=== PATIENT | male | born 1970 | race Caucasian/White ===

== ENCOUNTER 2019-05-07 12:46 | Inpatient (IN) | payer OTHER ==
[~2019-05-07] VITALS: Ht 167.6 cm; Wt 63.6 kg
[~2019-05-07 12:46] MED LIST: ETOMIDATE 20 MG INJ ONE; SUCCINYLCHOLINE CHLORIDE 100 MG/5 ML SYG IV ONE
[2019-05-07 12:57] VITALS: Ht 167.6 cm; Wt 63.6 kg
[2019-05-07] MEDS ORDERED: SOD CHLORIDE 0.9% 2,000 ML IV STA (12:57)
[2019-05-07] MEDS ORDERED: LIDOCAINE 1% (MPF) 5 ML VIAL SC ONE (13:00)
--- NOTE | 2019-05-07 13:41 | ERD ---
ER Documentation Chief Complaint Chief Complaint ABD PAIN. HYPOTENSION. ALTERED. IV DRUG USER HPI This is a 49-year-old male who is diabetic, left forearm amputation, IV drug user, he was brought in from home because he was altered. He has not been taking his insulin apparently and he is trying to go through detox off heroin using methadone. He has been eating at home for the past couple days. There is very limited history and the patient does not give a good history whatsoever due to his mental status ROS All systems reviewed and are negative except as per history of present illness. Medications Home Meds Unable to Obtain Active Prescriptions or Reported Meds Allergies Allergies: Coded Allergies: No Known Allergy (Unverified , 05/07/19) FmHx Unable to obtain due to mental status Physical Exam Vitals Vital Signs Date Temp Pulse Resp B/P (MAP) Pulse Ox O2 O2 Flow FiO2 Time Delivery Rate 05/07/19 99.2 130 32 120/71 99 Nasal 3.0 17:56 (87) Cannula 05/07/19 99.2 132 34 108/67 99 Nasal 3.0 17:23 (81) Cannula 05/07/19 99.2 132 35 110/61 100 Nasal 3.0 16:32 (77) Cannula 05/07/19 99.2 133 26 127/56 96 Nasal 3.0 16:23 (79) Cannula 05/07/19 99.2 130 28 83/62 (69) 100 Nasal 3.0 15:30 Cannula 05/07/19 2.0 13:47 05/07/19 99.2 120 28 91/61 (71) 100 Nasal 2.0 13:30 Cannula 05/07/19 Nasal 3 13:17 Cannula 05/07/19 99.2 121 30 83/83 (83) 63 12:57 Physical Exam Const: Well-developed, well-nourished Head: Atraumatic, normocephalic Eyes: Normal Conjunctiva, PERRLA, EOMI, normal sclera, no nystagmus ENT: Normal External Ears, Nose and Mouth, dry mucus membranes. Neck: Full range of motion. No meningismus, no lymphadenopathy. Resp: Clear to auscultation bilaterally, no wheezing, rhonchi, rales Cardio: Tachycardia, no murmurs, S1 S2 present] Abd: Soft, non tender x 4, non distended. Normal bowel sounds, no guarding or rebound, no pulsitile abdominal masses or bruits Skin: No petechiae or rashes, no ecchymosis , no maculopapular rash Back: No midline or flank tenderness Ext: No cyanosis, or edema, FROM x 4, normal inspection, neurovascular ly intact x 4 Neur: [Difficult to assess. Patient is awake answers limited questions, gross range of motion x4 Psych: Cannot assess Result Diagram: 05/07/19 1341 05/07/19 1341 Results 24 hrs Laboratory Tests Test 05/07/19 12:57 05/07/19 13:22 05/07/19 13:41 05/07/19 13:42 Blood Gas Blood arterial Specimen Source Arterial Blood 05/07/2019 1:38: Date Drawn 15 PM Arterial Blood 7.195 pH (Temp corrected ) Arterial Blood 17.7 mmhg pCO2 (Temp correct) Arterial Blood 120.5 mmHG pO2 (Temp corrected ) Arterial Blood 6.7 mmol/L HCO3 Arterial Blood -19.1 mmol/L Base Excess Arterial Blood 98.2 mmHG Oxygen Saturati on Benedict Test N/A Arterial Blood Right Brachial Gas Puncture Site Arterial 0.4 % Blood Carboxyhe moglobin Arterial Blood 0.3 % Methemoglobin Blood Gas A-a 51.1 mmHg O2 Differential Oxyhemoglobin 97.5 % Percent Blood Gas 37.0 C Temperature Blood Gas NASAL CANNULA Modality FiO2 27.0 % Blood Gas TEE [place] Critical Value Read Back Blood Gas [facility] Notified Whom Blood Gas 05/07/2019 1:41: Notified Time 46 PM Bedside Glucose 493 mg/dL White Blood 28.0 10^3/ul Count Red Blood Count 5.28 10^6/ul Hemoglobin 13.1 g/dl Hematocrit 38.0 % Mean 72.0 fl Corpuscular Volume Mean 24.8 pg Corpuscular Hemoglobin Mean 34.5 g/dl Corpuscular Hemoglobin Conc ent Red Cell 13.3 % Distribution Width Platelet Count 289 10^3/UL Mean Platelet 10.0 fl Volume Immature 12.700 % Granulocytes % Neutrophils % % Segmented 37 % Neutrophils % (Manual) Band 49 % Neutrophils % (Manual) Lymphocytes % % Reactive 1 % Lymphocytes % (Manual) Monocytes % % Monocytes % 6 % (Manual) Eosinophils % % Basophils % % Metamyelocytes 1 % % (manual) Myelocytes % 3 % (Manual) Promyelocytes % 3 % (Manual) Nucleated Red 0.0 /100WBC Blood Cells % Immature 3.550 10^3/ul Granulocytes # Neutrophils # 10^3/ul Neutrophils # 14.2 10^3/ul (Manual) Band 13.7 10^3/ul Neutrophils # Lymphocytes # 10^3/ul Reactive 0.2 10^3/ul Lymphocytes # Monocytes # 10^3/ul Monocytes # 1.6 10^3/ul (Manual) Eosinophils # 10^3/ul Basophils # 10^3/ul Metamyelocytes 0.2 10^3/ul # Myelocytes # 0.8 10^3/ul Promyelocytes # 0.8 10^3/ul Nucleated Red 10^3/ul Blood Cells # Pathologist YES Review (Hematol ogy) Platelet NORMAL Estimate Poikilocytosis 2+ Sodium Level 121 mmol/L Potassium Level 3.9 mmol/L Chloride Level 89 mmol/L Carbon Dioxide 8 mmol/L Level Anion Gap 24 Blood Urea 34 mg/dl Nitrogen Creatinine 1.48 mg/dl Est Glomerular 50 mL/min Filtrat Rate mL/min Glucose Level 514 mg/dl Calcium Level 10.3 mg/dl Phosphorus 2.7 mg/dl Level Magnesium Level 2.0 mg/dl Total Bilirubin 0.3 mg/dl Direct 0.00 mg/dl Bilirubin Indirect 0.3 mg/dl Bilirubin Aspartate Amino 43 IU/L Transf (AST/SGO T) Alanine 34 IU/L Aminotransferas e (ALT/SGPT) Alkaline 190 IU/L Phosphatase Total Protein 7.6 g/dl Albumin 3.5 g/dl Globulin 4.10 g/dl Albumin/Globuli 0.85 n Ratio POC Venous 3.2 mmol/L Lactate Test 05/07/19 16:01 05/07/19 16:09 Bedside Glucose 419 mg/dL Urine Color YELLOW Urine Clarity SLIGHTLY CLOUDY Urine pH 6.0 Urine Specific 1.011 [place] Urine Ketones 1+ mg/dL Urine Nitrite NEGATIVE mg/dL Urine Bilirubin NEGATIVE mg/dL Urine NEGATIVE mg/dL Urobilinogen Urine Leukocyte NEGATIVE Cynthia/ul Esterase Urine 0 /HPF Microscopic RBC Urine 7 /HPF Microscopic WBC Urine 3+ mg/dL Hemoglobin Urine Glucose 3+ mg/dL Urine Total 1+ mg/dl Protein Current Medications Medications Dose Sig/Emiliano Start Time Status Last (Trade) Ordered Route PRN Stop Time Admin Dose Reason Admin Sodium 2,000 ml @ Q1H STAT 05/07/19 DC 05/07/19 Chloride 2,000 mls/hr IV 12:57 13:29 05/07/19 13:56 Lidocaine 5 ml ONCE ONCE 05/07/19 DC (Xylocaine SC 13:00 1% (Mpf)) 05/07/19 13:48 Sodium 1,910 ml BOLUS OVER 2 05/07/19 DC Chloride HOURS STAT 14:57 (NS) IV* 05/07/19 15:01 Cefepime HCl 50 ml @ ONCE STAT 05/07/19 DC 05/07/19 100 mls/hr IVPB 14:57 15:12 05/07/19 15:26 Vancomycin 250 ml @ ONCE ONCE 05/07/19 DC 05/07/19 HCl 125 mls/hr IVPB 15:00 16:03 05/07/19 16:59 Potassium 1,000 ml @ Q0M IV 05/07/19 Chloride/Sodi 0 mls/hr 14:59 um Chloride Potassium 1,000 ml @ Q0M IV 05/07/19 05/07/19 Chloride/Dext 0 mls/hr 14:59 17:10 joann/ Sod Cl Potassium 1,000 ml @ Q0M IV 05/07/19 05/07/19 Chloride/Sodi 0 mls/hr 14:59 16:10 um Chloride Potassium 1,000 ml @ Q0M IV 05/07/19 Chloride/Dext 0 mls/hr 14:59 joann/ Sod Cl Sodium 1,000 ml @ Q0M IV 05/07/19 Chloride 0 mls/hr 14:59 1,000 ml @ Q0M IV 05/07/19 Dextrose/Sodi 0 mls/hr 14:59 um Chloride Insulin 101 ml @ ER DKA 05/07/19 05/07/19 Human 6.43 mls/hr PROTOCOL IV 15:00 16:08 Regular 100 unit/ Sodium Chloride Lactated 640 ml @ ONCE ONCE 05/07/19 DC 05/07/19 Ringer's 640 mls/hr IV 15:00 15:12 05/07/19 15:59 HYPOGLYCEM 05/07/19 Miscellaneous HYPOGLYCEMIA PROTOCOL PRN 15:00 TREATMENT XX Information .HYPOGLYCEMIA (* PROTOCOL Miscellaneous Pharmacy Order) Dextrose 50 ml Q15M PRN 05/07/19 (D50w IV 15:00 Syringe) .DECREASED GLUCOSE Dextrose 25 ml Q15M PRN 05/07/19 (D50w IV 15:00 Syringe) .DECREASED GLUCOSE Morphine 4 mg ONCE STAT 05/07/19 DC 05/07/19 Sulfate IV 15:04 15:14 (morphine) 05/07/19 15:12 Morphine 4 mg STK-MED 05/07/19 DC Sulfate ONCE .ROUTE 15:10 (morphine) 05/07/19 15:11 IV Flush 10 ml PRN PRN 05/07/19 (NS 10 ml) IV IV 17:30 PROTOCOL Procedures/MDM Patient has low blood pressure and is a very difficult stick. He is in need of any emergent PICC line. One was ordered. [place] [id number] Radiology Main Line: [phone] DIAGNOSTIC IMAGING REPORT Patient: ELÍAS SOLIS : 1970 Age: 49 Sex: M MR #: [id number] DOS: 05/07/19 1525 Ordering MD: ADRIANA OLIVEIRA DO Location: E/R Room/Bed: PROCEDURE: CT Abdomen and Pelvis Without Intravenous Contrast CLINICAL INDICATION: TECHNIQUE: Axial computed tomography images of the abdomen and pelvis without intravenous contrast. Sagittal and coronal reformatted images were created and reviewed. CTDIvol (mGy) = 12.40; total DLP (mGy-cm) = 786.69. This CT exam was performed using one or more of the following dose reduction techniques: automated exposure control, adjustment of the mA and/or kV according to patient size, and/or use of iterative reconstruction technique. DICOM images are available. COMPARISON: None FINDINGS: LUNG BASES: Multiple noncalcified nodules at the lung bases, measuring up to 15 mm in diameter. 1 lesion, seen in the anterior aspect of the right lung base, demonstrate central cavitation. PLEURAL SPACE: Small right pleural effusion. ABDOMEN: LIVER: Unremarkable. GALLBLADDER AND BILE DUCTS: Unremarkable. No calcified stones. No ductal dilation. PANCREAS: Unremarkable. No ductal dilation. SPLEEN: Unremarkable. No splenomegaly. ADRENALS: Unremarkable. No mass. KIDNEYS AND URETERS: Nonobstructing 4 mm calculus mid left kidney. No hydronephrosis. The right kidney is unremarkable in appearance. STOMACH AND BOWEL: Retained stool in the ascending colon. No inflammatory changes of the bowel. No obstruction. No mucosal thickening. PELVIS: APPENDIX: No findings to suggest acute appendicitis. BLADDER: Unremarkable. No stones. REPRODUCTIVE: Unremarkable as visualized. ABDOMEN and PELVIS: INTRAPERITONEAL SPACE: Unremarkable. No free air. No significant fluid collection. BONES/JOINTS: Scoliosis and degeneration of the lumbar spine. No osteolytic bone lesions are noted. No acute fracture. No dislocation. SOFT TISSUES: Mild gynecomastia bilaterally. VASCULATURE: Unremarkable. LYMPH NODES: Unremarkable. No enlarged lymph nodes. IMPRESSION: 1. Multiple noncalcified nodules at the lung bases, measuring up to 15 mm in diameter. 1 lesion, seen in the anterior aspect of the right lung base, demonstrate central cavitation. The nodules are suspicious for metastatic disease. Other entities such as infection / septic emboli or autoimmune disease could have a similar appearance. Consider CT chest for further evaluation. 2. Nonobstructing 4 mm calculus mid left kidney. No hydronephrosis. 3. Retained stool in the ascending colon. No inflammatory changes of the bowel. 4. No abnormal mass, adenopathy, or ascites in the abdomen and pelvis. RPTAT: [facility] Aneesh Sibley Physician Lodging Manager Date Time Electronically viewed and signed by Aneesh Sibley Physician Lodging Manager on 05/07/2019 16:15 C/ CC: ADRIANA OLIVEIRA DO [id number] [place] [address] Radiology Main Line: [phone] DIAGNOSTIC IMAGING REPORT Patient: ELÍAS SOLIS : 1970 Age: 49 Sex: M MR #: [id number] DOS: 05/07/19 1257 Ordering MD: ADRIANA OLIVEIRA DO Location: E/R Room/Bed: PROCEDURE: CT Brain without contrast. CLINICAL INDICATION: Hyperglycemia TECHNIQUE: A CT of the brain was performed on a GE LightSpeed 64-slice CT scanner utilizing axial imaging from the skull base through the vertex without IV contrast. Multiplanar reformatted images were made. Images were reviewed on a PACS workstation. The CTDIvol is 36.21 mGy and the DLP is 634.23 mGycm. DICOM images are available. One or more of the following dose reduction techniques were utilized: 1.) Automated exposure control 2.) Adjustment of the mA +/- kV according to patient's size 3.) Use of iterative reconstruction technique. COMPARISON: None FINDINGS: There is no intracranial hemorrhage, mass effect, or midline shift. No extra- axial fluid collection is seen. The ventricles and sulci are normal in size and configuration. The density of the brain is normal, and the mcdonald white matter differentiation appears well-preserved. The visualized paranasal sinuses and osseous structures are grossly unremarkable. IMPRESSION: 1. No evidence of acute intracranial pathology. Diomedes Russo Physician Date Time Electronically viewed and signed by Diomedes Russo Physician on 05/07/2019 16:03 ML/ CC: ADRIANA OLIVEIRA DO [id number] [place] [address] Radiology Main Line: [phone] DIAGNOSTIC IMAGING REPORT Patient: ELÍAS SOLIS : 1970 Age: 49 Sex: M MR #: [id number] DOS: 05/07/19 1257 Ordering MD: ADRIANA OLIVEIRA DO Location: E/R Room/Bed: PROCEDURE: XR Chest, 1 View CLINICAL INDICATION: Hyperglycemia TECHNIQUE: Frontal view of the chest. COMPARISON: None FINDINGS: LUNGS: 1.5 cm nonspecific nodule in the lateral aspect of the right upper lobe, overlying the right fifth posterior rib. Mild atelectasis at the lung bases. No consolidative pulmonary infiltrates noted. PLEURAL SPACE: Unremarkable. No pneumothorax. HEART: Mild cardiomegaly. MEDIASTINUM: Unremarkable. BONES/JOINTS: Old healed left rib fracture. Mild degenerative spine changes. TUBES, LINES AND DEVICES: There is a right-sided PICC line present, with distal tip overlying the right atrium. IMPRESSION: 1. There is a right-sided PICC line present, with distal tip overlying the right atrium. 2. 1.5 cm nonspecific nodule in the lateral aspect of the right upper lobe. Consider CT of the chest for further assessment. 3. Mild atelectasis at the lung bases. No consolidative pulmonary infiltrates noted. RPTAT: [facility] Aneesh Sibley, Physician Lodging Manager Date Time Electronically viewed and signed by Aneesh Sibley Physician Lodging Manager on 05/07/2019 16:07 RmC/ CC: ADRIANA OLIVEIRA DO [id number] Patient is in DKA we started DKA protocol. Admit to ICU to Dr. Froilan Johnson. Critical Care Time: 45 minutes Treatments/Evaluations: Close monitoring and treatment of unstable vital signs, cardiorespiratory, and neurologic status, while maintaining tight balance of fluid, respiratory, and cardiac interventions. This time includes discussing the case with the patient and the patient's family. This time does not include all procedures stated elsewhere in this record. This time also includes reviewing old records, labs and radiological studies. This time includes examining and re- examining the patient. Additionally, this time also includes arranging care with admitting and consulting physicians. Departure Diagnosis: Primary Impression: DKA (diabetic ketoacidoses) Diabetes mellitus type: type 1 Diabetes mellitus complication detail: without coma Qualified Codes: E10.10 - Type 1 diabetes mellitus with ketoacidosis without coma Condition: ADRIANA Baird DO May 07, 2019 13:41
[2019-05-07] MEDS ORDERED: CEFEPIME 2GM/50 ML (PMX) 50 ML IVPB STA (14:57)
[2019-05-07] MEDS ORDERED: SODIUM CHLORIDE 0.9% 1L BAG IV* STA (14:57)
[2019-05-07] MEDS ORDERED: D10/0.45% NACL + KCL 30 MEQ 1,000 ML IV SCH ×2 (14:59→19:27)
[2019-05-07] MEDS ORDERED: NS + KCL 40 MEQ 1,000 ML IV SCH ×2 (14:59→19:27)
[2019-05-07] MEDS ORDERED: DEXTROSE 10%/0.45% NACL 1,000 ML IV SCH ×2 (14:59→19:27)
[2019-05-07] MEDS ORDERED: D10/0.45% NACL + KCL 40 MEQ 1,000 ML IV SCH ×2 (14:59→19:27)
[2019-05-07] MEDS ORDERED: SOD CHLORIDE 0.9% 1,000 ML IV SCH ×4 (14:59→19:30)
[2019-05-07] MEDS ORDERED: INSULIN REGULAR, HUMAN 100 UNIT in SOD CHLORIDE 0.9% 100 ML IV SCH ×4 (15:00→19:30)
[2019-05-07] MEDS ORDERED: VANCOMYCIN 1 GM (PMX) 250 ML IVPB ONE (15:00)
[2019-05-07] MEDS ORDERED: DEXTROSE 50% 50 ML SYRINGE IV PRN ×4 (15:00→19:30)
[2019-05-07] MEDS ORDERED: LACTATED RINGER'S 640 ML IV ONE (15:00)
[2019-05-07] MEDS ORDERED: morphine 4 MG/ML VIAL IV STA (15:04)
[2019-05-07] MEDS ORDERED: morphine 4 MG/ML VIAL ONE (15:10)
[2019-05-07] MEDS: NS + KCL 30 MEQ 1,000 ML IV SCH ×2 (16:10→23:30)
[2019-05-07] MEDS ORDERED: ACETAMINOPHEN 325 MG TAB PO PRN ×2 (18:30→20:00)
[2019-05-07] MEDS ORDERED: ONDANSETRON 4 MG INJ IV PRN ×2 (18:30→20:00)
[2019-05-07] MEDS ORDERED: NS + KCL 30 MEQ 1,000 ML IV SCH (19:27)
[2019-05-07] MEDS ORDERED: MAGNESIUM SULFATE 2 GM/50 ML 50 ML IVPB ONE (19:30)
[2019-05-07] MEDS ORDERED: ACCU-CHEK XX SCH (19:30)
[2019-05-07] MEDS ORDERED: VANCOMYCIN IV PER PHARMACY XX SCH (19:30)
[2019-05-07] MEDS ORDERED: MAGNESIUM SULFATE 1 GM/D5W 100 ML IVPB ONE (19:30)
[2019-05-07] MEDS ORDERED: NPH, HUMAN INSULIN ISOPHANE 3ML VIAL SC SCH (19:30)
[2019-05-07] MEDS ORDERED: morphine 4 MG/ML VIAL IV PRN (20:00)
[2019-05-07] MEDS: SOD CHLORIDE 0.9% 1,000 ML IV SCH ×2 (20:45→23:30)
[2019-05-07] MEDS: INSULIN ASPART [NOVOLOG] 3 ML PEN SC SCH ×2 (20:45→23:30)
[2019-05-07 20:46] VITALS: PULSE 128
[2019-05-07 21:00] VITALS: BP 99/54; PULSE 130; RESP 28
[2019-05-07 22:00] VITALS: BP 95/47; PULSE 129; RESP 27
[2019-05-07 23:00] VITALS: BP 104/55; PULSE 136; RESP 19
[2019-05-07] MEDS: PIPER-TAZO 3.375 GM IV (PMX) 100 ML IVPB SCH (23:15)
--- NOTE | 2019-05-07 23:19 | QN ---
Documentation Comment I was called to the emergency department room 114 for intubation. When I arrived the patient was altered and tachypneic. He is taking fast and shallow respirations. He was not responding to commands. He will need intubation for airway protection and acidosis. He is in DKA at this time. Endotracheal Intubation by me: Pre assessment performed. Pre-oxygenation performed with 100% oxygen RSI: Performed w/o complication or hypoxic events. Medications as ordered. Blade: MAC 4 video laryngoscope ET Tube: 7.5 cm Depth: 23 cm at the lip Intubation confirmed by colorimetric CO2, equal breath sounds, quiet over the stomach. Chest x-ray is pending. MADELYN BOYER MD May 07, 2019 23:19
[2019-05-07 23:20] VITALS: RESP 20
--- NOTE | 2019-05-07 23:57 | QN ---
Documentation Comment H&P dic a/p 1. ams, presumed to be related to metabolic derangements 2. dka, unclear precipitant, cont treatment per protocol 3. res: resp failure, on vent (b) pulm nodules, clarify with ct 4. renal: acute renal failure, improving (b) metabolic acidosis, unclear etiology (c) hypophos (d) hypoK (e) hypoNa 5. r/o mi 6. presuymed sepsis, unclear source PHONG BRIGGS MD May 07, 2019 23:57
[2019-05-08] VITALS (91 sets, daily range): BP systolic 67–137; BP diastolic 36–81; PULSE 93–135; RESP 19–37
[2019-05-08] MEDS ORDERED: PROPOFOL 100 ML IV SCH
[2019-05-08] MEDS: PROPOFOL 100 ML IV SCH ×4 (00:01→20:57)
[2019-05-08] MEDS ORDERED: DEXTROSE 50% 50 ML SYRINGE IV PRN ×2 (00:30)
[2019-05-08] MEDS ORDERED: INSULIN HUMAN REGULAR 100 UNIT in SOD CHLORIDE 0.9% 99 ML IV SCH (00:30)
[2019-05-08] MEDS: ACCU-CHEK XX SCH ×7 (01:29→06:32)
[2019-05-08] MEDS ORDERED: IOHEXOL 300MG/ML 150 ML BTL ONE (02:03)
[2019-05-08] MEDS ORDERED: SOD CHLORIDE 0.9% 100 ML ONE (02:03)
[2019-05-08] MEDS: SOD CHLORIDE 0.9% 1,000 ML IV SCH ×4 (02:09→16:50)
[2019-05-08] MEDS: PIPER-TAZO 3.375 GM IV (PMX) 100 ML IVPB SCH ×3 (03:23→19:32)
--- NOTE | 2019-05-08 03:26 | HP ---
DATE OF ADMISSION: 05/07/2019 CHIEF COMPLAINT: Altered mental status. HISTORY OF PRESENT ILLNESS: The patient presents to the emergency room at [facility] with a ltered mental status. At the time of my arrival, he is intubated, unable to provide history. Calls to family have not been answered. Per my discussion with the emergency room, he has been having diff iculties where he is trying to get off of heroin and titrate methadone at home, but he was found alte red and brought here to the hospital. PAST MEDICAL HISTORY: 1. Significant for left below the elbow amputation, presumed to be related to infectious complicatio ns of intravenous drug use. 2. Diabetes. MEDICATIONS AN OUTPATIENT: Unknown at this time. SOCIAL HISTORY: The patient lives at home in [place], unclear functional status, unknown tobacco, a lcohol, or illicit drug use. FAMILY HISTORY: Unknown. REVIEW OF SYSTEMS: Unobtainable secondary to patient's status. PHYSICAL EXAMINATION: VITAL SIGNS: Blood pressure is 101/36, pulse rate 128, respirations 33, temperature is 99.2, saturat ing 99% on 3 liters nasal cannula. GENERAL: This is a middle-aged man found in bed, moderate respiratory distress, not responding to vo ice or noxious stimuli. HEENT: Normocephalic, atraumatic, no evident scleral icterus or perioral cyanosis. Mucous membranes are dry. NECK: Soft and supple without masses. No evidence of jugular venous distention or carotid bruits. CHEST: Clear to auscultation and percussion anteriorly. HEART: Tachycardic rate, regular rhythm. S1, S2. No added sounds. ABDOMEN: Soft, nontender, nondistended without palpable hepatosplenomegaly. EXTREMITIES: Without clubbing, cyanosis, or edema. Pedal pulses are not palpable. Left arm amputat ion is noted. There is a stage IV decubitus ulcer over the left greater trochanter and unstageable o mirta the right greater trochanter. SKIN: Otherwise without rashes. NEUROLOGIC: Grossly intact. LABORATORY STUDIES: Reveal a hemoglobin of 13.1 g/dL, white count of 28,000, platelets of 289,000, s odium 121, potassium 3.9, chloride 89, bicarbonate 8, BUN 34, creatinine 1.48, glucose 514. Liver fu nction tests are essentially unremarkable. Calcium 10.3. Initial lactate is 3.2. UA is negative fo r signs of infection. Arterial blood gas reveals a pH of 7.195, PCO2 of 17.7, PO2 of 120, bicarbonat e of 6.7, satting 98%. CT scan of brain reveals no acute intracranial lesions. Chest x-ray shows no acute infiltrates or effusions. CT scan of abdomen and pelvis shows some small pulmonary nodules, b ut no other acute pathology. ASSESSMENT AND PLAN: 1. Diabetic ketoacidosis. Begin insulin drip and aggressive fluid hydration. 2. Altered mental status, presumed to be related to metabolic derangement. Etiology of these derang ements is very much unclear at this time. 3. Bilateral greater trochanter decubitus ulcers. Continue to monitor. Giving IV antibiotics for l eukocytosis and altered mental status at this time. 4. Hypophosphatemia, replete. 5. Hypokalemia, replete. 6. Respiratory failure. Continue ventilatory support as per pulmonary consultation. 7. Acute renal failure, improved with hydration. 8. Rule out myocardial infarction. Dictated By: PHONG BRIGGS MD RER/NTS Conf#: [id number] DID#: [id number]
[2019-05-08] MEDS: INSULIN ASPART [NOVOLOG] 3 ML PEN SC SCH ×6 (03:30→23:51)
[2019-05-08] MEDS: NORepinephrine 8MG/250 ML (PMX 250 ML IV SCH ×2 (03:36→22:27)
[2019-05-08] MEDS: VANCOMYCIN 1 GM 250 ML IVPB SCH ×2 (04:10→16:50)
[2019-05-08] MEDS: NPH, HUMAN INSULIN ISOPHANE 3ML VIAL SC SCH ×2 (05:17→17:18)
[2019-05-08] MEDS ORDERED: LEVETIRACETAM 1000 MG (PMX) 100 ML IVPB STA (07:03)
[2019-05-08] MEDS ORDERED: LORAZEPAM 2 MG INJ IV ONE (07:30)
[2019-05-08] MEDS ORDERED: POTASSIUM CHLORIDE 50 ML IVPB PRN (10:00)
[2019-05-08] MEDS: ACETAMINOPHEN 650MG/20.3ML CUP NGT PRN (10:13)
[2019-05-08] MEDS: POTASSIUM CHLORIDE 50 ML IVPB SCH ×3 (10:14→13:48)
--- NOTE | 2019-05-08 12:24 | PN ---
Date/Time of Note Date/Time of Note DATE: 05/08/19 TIME: 12:21 Assessment/Plan VTE Prophylaxis [place] [facility] risk: 8 SCD applied [place] [facility] No SCD contraindicated: other Pharmacological prophylaxis: LMWH Lines/Catheters IV Catheter Type (from [facility]): PICC Line Central line still needed: Yes Urinary Cath still in place: Yes Reason Cath still needed: pres ulcer contaminated by urine Assessment/Plan Assessment/Plan 1. sepsis, secondary to staph bacteremia, unclear source, consider spinal abscess or endocarditis most likely (Picc placed in er at time of arrival), cont vanco and zosyn while awaiting sensitivities (b) septic shock cont levophed 2. cards:L r/o endocarditis, aweait echo, cards eval, favor ELIE 3. pulm: cont vent support (b) ongoign acidosis, unclear cause, ?deep abscess monitor, consider tagged wbc if not improved 4. renal: acute renal failure, resolved 5. dka resolved Result Diagram: 05/08/190 05/08/19439 Results 24hrs Laboratory Tests Test 05/07/19 12:57 05/07/19 13:22 05/07/19 13:41 05/07/19 13:42 Blood Gas Blood arterial Specimen Source Arterial Blood 05/07/2019 1:38: Date Drawn 15 PM Arterial Blood 7.195 *L pH (Temp corrected ) Arterial Blood 17.7 L pCO2 (Temp correct) Arterial Blood 120.5 H pO2 (Temp corrected ) Arterial Blood 6.7 *L HCO3 Arterial Blood -19.1 L Base Excess Arterial Blood 98.2 H Oxygen Saturati on Benedict Test N/A Arterial Blood Right Brachial Gas Puncture Site Arterial 0.4 Blood Carboxyhe moglobin Arterial Blood 0.3 Methemoglobin Blood Gas A-a 51.1 H O2 Differential Oxyhemoglobin 97.5 Percent Blood Gas 37.0 Temperature Blood Gas NASAL CANNULA Modality FiO2 27.0 Blood Gas TEE Medina Critical Value Read Back Blood Gas MDA Notified Whom Blood Gas 05/07/2019 1:41: Notified Time 46 PM Bedside Glucose 493 *H White Blood 28.0 H Count Red Blood Count 5.28 Hemoglobin 13.1 L Hematocrit 38.0 L Mean 72.0 L Corpuscular Volume Mean 24.8 L Corpuscular Hemoglobin Mean 34.5 Corpuscular Hemoglobin Conc ent Red Cell 13.3 Distribution Width Platelet Count 289 Mean Platelet 10.0 Volume Immature 12.700 H Granulocytes % Neutrophils % Segmented 37 L Neutrophils % (Manual) Band 49 H Neutrophils % (Manual) Lymphocytes % Reactive 1 H Lymphocytes % (Manual) Monocytes % Monocytes % 6 (Manual) Eosinophils % Basophils % Metamyelocytes 1 H % (manual) Myelocytes % 3 H (Manual) Promyelocytes % 3 H (Manual) Nucleated Red 0.0 Blood Cells % Immature 3.550 H Granulocytes # Neutrophils # Neutrophils # 14.2 H (Manual) Band 13.7 H Neutrophils # Lymphocytes # Reactive 0.2 H Lymphocytes # Monocytes # Monocytes # 1.6 H (Manual) Eosinophils # Basophils # Metamyelocytes 0.2 H # Myelocytes # 0.8 H Promyelocytes # 0.8 H Nucleated Red Blood Cells # Pathologist YES Review (Hematol ogy) Platelet NORMAL Estimate Poikilocytosis 2+ Sodium Level 121 L Potassium Level 3.9 Chloride Level 89 L Carbon Dioxide 8 *L Level Anion Gap 24 H Blood Urea 34 H Nitrogen Creatinine 1.48 H Est Glomerular 50 L Filtrat Rate mL/min Glucose Level 514 *H Calcium Level 10.3 H Phosphorus 2.7 Level Magnesium Level 2.0 Total Bilirubin 0.3 Direct 0.00 Bilirubin Indirect 0.3 Bilirubin Aspartate Amino 43 Transf (AST/SGO T) Alanine 34 Aminotransferas e (ALT/SGPT) Alkaline 190 H Phosphatase Total Protein 7.6 Albumin 3.5 Globulin 4.10 H Albumin/Globuli 0.85 n Ratio POC Venous 3.2 *H Lactate Test 05/07/19 16:01 05/07/19 16:09 05/07/19 16:59 05/07/19 19:30 Bedside Glucose 419 *H Urine Color YELLOW Urine Clarity SLIGHTLY CLOUDY A Urine pH 6.0 Urine Specific 1.011 Kermit Urine Ketones 1+ H Urine Nitrite NEGATIVE Urine Bilirubin NEGATIVE Urine NEGATIVE Urobilinogen Urine Leukocyte NEGATIVE Esterase Urine 0 Microscopic RBC Urine 7 H Microscopic WBC Urine 3+ H Hemoglobin Urine Glucose 3+ H Urine Total 1+ H Protein Blood Gas Blood venous Specimen Source Arterial Blood 05/07/2019 5:30 Date Drawn :51 PM Arterial Blood OTHER Gas Puncture Site Benedict Test N/A Venous Blood pH 7.110 *L Venous Blood 30.1 L pCO2 (Temp Corrected ) Venous Blood 44.4 H pO2 (Temp Corrected ) Venous Blood 9.3 L HCO3 Venous Blood 75.0 Oxygen Saturation Venous Blood -18.9 L Base Excess Venous Blood 12.9 Total Hemoglobin Venous Blood 74.6 Oxyhemoglobin Venous Blood 0.4 Methemoglobin Blood Gas A-a 112.5 O2 Differential Carboxyhemoglob 0.1 in Blood Gas 37.0 Temperature Blood Gas NASAL CANNULA Modality FiO2 27.0 Blood Gas TEE Medina Critical Value Read Back Blood Gas MDA Notified Whom Blood Gas 05/07/2019 5:39 Notified Time :29 PM Sodium Level 129 L Potassium Level 5.9 #H Chloride Level 109 # Carbon Dioxide 13 L Level Anion Gap 7 # Blood Urea 25 H Nitrogen Creatinine 0.66 Est Glomerular > 60 Filtrat Rate mL/min Glucose Level 283 #H Lactic Acid 2.5 *H Level Calcium Level 8.1 L Phosphorus 1.1 #L Level Magnesium Level 1.4 L Acetone Level NEGATIVE (Chemistry) Test 05/07/19 21:09 05/07/19 21:29 05/07/19 21:46 05/07/19 22:42 Blood Gas Blood arterial Specimen Source Arterial Blood 05/07/2019 9:15: Date Drawn 33 PM Arterial Blood 7.185 *L pH (Temp corrected ) Arterial Blood 37.0 pCO2 (Temp correct) Arterial Blood 91.9 pO2 (Temp corrected ) Arterial Blood 13.7 L HCO3 Arterial Blood -13.7 L Base Excess Arterial Blood 96.4 Oxygen Saturati on Benedict Test ACCEPTAB Arterial Blood Right Radial Gas Puncture Site Arterial 0.3 Blood Carboxyhe moglobin Arterial Blood 0.4 Methemoglobin Blood Gas A-a 100.2 H O2 Differential Oxyhemoglobin 95.7 Percent Blood Gas 37.0 Temperature Blood Gas 20 Actual Respiration Rat e Blood Gas NASAL CANNULA Modality FiO2 33.0 Blood Gas [facility] Critical Value Read Back Blood Gas Notified Whom Blood Gas 05/07/2019 9:23: Notified Time 46 PM Bedside Glucose 284 H 254 H Sodium Level 128 L Potassium Level 3.2 #L Chloride Level 106 Carbon Dioxide 14 L Level Anion Gap 8 Blood Urea 27 H Nitrogen Creatinine 0.74 Est Glomerular > 60 Filtrat Rate mL/min Glucose Level 244 H Lactic Acid 2.0 Level Calcium Level 9.6 Phosphorus 1.0 L Level Magnesium Level 1.7 Test 05/07/19 23:39 05/08/19 00:10 05/08/19 00:24 05/08/19 01:29 Bedside Glucose 256 H 250 H Blood Gas Blood arterial Specimen Source Arterial Blood 05/08/2019 12:23 Date Drawn :53 AM Arterial Blood 7.263 *L pH (Temp corrected ) Arterial Blood 32.1 L pCO2 (Temp correct) Arterial Blood 490.4 H pO2 (Temp corrected ) Arterial Blood 14.2 L HCO3 Arterial Blood -11.7 L Base Excess Arterial Blood 99.6 H Oxygen Saturati on Benedict Test ACCEPTAB Arterial Blood Right Radial Gas Puncture Site Arterial 0.3 Blood Carboxyhe moglobin Arterial Blood 0.4 Methemoglobin Blood Gas A-a 190.5 H O2 Differential Oxyhemoglobin 98.9 Percent Blood Gas 37.0 Temperature Blood Gas 20.0 Respiration Rate Blood Gas 31 Actual Respiration Rat e Blood Gas VENT - AC Modality FiO2 100.0 Blood Gas Tidal 500.0 Volume Blood Gas Low 5.0 PEEP Setting Blood Gas Jace Lanier RN Critical Value Read Back Blood Gas Kerrie Madden [facility] Notified Whom Blood Gas 05/08/2019 12:32 Notified Time :35 AM Lactic Acid 2.1 *H Level Troponin I < 0.012 Test 05/08/19 01:50 05/08/19 02:48 05/08/19 02:54 05/08/19 03:58 Bedside Glucose 246 H 284 H 196 Lactic Acid 2.2 *H Level Test 05/08/19 04:40 05/08/19 05:04 05/08/19 06:08 05/08/19 07:56 White Blood 16.2 #H Count Red Blood Count 4.21 #L Hemoglobin 10.5 L Hematocrit 30.3 #L Mean 72.0 L Corpuscular Volume Mean 24.9 L Corpuscular Hemoglobin Mean 34.7 Corpuscular Hemoglobin Conc ent Red Cell 13.9 Distribution Width Platelet Count 189 # Mean Platelet 10.5 H Volume Immature 1.900 H Granulocytes % Neutrophils % Segmented 25 L Neutrophils % (Manual) Band 48 H Neutrophils % (Manual) Lymphocytes % Lymphocytes % 4 L (Manual) Monocytes % Monocytes % 13 H (Manual) Eosinophils % Basophils % Metamyelocytes 10 H % (manual) Myelocytes % 1 H (Manual) Nucleated Red 0.0 Blood Cells % Immature 0.310 H Granulocytes # Neutrophils # Neutrophils # 5.3 (Manual) Band 7.7 H Neutrophils # Lymphocytes 0.6 L (Manual) Lymphocytes # Monocytes # Monocytes # 2.1 H (Manual) Eosinophils # Basophils # Metamyelocytes 1.6 H # Myelocytes # 0.1 H Nucleated Red Blood Cells # Toxic 1+ Granulation Dohle Bodies 1+ Platelet NORMAL Estimate Platelet @See below Morphology Comment Poikilocytosis 2+ Sodium Level 135 Potassium Level 3.1 L Chloride Level 111 H Carbon Dioxide 16 L Level Anion Gap 8 Blood Urea 22 H Nitrogen Creatinine 0.76 Est Glomerular > 60 Filtrat Rate mL/min Glucose Level 162 Lactic Acid 2.0 Level Calcium Level 9.7 Phosphorus 0.5 L Level Magnesium Level 1.7 Total Bilirubin 0.2 Direct 0.00 Bilirubin Indirect 0.2 Bilirubin Aspartate Amino 58 H Transf (AST/SGO T) Alanine 37 Aminotransferas e (ALT/SGPT) Alkaline 130 H Phosphatase Troponin I 0.017 Total Protein 5.2 #L Albumin 2.1 #L Globulin 3.10 Albumin/Globuli 0.67 n Ratio Bedside Glucose 193 262 H 104 Test 05/08/19 09:00 05/08/19 11:38 Urine Opiates Positive Screen Urine Negative Barbiturates Urine Negative Amphetamines Screen Urine Negative Benzodiazepines Screen Urine Cocaine Negative Screen Urine Negative Cannabinoids Bedside Glucose 253 H Subjective 24 Hr Interval Summary Free Text/Dictation no response to voice or exam Exam/Review of Systems Exam Vitals Vital Signs Date Temp Pulse Resp B/P (MAP) Pulse Ox O2 O2 Flow FiO2 Time Delivery Rate 05/08/19 126 26 83/49 (60) 100 11:45 05/08/19 99.2 Mechanical 11:00 Ventilator 05/08/19 50 09:04 05/07/19 2.0 20:40 Intake and Output 05/07/19 05/07/19 05/08/19 1515:00 23:00 07:00 IntakeIntake Total 512.86 ml 1533.441 ml OutputOutput Total 700 ml BalanceBalance 512.86 ml 833.441 ml Exam intubated, sedated, on pressor soft nt, no edema, decub bilat greater trochanter Results Results 24hrs Laboratory Tests Test 05/07/19 12:57 05/07/19 13:22 05/07/19 13:41 05/07/19 13:42 Blood Gas Blood arterial Specimen Source Arterial Blood 05/07/2019 1:38: Date Drawn 15 PM Arterial Blood 7.195 *L pH (Temp corrected ) Arterial Blood 17.7 L pCO2 (Temp correct) Arterial Blood 120.5 H pO2 (Temp corrected ) Arterial Blood 6.7 *L HCO3 Arterial Blood -19.1 L Base Excess Arterial Blood 98.2 H Oxygen Saturati on Benedict Test N/A Arterial Blood Right Brachial Gas Puncture Site Arterial 0.4 Blood Carboxyhe moglobin Arterial Blood 0.3 Methemoglobin Blood Gas A-a 51.1 H O2 Differential Oxyhemoglobin 97.5 Percent Blood Gas 37.0 Temperature Blood Gas NASAL CANNULA Modality FiO2 27.0 Blood Gas TEE Medina Critical Value Read Back Blood Gas MDA Notified Whom Blood Gas 05/07/2019 1:41: Notified Time 46 PM Bedside Glucose 493 *H White Blood 28.0 H Count Red Blood Count 5.28 Hemoglobin 13.1 L Hematocrit 38.0 L Mean 72.0 L Corpuscular Volume Mean 24.8 L Corpuscular Hemoglobin Mean 34.5 Corpuscular Hemoglobin Conc ent Red Cell 13.3 Distribution Width Platelet Count 289 Mean Platelet 10.0 Volume Immature 12.700 H Granulocytes % Neutrophils % Segmented 37 L Neutrophils % (Manual) Band 49 H Neutrophils % (Manual) Lymphocytes % Reactive 1 H Lymphocytes % (Manual) Monocytes % Monocytes % 6 (Manual) Eosinophils % Basophils % Metamyelocytes 1 H % (manual) Myelocytes % 3 H (Manual) Promyelocytes % 3 H (Manual) Nucleated Red 0.0 Blood Cells % Immature 3.550 H Granulocytes # Neutrophils # Neutrophils # 14.2 H (Manual) Band 13.7 H Neutrophils # Lymphocytes # Reactive 0.2 H Lymphocytes # Monocytes # Monocytes # 1.6 H (Manual) Eosinophils # Basophils # Metamyelocytes 0.2 H # Myelocytes # 0.8 H Promyelocytes # 0.8 H Nucleated Red Blood Cells # Pathologist YES Review (Hematol ogy) Platelet NORMAL Estimate Poikilocytosis 2+ Sodium Level 121 L Potassium Level 3.9 Chloride Level 89 L Carbon Dioxide 8 *L Level Anion Gap 24 H Blood Urea 34 H Nitrogen Creatinine 1.48 H Est Glomerular 50 L Filtrat Rate mL/min Glucose Level 514 *H Calcium Level 10.3 H Phosphorus 2.7 Level Magnesium Level 2.0 Total Bilirubin 0.3 Direct 0.00 Bilirubin Indirect 0.3 Bilirubin Aspartate Amino 43 Transf (AST/SGO T) Alanine 34 Aminotransferas e (ALT/SGPT) Alkaline 190 H Phosphatase Total Protein 7.6 Albumin 3.5 Globulin 4.10 H Albumin/Globuli 0.85 n Ratio POC Venous 3.2 *H Lactate Test 05/07/19 16:01 05/07/19 16:09 05/07/19 16:59 05/07/19 19:30 Bedside Glucose 419 *H Urine Color YELLOW Urine Clarity SLIGHTLY CLOUDY A Urine pH 6.0 Urine Specific 1.011 Kermit Urine Ketones 1+ H Urine Nitrite NEGATIVE Urine Bilirubin NEGATIVE Urine NEGATIVE Urobilinogen Urine Leukocyte NEGATIVE Esterase Urine 0 Microscopic RBC Urine 7 H Microscopic WBC Urine 3+ H Hemoglobin Urine Glucose 3+ H Urine Total 1+ H Protein Blood Gas Blood venous Specimen Source Arterial Blood 05/07/2019 5:30 Date Drawn :51 PM Arterial Blood OTHER Gas Puncture Site Benedict Test N/A Venous Blood pH 7.110 *L Venous Blood 30.1 L pCO2 (Temp Corrected ) Venous Blood 44.4 H pO2 (Temp Corrected ) Venous Blood 9.3 L HCO3 Venous Blood 75.0 Oxygen Saturation Venous Blood -18.9 L Base Excess Venous Blood 12.9 Total Hemoglobin Venous Blood 74.6 Oxyhemoglobin Venous Blood 0.4 Methemoglobin Blood Gas A-a 112.5 O2 Differential Carboxyhemoglob 0.1 in Blood Gas 37.0 Temperature Blood Gas NASAL CANNULA Modality FiO2 27.0 Blood Gas TEE Medina Critical Value Read Back Blood Gas [facility] Notified Whom Blood Gas 05/07/2019 5:39 Notified Time :29 PM Sodium Level 129 L Potassium Level 5.9 #H Chloride Level 109 # Carbon Dioxide 13 L Level Anion Gap 7 # Blood Urea 25 H Nitrogen Creatinine 0.66 Est Glomerular > 60 Filtrat Rate mL/min Glucose Level 283 #H Lactic Acid 2.5 *H Level Calcium Level 8.1 L Phosphorus 1.1 #L Level Magnesium Level 1.4 L Acetone Level NEGATIVE (Chemistry) Test 05/07/19 21:09 05/07/19 21:29 05/07/19 21:46 05/07/19 22:42 Blood Gas Blood arterial Specimen Source Arterial Blood 05/07/2019 9:15: Date Drawn 33 PM Arterial Blood 7.185 *L pH (Temp corrected ) Arterial Blood 37.0 pCO2 (Temp correct) Arterial Blood 91.9 pO2 (Temp corrected ) Arterial Blood 13.7 L HCO3 Arterial Blood -13.7 L Base Excess Arterial Blood 96.4 Oxygen Saturati on Benedict Test ACCEPTAB Arterial Blood Right Radial Gas Puncture Site Arterial 0.3 Blood Carboxyhe moglobin Arterial Blood 0.4 Methemoglobin Blood Gas A-a 100.2 H O2 Differential Oxyhemoglobin 95.7 Percent Blood Gas 37.0 Temperature Blood Gas 20 Actual Respiration Rat e Blood Gas NASAL CANNULA Modality FiO2 33.0 Blood Gas Terrance CHRISTIE RN Critical Value Read Back Blood Gas KB Notified Whom Blood Gas 05/07/2019 9:23: Notified Time 46 PM Bedside Glucose 284 H 254 H Sodium Level 128 L Potassium Level 3.2 #L Chloride Level 106 Carbon Dioxide 14 L Level Anion Gap 8 Blood Urea 27 H Nitrogen Creatinine 0.74 Est Glomerular > 60 Filtrat Rate mL/min Glucose Level 244 H Lactic Acid 2.0 Level Calcium Level 9.6 Phosphorus 1.0 L Level Magnesium Level 1.7 Test 05/07/19 23:39 05/08/19 00:10 05/08/19 00:24 05/08/19 01:29 Bedside Glucose 256 H 250 H Blood Gas Blood arterial Specimen Source Arterial Blood 05/08/2019 12:23 Date Drawn :53 AM Arterial Blood 7.263 *L pH (Temp corrected ) Arterial Blood 32.1 L pCO2 (Temp correct) Arterial Blood 490.4 H pO2 (Temp corrected ) Arterial Blood 14.2 L HCO3 Arterial Blood -11.7 L Base Excess Arterial Blood 99.6 H Oxygen Saturati on Benedict Test ACCEPTAB Arterial Blood Right Radial Gas Puncture Site Arterial 0.3 Blood Carboxyhe moglobin Arterial Blood 0.4 Methemoglobin Blood Gas A-a 190.5 H O2 Differential Oxyhemoglobin 98.9 Percent Blood Gas 37.0 Temperature Blood Gas 20.0 Respiration Rate Blood Gas 31 Actual Respiration Rat e Blood Gas VENT - AC Modality FiO2 100.0 Blood Gas Tidal 500.0 Volume Blood Gas Low 5.0 PEEP Setting Blood Gas Jace Lanier RN Critical Value Read Back Blood Gas Kerrie Madden [employer] Notified Whom Blood Gas 05/08/2019 12:32 Notified Time :35 AM Lactic Acid 2.1 *H Level Troponin I < 0.012 Test 05/08/19 01:50 05/08/19 02:48 05/08/19 02:54 05/08/19 03:58 Bedside Glucose 246 H 284 H 196 Lactic Acid 2.2 *H Level Test 05/08/19 04:40 05/08/19 05:04 05/08/19 06:08 05/08/19 07:56 White Blood 16.2 #H Count Red Blood Count 4.21 #L Hemoglobin 10.5 L Hematocrit 30.3 #L Mean 72.0 L Corpuscular Volume Mean 24.9 L Corpuscular Hemoglobin Mean 34.7 Corpuscular Hemoglobin Conc ent Red Cell 13.9 Distribution Width Platelet Count 189 # Mean Platelet 10.5 H Volume Immature 1.900 H Granulocytes % Neutrophils % Segmented 25 L Neutrophils % (Manual) Band 48 H Neutrophils % (Manual) Lymphocytes % Lymphocytes % 4 L (Manual) Monocytes % Monocytes % 13 H (Manual) Eosinophils % Basophils % Metamyelocytes 10 H % (manual) Myelocytes % 1 H (Manual) Nucleated Red 0.0 Blood Cells % Immature 0.310 H Granulocytes # Neutrophils # Neutrophils # 5.3 (Manual) Band 7.7 H Neutrophils # Lymphocytes 0.6 L (Manual) Lymphocytes # Monocytes # Monocytes # 2.1 H (Manual) Eosinophils # Basophils # Metamyelocytes 1.6 H # Myelocytes # 0.1 H Nucleated Red Blood Cells # Toxic 1+ Granulation Dohle Bodies 1+ Platelet NORMAL Estimate Platelet @See below Morphology Comment Poikilocytosis 2+ Sodium Level 135 Potassium Level 3.1 L Chloride Level 111 H Carbon Dioxide 16 L Level Anion Gap 8 Blood Urea 22 H Nitrogen Creatinine 0.76 Est Glomerular > 60 Filtrat Rate mL/min Glucose Level 162 Lactic Acid 2.0 Level Calcium Level 9.7 Phosphorus 0.5 L Level Magnesium Level 1.7 Total Bilirubin 0.2 Direct 0.00 Bilirubin Indirect 0.2 Bilirubin Aspartate Amino 58 H Transf (AST/SGO T) Alanine 37 Aminotransferas e (ALT/SGPT) Alkaline 130 H Phosphatase Troponin I 0.017 Total Protein 5.2 #L Albumin 2.1 #L Globulin 3.10 Albumin/Globuli 0.67 n Ratio Bedside Glucose 193 262 H 104 Test 05/08/19 09:00 05/08/19 11:38 Urine Opiates Positive Screen Urine Negative Barbiturates Urine Negative Amphetamines Screen Urine Negative Benzodiazepines Screen Urine Cocaine Negative Screen Urine Negative Cannabinoids Bedside Glucose 253 H Medications Medication Current Medications IV Flush (NS 10 ml) 10 ml PRN PRN IV IV PROTOCOL; Start 05/07/19 at 17:30 Ondansetron HCl (Zofran Inj) 4 mg BRIDGE ORDER PRN IV NAUSEA/VOMITING; Start 05/07/19 at 18:30; Stop 05/08/19 at 18:29 Dextrose (D50w Syringe) 50 ml Q15M PRN IV For BS 50 or less; Start 05/07/19 at 19:30 Dextrose (D50w Syringe) 25 ml Q15M PRN IV BS between 50-70; Start 05/07/19 at 19:30 Miscellaneous Information (* Miscellaneous Pharmacy Order) HYPOGLYCEMIA TREATMENT HYPOGLYCEM PROTOCOL PRN XX Hypoglycemia (BS < 70); Start 05/07/19 at 19:30 Potassium Chloride/Sodium Chloride 1,000 ml @ 0 mls/hr Q0M IV ; Start 05/07/19 at 19:27 Potassium Chloride/Sodium Chloride 1,000 ml @ 0 mls/hr Q0M IV ; Start 05/07/19 at 19:27 Insulin Aspart (Novolog Insulin Pen) NOVOLOG *MODERATE* ALGORI... Q4H SC Last administered on 05/08/19at 11:45; Admin Dose 6 UNIT; Start 05/07/19 at 19:30 Vancomycin HCl (Vanco Iv Per Pharmacy) VANCOMYCIN PER PHARMACY PER PROTOCOL XX ; Start 05/07/19 at 19:30 Piperacillin Sod/ Tazobactam Sod 100 ml @ 200 mls/hr Q8H IVPB Last administered on 05/08/19at 11:39; Admin Dose 200 MLS/HR; Start 05/07/19 at 19:30 Ondansetron HCl (Zofran Inj) 4 mg Q4H PRN IV nausea; Start 05/07/19 at 20:00 Morphine Sulfate (morphine) 4 mg Q4H PRN IV pain; Start 05/07/19 at 20:00 Vancomycin HCl 250 ml @ 125 mls/hr Q12H IVPB Last administered on 05/08/19at 04:10; Admin Dose 125 MLS/HR; Start 05/08/19 at 04:00 Propofol 100 ml @ 1.909 mls/ hr Q12H IV Last administered on 05/08/19 09:31; Admin Dose 15.274 MLS/HR; Start 05/07/19 at 23:45 Miscellaneous Information (* Miscellaneous Pharmacy Order) Treatment of Hypoglycemia: 1.BG 51... Per protocol XX ; Start 05/08/19 at 00:30 Dextrose (D50w Syringe) 25 ml Q15M PRN IV .DECREASED GLUCOSE; Start 05/08/19 at 00:30 Dextrose (D50w Syringe) 50 ml Q15M PRN IV .DECREASED GLUCOSE; Start 05/08/19 at 00:30 Norepinephrine 250 ml @ 1.875 mls/ hr TITRATE IV Last administered on 05/08 03:36; Admin Dose 1.875 MLS/HR; Start 05/08/19 at 01:00 Sodium Chloride 1,000 ml @ 125 mls/hr Q8H IV Last administered on 05/08/19 09:28; Admin Dose 125 MLS/HR; Start 05/08/19 at 01:30 Insulin Human NPH (Humulin N) 8 unit Q12H SC Last administered on 05/08/19 05:17; Admin Dose 8 UNIT; Start 05/08/19 at 05:30 Acetaminophen (Tylenol Liquid) 650 mg Q4H PRN NGT MILD PAIN(1-3)OR ELEVATED TE MP Last administered on 05/08/19at 10:13; Admin Dose 650 MG; Start 05/08/19 at 10:00 Potassium Chloride 50 ml @ 50 mls/hr K PROTOCOL PRN IVPB PENDING LAB VALUE; Start 05/08/19 at 10:00 Potassium Chloride 50 ml @ 50 mls/hr Q1H IVPB Last administered on 05/08/19at 11:39; Admin Dose 50 MLS/HR; Start 05/08/19 at 11:00; Stop 05/08/19 at 13:59 PHONG BRIGGS MD May 08, 2019 12:24
[2019-05-08] MEDS: FAMOTIDINE 20 MG INJ IV SCH ×2 (13:48→20:56)
[2019-05-08] MEDS: COLLAGENASE 5 GM (UD JAR) TOP SCH (22:20)
[2019-05-08] MEDS: DAKINS 0.0125%(1/40) 473 ML SOLUTION TP SCH (22:20)
[2019-05-09] VITALS (70 sets, daily range): BP systolic 95–126; BP diastolic 55–77; PULSE 80–130; RESP 23–35
[2019-05-09] MEDS: SOD CHLORIDE 0.9% 1,000 ML IV SCH ×4 (00:47→20:36)
[2019-05-09] MEDS: INSULIN ASPART [NOVOLOG] 3 ML PEN SC SCH ×6 (04:04→23:54)
[2019-05-09] MEDS: PIPER-TAZO 3.375 GM IV (PMX) 100 ML IVPB SCH ×3 (04:05→19:05)
[2019-05-09] MEDS: PROPOFOL 100 ML IV SCH ×4 (04:11→20:35)
[2019-05-09] MEDS: POTASSIUM CHLORIDE 20 MEQ POWDER FOR ORAL SOLN NGT SCH ×4 (04:49→11:32)
[2019-05-09] MEDS: VANCOMYCIN 1 GM 250 ML IVPB SCH ×2 (04:54→15:34)
[2019-05-09] MEDS: NPH, HUMAN INSULIN ISOPHANE 3ML VIAL SC SCH ×2 (06:09→19:04)
[2019-05-09] MEDS: FAMOTIDINE 20 MG INJ IV SCH ×2 (08:14→20:36)
[2019-05-09] MEDS: COLLAGENASE 5 GM (UD JAR) TOP SCH ×2 (08:14→20:40)
[2019-05-09] MEDS: ACETAMINOPHEN 650MG/20.3ML CUP NGT PRN (08:14)
[2019-05-09] MEDS: DAKINS 0.0125%(1/40) 473 ML SOLUTION TP SCH ×2 (08:15→20:36)
[2019-05-09] MEDS: ENOXAPARIN 40 MG/0.4 ML SYG SC SCH (08:21)
[2019-05-09] MEDS ORDERED: SOD CHLORIDE 0.9% 100 ML ONE (09:20)
[2019-05-09] MEDS ORDERED: IOHEXOL 300MG/ML 150 ML BTL ONE (09:20)
--- NOTE | 2019-05-09 12:43 | PN ---
Date/Time of Note Date/Time of Note DATE: 05/09/19 TIME: 12:41 Assessment/Plan VTE Prophylaxis Risk score (from [facility])>0 risk: 8 SCD applied (from [facility]): No SCD contraindicated: other Pharmacological prophylaxis: LMWH Pharm contraindication: surgical contra Lines/Catheters IV Catheter Type (from [facility]): PICC Line Central line still needed: Yes Urinary Cath still in place: Yes Reason Cath still needed: pres ulcer contaminated by urine Assessment/Plan Assessment/Plan 1. ssepsis, unclear etiology to bacteremia (MSSA) (b0 r/o endocarfditis (c) await ct lumbar for ?spinal abscess 2. DKA, resolved (b0 DM ooc, increase NPH (c) beginb tube feeds 3. IVDA Result Diagram: 05/09/19 0306 05/09/19 0306 Results 24hrs Laboratory Tests Test 05/08/19 15:43 05/08/19 17:09 05/08/19 19:51 05/08/19 23:49 Bedside Glucose 259 H 252 H 275 H 268 H Test 05/09/19 03:06 05/09/19 04:03 05/09/19 06:07 05/09/19 07:28 White Blood Count 18.8 H Red Blood Count 4.33 L Hemoglobin 10.8 L Hematocrit 30.6 L Mean Corpuscular 70.7 L Volume Mean Corpuscular 24.9 L Hemoglobin Mean Corpuscular 35.3 Hemoglobin Concen t Red Cell 14.4 Distribution Width Platelet Count 183 Mean Platelet 10.5 H Volume Immature 1.900 H Granulocytes % Neutrophils % 83.4 H Lymphocytes % 5.0 L Monocytes % 9.0 Eosinophils % 0.1 Basophils % 0.6 Nucleated Red 0.0 Blood Cells % Immature 0.360 H Granulocytes # Neutrophils # 15.7 H Lymphocytes # 0.9 Monocytes # 1.7 H Eosinophils # 0.0 Basophils # 0.1 Nucleated Red 0.0 Blood Cells # Sodium Level 150 #H Potassium Level 2.1 *L Chloride Level 125 H Carbon Dioxide 15 L Level Anion Gap 10 Blood Urea 18 Nitrogen Creatinine 0.85 Est Glomerular > 60 Filtrat Rate mL/min Glucose Level 306 H Calcium Level 11.0 H Vancomycin Level 16.6 Trough Bedside Glucose 351 H 290 H 279 H Test 05/09/19 09:00 05/09/19 11:30 Blood Gas Blood arterial Specimen Source Arterial Blood 05/09/2019 8:35:0 Date Drawn 0 AM Arterial Blood pH 7.375 (Temp corrected) Arterial Blood 24.9 L pCO2 (Temp correct) Arterial Blood 111.4 H pO2 (Temp corrected) Arterial Blood 14.2 L HCO3 Arterial Blood -9.7 L Base Excess Arterial Blood 97.8 Oxygen Saturation Benedict Test ACCEPTAB Arterial Blood Right Radial Gas Puncture Site Arterial 0.3 Blood Carboxyhemo globin Arterial Blood 0.5 Methemoglobin Blood Gas A-a O2 73.2 H Differential Oxyhemoglobin 97.0 Percent Blood Gas 37.0 Temperature Blood Gas 20.0 Respiration Rate Blood Gas Actual 33 Respiration Rate Blood Gas VENT - AC Modality FiO2 30.0 Blood Gas Tidal 500.0 Volume Blood Gas Low 5.0 PEEP Setting Blood Gas DT Notified Whom Blood Gas 05/09/2019 8:54:0 Notified Time 0 AM Bedside Glucose 251 H Subjective 24 Hr Interval Summary Free Text/Dictation intubated sedated Exam/Review of Systems Exam Vitals Vital Signs Date Temp Pulse Resp B/P (MAP) Pulse Ox O2 O2 Flow FiO2 Time Delivery Rate 05/09/19 114 12:00 05/09/19 98.2 34 106/77 100 Mechanical 12:00 (87) Ventilator 05/09/19 30 11:34 05/07/19 2.0 20:40 Intake and Output 05/08/19 05/08/19 05/09/19 1515:00 23:00 07:00 IntakeIntake Total 1484.319 ml 1596.754 ml 1487.464 ml OutputOutput Total 1450 ml 3450 ml 1925 ml BalanceBalance 34.319 ml -1853.246 ml -437.536 ml Exam nad, ctab, rrr, soft nt Results Results 24hrs Laboratory Tests Test 05/08/19 15:43 05/08/19 17:09 05/08/19 19:51 05/08/19 23:49 Bedside Glucose 259 H 252 H 275 H 268 H Test 05/09/19 03:06 05/09/19 04:03 05/09/19 06:07 05/09/19 07:28 White Blood Count 18.8 H Red Blood Count 4.33 L Hemoglobin 10.8 L Hematocrit 30.6 L Mean Corpuscular 70.7 L Volume Mean Corpuscular 24.9 L Hemoglobin Mean Corpuscular 35.3 Hemoglobin Concen t Red Cell 14.4 Distribution Width Platelet Count 183 Mean Platelet 10.5 H Volume Immature 1.900 H Granulocytes % Neutrophils % 83.4 H Lymphocytes % 5.0 L Monocytes % 9.0 Eosinophils % 0.1 Basophils % 0.6 Nucleated Red 0.0 Blood Cells % Immature 0.360 H Granulocytes # Neutrophils # 15.7 H Lymphocytes # 0.9 Monocytes # 1.7 H Eosinophils # 0.0 Basophils # 0.1 Nucleated Red 0.0 Blood Cells # Sodium Level 150 #H Potassium Level 2.1 *L Chloride Level 125 H Carbon Dioxide 15 L Level Anion Gap 10 Blood Urea 18 Nitrogen Creatinine 0.85 Est Glomerular > 60 Filtrat Rate mL/min Glucose Level 306 H Calcium Level 11.0 H Vancomycin Level 16.6 Trough Bedside Glucose 351 H 290 H 279 H Test 05/09/19 09:00 05/09/19 11:30 Blood Gas Blood arterial Specimen Source Arterial Blood 05/09/2019 8:35:0 Date Drawn 0 AM Arterial Blood pH 7.375 (Temp corrected) Arterial Blood 24.9 L pCO2 (Temp correct) Arterial Blood 111.4 H pO2 (Temp corrected) Arterial Blood 14.2 L HCO3 Arterial Blood -9.7 L Base Excess Arterial Blood 97.8 Oxygen Saturation Benedict Test ACCEPTAB Arterial Blood Right Radial Gas Puncture Site Arterial 0.3 Blood Carboxyhemo globin Arterial Blood 0.5 Methemoglobin Blood Gas A-a O2 73.2 H Differential Oxyhemoglobin 97.0 Percent Blood Gas 37.0 Temperature Blood Gas 20.0 Respiration Rate Blood Gas Actual 33 Respiration Rate Blood Gas VENT - AC Modality FiO2 30.0 Blood Gas Tidal 500.0 Volume Blood Gas Low 5.0 PEEP Setting Blood Gas DT Notified Whom Blood Gas 05/09/2019 8:54:0 Notified Time 0 AM Bedside Glucose 251 H Medications Medication Current Medications IV Flush (NS 10 ml) 10 ml PRN PRN IV IV PROTOCOL; Start 05/07/19 at 17:30 Dextrose (D50w Syringe) 50 ml Q15M PRN IV For BS 50 or less; Start 05/07/19 at 19:30 Dextrose (D50w Syringe) 25 ml Q15M PRN IV BS between 50-70; Start 05/07/19 at 19:30 Miscellaneous Information (* Miscellaneous Pharmacy Order) HYPOGLYCEMIA TREATMENT HYPOGLYCEM PROTOCOL PRN XX Hypoglycemia (BS < 70); Start 05/07/19 at 19:30 Potassium Chloride/Sodium Chloride 1,000 ml @ 0 mls/hr Q0M IV ; Start 05/07/19 at 19:27 Potassium Chloride/Sodium Chloride 1,000 ml @ 0 mls/hr Q0M IV ; Start 05/07/19 at 19:27 Insulin Aspart (Novolog Insulin Pen) NOVOLOG *MODERATE* ALGORI... Q4H SC Last administered on 05/09/19at 11:33; Admin Dose 6 UNIT; Start 05/07/19 at 19:30 Vancomycin HCl (Vanco Iv Per Pharmacy) VANCOMYCIN PER PHARMACY PER PROTOCOL XX ; Start 05/07/19 at 19:30 Piperacillin Sod/ Tazobactam Sod 100 ml @ 200 mls/hr Q8H IVPB Last administered on 05/09/19at 11:32; Admin Dose 200 MLS/HR; Start 05/07/19 at 19:30 Ondansetron HCl (Zofran Inj) 4 mg Q4H PRN IV nausea; Start 05/07/19 at 20:00 Morphine Sulfate (morphine) 4 mg Q4H PRN IV pain; Start 05/07/19 at 20:00 Vancomycin HCl 250 ml @ 125 mls/hr Q12H IVPB Last administered on 05/09/19at 04:54; Admin Dose 125 MLS/HR; Start 05/08/19 at 04:00 Propofol 100 ml @ 1.909 mls/ hr Q12H IV Last administered on 05/09/19at 09:03; Admin Dose 17.183 MLS/HR; Start 05/07/19 at 23:45 Miscellaneous Information (* Miscellaneous Pharmacy Order) Treatment of Hypoglycemia: 1.BG 51... Per protocol XX ; Start 05/08/19 at 00:30 Dextrose (D50w Syringe) 25 ml Q15M PRN IV .DECREASED GLUCOSE; Start 05/08/19 at 00:30 Dextrose (D50w Syringe) 50 ml Q15M PRN IV .DECREASED GLUCOSE; Start 05/08/19 at 00:30 Norepinephrine 250 ml @ 1.875 mls/ hr TITRATE IV Last administered on 05/08/19at 22:27; Admin Dose 11.25 MLS/HR; Start 05/08/19 at 01:00 Sodium Chloride 1,000 ml @ 125 mls/hr Q8H IV Last administered on 05/09/19 09:03; Admin Dose 125 MLS/HR; Start 05/08/19 at 01:30 Insulin Human NPH (Humulin N) 8 unit Q12H SC Last administered on 05/09/19 06:09; Admin Dose 8 UNIT; Start 05/08/19 at 05:30 Acetaminophen (Tylenol Liquid) 650 mg Q4H PRN NGT MILD PAIN(1-3)OR ELEVATED TEMP Last administered on 05/09/19 08:14; Admin Dose 650 MG; Start 05/08/19 at 10:00 Potassium Chloride 50 ml @ 50 mls/hr K PROTOCOL PRN IVPB PENDING LAB VALUE; Start 05/08/19 at 10:00 Famotidine (Pepcid Iv) 20 mg BID IV Last administered on 05/09/19 08:14; Admin Dose 20 MG; Start 05/08/19 at 12:30 Enoxaparin Sodium (Lovenox) 40 mg DAILY SC Last administered on 05/09/19 08:21; Admin Dose 40 MG; Start 05/09/19 at 09:00 Collagenase (Santyl) 1 applic BID TOP Last administered on 05/09/19 08:14; Admin Dose 1 APPLIC; Start 05/08/19 at 21:00 Sodium Hypochlorite (Dakins Diluted (1/40)) 1 applic BID TP Last administered on 05/09/19 08:15; Admin Dose 1 APPLIC; Start 05/08/19 at 21:00 PHONG BRIGGS MD May 09, 2019 12:43
--- NOTE | 2019-05-09 15:18 | RADRPT ---
Echocardiogram Report Patient Name: ELÍAS SOLISPatient ID: [id number] : 1970 (49y 1m)Study Date: 05/08/2019 11:31:09 AM Gender: Keniacession #: [id number] Tech: LE Location: [facility] Ref.Physician: PHONG BRIGGS Height(Cm): BSA: Weight(Kg): Quality: GoodOrder Physician: PHONG BRIGGS Account #: Procedures: Echocardiographic Report: Transthoracic echocardiogram with complete 2D, M-Mode, and doppler examination. Indications: Endocarditis. Measurements: 2D/M Mode Doppler Measurement Value Normal Range Measurement Value Normal Range LVIDd 2D 4.6 [ 4.2 - 5.8 ] cm AV Mean Gera 0.9 [ 70.0 - 90.0 ] cm/sec LVIDs 2D 3.1 [ 2.5 - 4.0 ] cm AV Mean PG 3.0 [ 2.0 - 4.0 ] mmHg LVPWd 2D 1.1 [ 0.6 - 1.0 ] cm AV Peak Gera 1.2 [ 100.0 - 170.0 ] cm/sec IVSd 2D 1.1 [ 0.6 - 1.0 ] cm AV Peak PG 6.0 [ 2.0 - 9.0 ] mmHg EDV 2D 96.3 [ 62.0 - 150.0 ] ml AV VTI 12.9 cm ESV 2D 38.8 [ 21.0 - 61.0 ] ml LVOT Peak Gera 1.0 [ 70.0 - 110.0 ] cm/sec EF 2D 59.7 [ 52.0 - 72.0 ] percent LVOT Peak PG 4.0 [ 2.0 - 6.0 ] mmHg LVOT Diam 2.0 [ 2.3 - 2.9 ] cm MV E Peak Gera 0.6 [ 60.0 - 130.0 ] cm/sec MV A Peak Gera 1.0 [ 100.0 - 120.0 ] cm/sec MV E/A 0.6 [ 0.8 - 1.5 ] ratio MV Decel Time 243 [ 104 - 258 ] msec Lat E` Gera 0.1 [ 10.0 - 15.0 ] cm/sec Lateral E/E` 4.6 [ 1.0 - 2.0 ] ratio Med E` Gera 0.1 cm/sec MV E/A 0.6 [ 0.8 - 1.5 ] ratio TR Peak Gera 2.3 [ 100.0 - 280.0 ] cm/sec TR Peak PG 22.0 mmHg PV Peak Gera 0.7 [ 40.0 - 80.0 ] cm/sec PV Peak PG 2.0 mmHg Findings: Left Ventricle: Normal left ventricular systolic function. Normal left ventricular cavity size. Normal left ventricular wall thickness. Ejection fraction is visually estimated at 55-60 %. Abnormal Diastolic Function. Right Ventricle: Normal right ventricular size. Normal right ventricular systolic function. Left Atrium: The left atrium is normal in size. Right Atrium: The right atrium is normal in size. Mitral Valve: Mitral valve leaflets appear mildly thickened. Trace mitral regurgitation. Aortic Valve: No significant aortic stenosis or insufficiency. Aortic cusps appear mildly calcified. Tricuspid Valve: Tricuspid valve not well visualized. The estimated Peak RVSP is 30 mmHg. There is trace tricuspid regurgitation. Pulmonic Valve: Pulmonic valve not well visualized. Pericardium: Normal pericardium with no significant pericardial effusion. Aorta: Normal aortic root. IVC: Normal size and no respiratory collapse consistent with elevated right atrial pressure. Conclusions: Normal left ventricular systolic function. Normal left ventricular cavity size. Normal left ventricular wall thickness. Ejection fraction is visually estimated at 55-60 %. Abnormal Diastolic Function. Normal right ventricular size. Normal right ventricular systolic function. The left atrium is normal in size. The right atrium is normal in size. Mitral valve leaflets appear mildly thickened. Trace mitral regurgitation. No significant aortic stenosis or insufficiency. Aortic cusps appear mildly calcified. Tricuspid valve not well visualized. The estimated Peak RVSP is 30 mmHg. There is trace tricuspid regurgitation. Normal pericardium with no significant pericardial effusion. Electronically Signed By: Steven Masterson 2019-05-09 15:18:10 PDT
--- NOTE | 2019-05-09 15:24 | CONS ---
Assessment/Plan Assessment/Plan Hospital Course (Demo Recall) Respiratory failure DKA Sepsis Staph aureus bacteremia History of IV drug use Patient with history of intravenous drug use, presents with DKA, staph aureus bacteremia and respiratory failure status post intubation Would review echocardiogram Antibiotics as per infectious disease Consultation Date/Type/Reason Admit Date/Time May 07, 2019 at 18:29 Type of Consult Cardiology Reason for Consultation Cardiology evaluation Date/Time of Note DATE: 05/09/19 TIME: 15:19 Hx of Present Illness This is a 49-year-old male with past medical history of intravenous drug use, diabetes who presents with altered mental status. Patient was admitted with DKA, given worsening respiratory status was intubated. In discussion with daughter, patient with known history of IV heroin use. 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 Patient with known poor compliance with medications. Patient positive blood cultures and consideration for endocarditis. 12 point review of systems was performed with all pertinent positives and negatives mentioned above and all else is negative Past Medical History Medical History: diabetes Home Meds Unable to Obtain Active Prescriptions or Reported Meds Medications Current Medications IV Flush (NS 10 ml) 10 ml PRN PRN IV IV PROTOCOL; Start 05/07/19 at 17:30 Dextrose (D50w Syringe) 50 ml Q15M PRN IV For BS 50 or less; Start 05/07/19 at 19:30 Dextrose (D50w Syringe) 25 ml Q15M PRN IV BS between 50-70; Start 05/07/19 at 19:30 Miscellaneous Information (* Miscellaneous Pharmacy Order) HYPOGLYCEMIA TREATMENT HYPOGLYCEM PROTOCOL PRN XX Hypoglycemia (BS < 70); Start 05/07/19 at 19:30 Potassium Chloride/Sodium Chloride 1,000 ml @ 0 mls/hr Q0M IV ; Start 05/07/19 at 19:27 Potassium Chloride/Sodium Chloride 1,000 ml @ 0 mls/hr Q0M IV ; Start 05/07/19 at 19:27 Insulin Aspart (Novolog Insulin Pen) NOVOLOG *MODERATE* ALGORI... Q4H SC Last administered on 05/09/19at 11:33; Admin Dose 6 UNIT; Start 05/07/19 at 19:30 Vancomycin HCl (Vanco Iv Per Pharmacy) VANCOMYCIN PER PHARMACY PER PROTOCOL XX ; Start 05/07/19 at 19:30 Piperacillin Sod/ Tazobactam Sod 100 ml @ 200 mls/hr Q8H IVPB Last administered on 05/09/19 11:32; Admin Dose 200 MLS/HR; Start 05/07/19 at 19:30 Ondansetron HCl (Zofran Inj) 4 mg Q4H PRN IV nausea; Start 05/07/19 at 20:00 Morphine Sulfate (morphine) 4 mg Q4H PRN IV pain; Start 05/07/19 at 20:00 Vancomycin HCl 250 ml @ 125 mls/hr Q12H IVPB Last administered on 05/09/19at 04:54; Admin Dose 125 MLS/HR; Start 05/08/19 at 04:00 Propofol 100 ml @ 1.909 mls/ hr Q12H IV Last administered on 05/09/19 09:03; Admin Dose 17.183 MLS/HR; Start 05/07/19 at 23:45 Miscellaneous Information (* Miscellaneous Pharmacy Order) Treatment of Hypoglycemia: 1.BG 51... Per protocol XX ; Start 05/08/19 at 00:30 Dextrose (D50w Syringe) 25 ml Q15M PRN IV .DECREASED GLUCOSE; Start 05/08/19 at 00:30 Dextrose (D50w Syringe) 50 ml Q15M PRN IV .DECREASED GLUCOSE; Start 05/08/19 at 00:30 Norepinephrine 250 ml @ 1.875 mls/ hr TITRATE IV Last administered on 05/08/19 22:27; Admin Dose 11.25 MLS/HR; Start 05/08/19 at 01:00 Sodium Chloride 1,000 ml @ 125 mls/hr Q8H IV Last administered on 05/09/19at 09:03; Admin Dose 125 MLS/HR; Start 05/08/19 at 01:30 Acetaminophen (Tylenol Liquid) 650 mg Q4H PRN NGT MILD PAIN(1-3)OR ELEVATED TEMP Last administered on 05/09/19 08:14; Admin Dose 650 MG; Start 05/08/19 at 10:00 Potassium Chloride 50 ml @ 50 mls/hr K PROTOCOL PRN IVPB PENDING LAB VALUE; Start 05/08/19 at 10:00 Famotidine (Pepcid Iv) 20 mg BID IV Last administered on 05/09/19 08:14; Admin Dose 20 MG; Start 05/08/19 at 12:30 Enoxaparin Sodium (Lovenox) 40 mg DAILY SC Last administered on 05/09/19at 08:21; Admin Dose 40 MG; Start 05/09/19 at 09:00 Collagenase (Santyl) 1 applic BID TOP Last administered on 05/09/19at 08:14; Admin Dose 1 APPLIC; Start 05/08/19 at 21:00 Sodium Hypochlorite (Dakins Diluted (40)) 1 applic BID TP Last administered on 05/09/19at 08:15; Admin Dose 1 APPLIC; Start 05/08/19 at 21:00 Insulin Human NPH (Humulin N) 12 unit Q12H SC ; Start 05/09/19 at 17:30 Allergies: Coded Allergies: No Known Allergy (Unverified , 05/07/19) Past Surgical History Past Surgical Hx: other (Amputation) Family History Significant Family History: no pertinent family hx Social History Smoking Status: Unknown if ever smoked Drug Use: heroin Exam/Review of Systems Vital Signs Vitals Vital Signs Date Temp Pulse Resp B/P (MAP) Pulse Ox O2 O2 Flow FiO2 Time Delivery Rate 05/09/19 116 34 120/75 100 13:30 (90) 05/09/19 30 13:04 05/09/19 Mechanical 13:00 Ventilator 05/09/19 98.2 12:00 05/07/19 2.0 20:40 Intake and Output 05/08/19 05/08/19 05/09/19 1515:00 23:00 07:00 IntakeIntake Total 1484.319 ml 1596.754 ml 1487.464 ml OutputOutput Total 1450 ml 3450 ml 1925 ml BalanceBalance 34.319 ml -1853.246 ml -437.536 ml Exam Exam Intubated and sedated, no apparent distress, daughter at bedside Head: normocephalic ENMT: intubated Respiratory: other (Coarse breath sounds bilaterally, no wheezing) Cardiovascular: regular rate and rhythm (S1-S2 heard) Gastrointestinal: soft, bowel sounds, other (No grimacing with palpation) Extremities: other (No significant edema, left upper arm amputation) Labs Result Diagram: 05/09/19 0306 05/09/19 0306 Results 24hrs Laboratory Tests Test 05/08/19 15:43 7/13/19 17:09 05/08/19 19:51 05/08/19 23:49 Bedside Glucose 259 H 252 H 275 H 268 H Test 05/09/19 03:06 05/09/19 04:03 05/09/19 06:07 05/09/19 07:28 White Blood Count 18.8 H Red Blood Count 4.33 L Hemoglobin 10.8 L Hematocrit 30.6 L Mean Corpuscular 70.7 L Volume Mean Corpuscular 24.9 L Hemoglobin Mean Corpuscular 35.3 Hemoglobin Concen t Red Cell 14.4 Distribution Width Platelet Count 183 Mean Platelet 10.5 H Volume Immature 1.900 H Granulocytes % Neutrophils % 83.4 H Lymphocytes % 5.0 L Monocytes % 9.0 Eosinophils % 0.1 Basophils % 0.6 Nucleated Red 0.0 Blood Cells % Immature 0.360 H Granulocytes # Neutrophils # 15.7 H Lymphocytes # 0.9 Monocytes # 1.7 H Eosinophils # 0.0 Basophils # 0.1 Nucleated Red 0.0 Blood Cells # Sodium Level 150 #H Potassium Level 2.1 *L Chloride Level 125 H Carbon Dioxide 15 L Level Anion Gap 10 Blood Urea 18 Nitrogen Creatinine 0.85 Est Glomerular > 60 Filtrat Rate mL/min Glucose Level 306 H Calcium Level 11.0 H Vancomycin Level 16.6 Trough Bedside Glucose 351 H 290 H 279 H Test 05/09/19 09:00 05/09/19 11:30 Blood Gas Blood arterial Specimen Source Arterial Blood 05/09/2019 8:35:0 Date Drawn 0 AM Arterial Blood pH 7.375 (Temp corrected) Arterial Blood 24.9 L pCO2 (Temp correct) Arterial Blood 111.4 H pO2 (Temp corrected) Arterial Blood 14.2 L HCO3 Arterial Blood -9.7 L Base Excess Arterial Blood 97.8 Oxygen Saturation Benedict Test ACCEPTAB Arterial Blood Right Radial Gas Puncture Site Arterial 0.3 Blood Carboxyhemo globin Arterial Blood 0.5 Methemoglobin Blood Gas A-a O2 73.2 H Differential Oxyhemoglobin 97.0 Percent Blood Gas 37.0 Temperature Blood Gas 20.0 Respiration Rate Blood Gas Actual 33 Respiration Rate Blood Gas VENT - AC Modality FiO2 30.0 Blood Gas Tidal 500.0 Volume Blood Gas Low 5.0 PEEP Setting Blood Gas DT Notified Whom Blood Gas 05/09/2019 8:54:0 Notified Time 0 AM Bedside Glucose 251 H Medications Medications Current Medications IV Flush (NS 10 ml) 10 ml PRN PRN IV IV PROTOCOL; Start 05/07/19 at 17:30 Dextrose (D50w Syringe) 50 ml Q15M PRN IV For BS 50 or less; Start 05/07/19 at 19:30 Dextrose (D50w Syringe) 25 ml Q15M PRN IV BS between 50-70; Start 05/07/19 at 19:30 Miscellaneous Information (* Miscellaneous Pharmacy Order) HYPOGLYCEMIA TREATMENT HYPOGLYCEM PROTOCOL PRN XX Hypoglycemia (BS < 70); Start 05/07/19 at 19:30 Potassium Chloride/Sodium Chloride 1,000 ml @ 0 mls/hr Q0M IV ; Start 05/07/19 at 19:27 Potassium Chloride/Sodium Chloride 1,000 ml @ 0 mls/hr Q0M IV ; Start 05/07/19 at 19:27 Insulin Aspart (Novolog Insulin Pen) NOVOLOG *MODERATE* ALGORI... Q4H SC Last administered on 05/09/19at 11:33; Admin Dose 6 UNIT; Start 05/07/19 at 19:30 Vancomycin HCl (Vanco Iv Per Pharmacy) VANCOMYCIN PER PHARMACY PER PROTOCOL XX ; Start 05/07/19 at 19:30 Piperacillin Sod/ Tazobactam Sod 100 ml @ 200 mls/hr Q8H IVPB Last administered on 05/09/19at 11:32; Admin Dose 200 MLS/HR; Start 05/07/19 at 19:30 Ondansetron HCl (Zofran Inj) 4 mg Q4H PRN IV nausea; Start 05/07/19 at 20:00 Morphine Sulfate (morphine) 4 mg Q4H PRN IV pain; Start 05/07/19 at 20:00 Vancomycin HCl 250 ml @ 125 mls/hr Q12H IVPB Last administered on 05/09/19at 04:54; Admin Dose 125 MLS/HR; Start 05/08/19 at 04:00 Propofol 100 ml @ 1.909 mls/ hr Q12H IV Last administered on 05/09/19at 09:03; Admin Dose 17.183 MLS/HR; Start 05/07/19 at 23:45 Miscellaneous Information (* Miscellaneous Pharmacy Order) Treatment of Hypoglycemia: 1.BG 51... Per protocol XX ; Start 05/08/19 at 00:30 Dextrose (D50w Syringe) 25 ml Q15M PRN IV .DECREASED GLUCOSE; Start 05/08/19 at 00:30 Dextrose (D50w Syringe) 50 ml Q15M PRN IV .DECREASED GLUCOSE; Start 05/08/19 at 00:30 Norepinephrine 250 ml @ 1.875 mls/ hr TITRATE IV Last administered on 05/08/19at 22:27; Admin Dose 11.25 MLS/HR; Start 05/08/19 at 01:00 Sodium Chloride 1,000 ml @ 125 mls/hr Q8H IV Last administered on 05/09/19 09:03; Admin Dose 125 MLS/HR; Start 05/08/19 at 01:30 Acetaminophen (Tylenol Liquid) 650 mg Q4H PRN NGT MILD PAIN(1-3)OR ELEVATED TEMP Last administered on 05/09/19 08:14; Admin Dose 650 MG; Start 05/08/19 at 10:00 Potassium Chloride 50 ml @ 50 mls/hr K PROTOCOL PRN IVPB PENDING LAB VALUE; Start 05/08/19 at 10:00 Famotidine (Pepcid Iv) 20 mg BID IV Last administered on 05/09/19 08:14; Admin Dose 20 MG; Start 05/08/19 at 12:30 Enoxaparin Sodium (Lovenox) 40 mg DAILY SC Last administered on 05/09/19 08:21; Admin Dose 40 MG; Start 05/09/19 at 09:00 Collagenase (Santyl) 1 applic BID TOP Last administered on 05/09/19 08:14; Admin Dose 1 APPLIC; Start 05/08/19 at 21:00 Sodium Hypochlorite (Dakins Diluted (1/40)) 1 applic BID TP Last administered on 05/09/19 08:15; Admin Dose 1 APPLIC; Start 05/08/19 at 21:00 Insulin Human NPH (Humulin N) 12 unit Q12H SC ; Start 05/09/19 at 17:30 Steven Masterson DO May 09, 2019 15:24
--- NOTE | 2019-05-09 16:22 | CONS ---
DATE OF ADMISSION: 05/07/2019 DATE OF CONSULTATION: 05/09/2019 TYPE OF CONSULTATION: Pulmonary consult. REFERRING PHYSICIAN: Dr. Jey Cote. REASON FOR CONSULTATION: Septic shock and acute respiratory failure. HISTORY OF PRESENT ILLNESS: This is a 49-year-old male with a history of IV drug abuse who was found altered at home and subsequently brought to the emergency room, required immediate intubation and me chanical ventilation. The patient was found to be in acute diabetic ketoacidosis, which was treated appropriately. Subsequently, his blood cultures were found to be positive for Staph aureus. CT scan of the chest showed multiple cavitary nodules bilaterally. The patient is now off of insulin drip. The patient remains in septic shock requiring vasopressors for blood pressure support. Currently, t he patient is orally intubated and sedated and there is no further history available at this time. REVIEW OF SYSTEMS: Unable to obtain. PAST MEDICAL HISTORY: History of diabetes mellitus, history of IV drug abuse, history of left below elbow amputation. ALLERGIES: NONE KNOWN TO ME. SOCIAL HABITS: History of drug abuse and lives at home in [facility]. FAMILY HISTORY: Not available at this time. PHYSICAL EXAMINATION: VITAL SIGNS: Blood pressure 106/77 on pressors, heart rate 113, respirations 34, temperature 98.2. HEENT: Pupils are equal and reactive to light, orally intubated. NECK: Supple, no JVD noted, no cervical adenopathy noted. LUNGS: Fair breath sounds bilaterally. CARDIOVASCULAR: S1, S2 normal. ABDOMEN: Soft, nontender. No megaly or masses noted. EXTREMITIES: No clubbing, cyanosis, or edema noted. Left below-knee amputation noted. NEUROLOGICAL: Currently sedated on the vent. LABORATORIES: Sodium 150, potassium 2.1, chloride 125, CO2 15, BUN 18, creatinine 0.85, glucose 306. WBC 18.8, hemoglobin 10.8, hematocrit 30.6, platelets 183. ABG shows pH of 7.37, pCO2 of 25, pO2 1 11. Blood cultures are positive for Staph aureus. IMAGING: Chest x-ray shows just increased interstitial marking and basilar atelectasis. CT scan of the chest shows multiple cavitary nodules. IMPRESSION: 1. Acute respiratory failure, hypoxemic. 2. Status post diabetic ketoacidosis. 3. Staphylococcus aureus bacteremia. 4. Septic shock. 5. Rule out endocarditis. 6. Cavitary nodules consistent with septic emboli. 7. History of diabetes mellitus. 8. Severe hypokalemia. RECOMMENDATIONS: 1. Continue ventilator support for now. 2. Continue pressors as necessary. 3. Continue antibiotics. 4. Await lumbar spine studies. 5. Consider echocardiogram to rule out vegetation. 6. Followup labs and x-ray. Dictated By: LALO BENSON MD, MA/LINA Conf#: [id number] DID#: [id number] CC: JEY COTE MD;*EndCC*
[2019-05-09] MEDS ORDERED: NPH, HUMAN INSULIN ISOPHANE 3ML VIAL SC SCH (17:30)
[2019-05-10] VITALS (54 sets, daily range): BP systolic 119–152; BP diastolic 69–100; PULSE 69–120; RESP 17–35
[2019-05-10] MEDS: PROPOFOL 100 ML IV SCH ×4 (03:22→22:47)
[2019-05-10] MEDS: PIPER-TAZO 3.375 GM IV (PMX) 100 ML IVPB SCH (03:47)
[2019-05-10] MEDS: INSULIN ASPART [NOVOLOG] 3 ML PEN SC SCH ×2 (03:52→08:49)
[2019-05-10] MEDS: VANCOMYCIN 1 GM 250 ML IVPB SCH (04:58)
[2019-05-10] MEDS: FAMOTIDINE 20 MG INJ IV SCH ×2 (08:41→21:00)
[2019-05-10] MEDS: ENOXAPARIN 40 MG/0.4 ML SYG SC SCH (08:46)
[2019-05-10] MEDS: NPH, HUMAN INSULIN ISOPHANE 3ML VIAL SC SCH (08:54)
[2019-05-10] MEDS: SOD CHLORIDE 0.9% 1,000 ML IV SCH ×2 (09:24→22:54)
--- NOTE | 2019-05-10 09:53 | CONS ---
Assessment/Plan Assessment/Plan Assessment/Plan (Daily) Ventilator setting; assist control of 20, tidal volume 500, PEEP of 5, 30% FiO2. Patient is currently on propofol at 45 mics per kilogram per minute. Assessment and recommendations; 1. Patient admitted with DKA leading to respiratory failure requiring intubation. 2. Active intravenous drug use. 3. Staph aureus bacteremia. 4. 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 5. Possible endocarditis with septic embolism to lungs. 6. Possibly some element of opiate withdrawal. Continue current supportive care. Add fentanyl drip. Continue current antimicrobial regimen. Patient scheduled for transesophageal echocardiogram around noon time today. I did have a detailed discussion with patient's mother as well as patient's sister at bedside and answered all their questions. 35 minutes of critical care time was spent evaluating patient. Consultation Date/Type/Reason Admit Date/Time May 07, 2019 at 18:29 Initial Consult Date Type of Consult Pulmonary/critical care Patient's condition is critical. Patient appearing tachypneic. Otherwise has remained hemodynamically stable. General exam; young male, orally intubated, sedated. Tachypneic. Reason for Consultation H EENT exam; supple neck, no JVD. No lymphadenopathy. Midline trachea. No thyromegaly. Orally intubated. Pupils are small bilaterally. Chest exam; diminished breath sounds bilaterally. S1-S2 audible, no murmurs. Regular rhythm. Abdomen exam; soft, nondistended. No organomegaly. Bowel sounds are audible. Umbilicus is inverted. Extremity exam; no peripheral edema. There is left arm amputation below elbow. Stump is well-healed. LEGAL WRITING PROFESSOR exam; patient is sedated. Date/Time of Note DATE: 05/10/19 TIME: 09:49 Exam/Review of Systems Exam Vitals Vital Signs Date Temp Pulse Resp B/P (MAP) Pulse Ox O2 O2 Flow FiO2 Time Delivery Rate 05/10/19 79 29 125/71 100 Mechanical 06:00 (89) Ventilator 05/10/19 30 05:43 05/10/19 97.9 04:00 05/07/19 2.0 20:40 Intake and Output 05/09/19 05/09/19 05/10/19 1515:00 23:00 07:00 IntakeIntake Total 1437.411 ml 1482.011 ml 880.281 ml OutputOutput Total 1275 ml 725 ml 750 ml BalanceBalance 162.411 ml 757.011 ml 130.281 ml Results Result Diagram: 05/10/19 0415 05/10/19 0415 Results 24hrs Laboratory Tests Test 05/09/19 11:30 05/09/19 15:33 05/09/19 19:02 05/09/19 23:49 Bedside Glucose 251 H 259 H 294 H 268 H Test 05/10/19 03:47 05/10/19 04:15 05/10/19 08:45 Bedside Glucose 289 H 303 H White Blood Count 17.4 H Red Blood Count 3.71 L Hemoglobin 9.2 L Hematocrit 26.4 L Mean Corpuscular 71.2 L Volume Mean Corpuscular 24.8 L Hemoglobin Mean Corpuscular 34.8 Hemoglobin Concent Red Cell 14.9 H Distribution Width Platelet Count 203 Mean Platelet Volume 11.4 H Immature 2.900 H Granulocytes % Neutrophils % 75.5 Segmented 29 L Neutrophils % (Manual) Band Neutrophils % 51 H (Manual) Lymphocytes % 12.0 L Lymphocytes % 5 L (Manual) Monocytes % 9.2 Monocytes % (Manual) 12 H Eosinophils % 0.2 Basophils % 0.2 Metamyelocytes % 1 H (manual) Myelocytes % 1 H (Manual) Promyelocytes % 1 H (Manual) Nucleated Red Blood 0.0 Cells % Immature 0.510 H Granulocytes # Neutrophils # 13.1 H Neutrophils # 6.6 (Manual) Band Neutrophils # 8.8 H Lymphocytes (Manual) 0.8 Lymphocytes # 2.1 Monocytes # 1.6 H Monocytes # (Manual) 2.0 H Eosinophils # 0.0 Basophils # 0.0 Metamyelocytes # 0.1 H Myelocytes # 0.1 H Promyelocytes # 0.1 H Nucleated Red Blood 0.0 Cells # Toxic Granulation 1+ Platelet Estimate NORMAL Poikilocytosis 2+ Anisocytosis 1+ Microcytosis 1+ Sodium Level 153 H Potassium Level 3.7 Chloride Level 129 H Carbon Dioxide Level 18 L Anion Gap 6 Blood Urea Nitrogen 24 H Creatinine 0.79 Est Glomerular > 60 Filtrat Rate mL/min Glucose Level 289 H Calcium Level 9.6 Medications Medication Current Medications IV Flush (NS 10 ml) 10 ml PRN PRN IV IV PROTOCOL; Start 05/07/19 at 17:30 Dextrose (D50w Syringe) 50 ml Q15M PRN IV For BS 50 or less; Start 05/07/19 at 19:30 Dextrose (D50w Syringe) 25 ml Q15M PRN IV BS between 50-70; Start 05/07/19 at 19:30 Miscellaneous Information (* Miscellaneous Pharmacy Order) HYPOGLYCEMIA TREATMENT HYPOGLYCEM PROTOCOL PRN XX Hypoglycemia (BS < 70); Start 05/07/19 at 19:30 Potassium Chloride/Sodium Chloride 1,000 ml @ 0 mls/hr Q0M IV ; Start 05/07/19 at 19:27 Potassium Chloride/Sodium Chloride 1,000 ml @ 0 mls/hr Q0M IV ; Start 05/07/19 at 19:27 Insulin Aspart (Novolog Insulin Pen) NOVOLOG *MODERATE* ALGORI... Q4H SC Last administered on 05/10/19at 08:49; Admin Dose 10 UNIT; Start 05/07/19 at 19:30 Vancomycin HCl (Vanco Iv Per Pharmacy) VANCOMYCIN PER PHARMACY PER PROTOCOL XX ; Start 05/07/19 at 19:30 Piperacillin Sod/ Tazobactam Sod 100 ml @ 200 mls/hr Q8H IVPB Last administered on 05/10/19at 03:47; Admin Dose 200 MLS/HR; Start 05/07/19 at 19:30 Ondansetron HCl (Zofran Inj) 4 mg Q4H PRN IV nausea; Start 05/07/19 at 20:00 Morphine Sulfate (morphine) 4 mg Q4H PRN IV pain; Start 05/07/19 at 20:00 Vancomycin HCl 250 ml @ 125 mls/hr Q12H IVPB Last administered on 05/10/19at 04:58; Admin Dose 125 MLS/HR; Start 05/08/19 at 04:00 Propofol 100 ml @ 1.909 mls/ hr Q12H IV Last administered on 05/10/19at 08:41; Admin Dose 17.183 MLS/HR; Start 05/07/19 at 23:45 Miscellaneous Information (* Miscellaneous Pharmacy Order) Treatment of Hypoglycemia: 1.BG 51... Per protocol XX ; Start 05/08/19 at 00:30 Dextrose (D50w Syringe) 25 ml Q15M PRN IV .DECREASED GLUCOSE; Start 05/08/19 at 00:30 Dextrose (D50w Syringe) 50 ml Q15M PRN IV .DECREASED GLUCOSE; Start 05/08/19 at 00:30 Norepinephrine 250 ml @ 1.875 mls/ hr TITRATE IV Last administered on 05/08/19 22:27; Admin Dose 11.25 MLS/HR; Start 05/08/19 at 01:00 Sodium Chloride 1,000 ml @ 75 mls/hr [id number] IV Last administered on 05/10/19 09:24; Admin Dose 75 MLS/HR; Start 05/08/19 at 01:30 Acetaminophen (Tylenol Liquid) 650 mg Q4H PRN NGT MILD PAIN(1-3)OR ELEVATED TEMP Last administered on 05/09/19 08:14; Admin Dose 650 MG; Start 05/08/19 at 10:00 Potassium Chloride 50 ml @ 50 mls/hr K PROTOCOL PRN IVPB PENDING LAB VALUE; Start 05/08/19 at 10:00 Famotidine (Pepcid Iv) 20 mg BID IV Last administered on 05/10/19 08:41; Admin Dose 20 MG; Start 05/08/19 at 12:30 Enoxaparin Sodium (Lovenox) 40 mg DAILY SC Last administered on 05/10/19 08:46; Admin Dose 40 MG; Start 05/09/19 at 09:00 Collagenase (Santyl) 1 applic BID TOP Last administered on 05/09/19 20:40; Admin Dose 1 APPLIC; Start 05/08/19 at 21:00 Sodium Hypochlorite (Dakins Diluted (/40)) 1 applic BID TP Last administered on 05/09/19 20:36; Admin Dose 1 APPLIC; Start 05/08/19 at 21:00 Insulin Human NPH (Humulin N) 12 unit Q12H SC Last administered on 05/10/19 08:54; Admin Dose 12 UNIT; Start 05/09/19 at 19:30 Fentanyl 100 ml @ 2.5 mls/hr TITRATE IV ; Start 05/10/19 at 09:30 CARINE RESENDIZ May 10, 2019 09:53
[2019-05-10] MEDS: COLLAGENASE 5 GM (UD JAR) TOP SCH ×2 (10:11→21:02)
[2019-05-10] MEDS: FENTAnyl (DRIP) 1000 mcg/100mL 100 ML IV SCH ×2 (10:32→21:17)
--- NOTE | 2019-05-10 10:39 | PN ---
Date/Time of Note Date/Time of Note DATE: 05/10/19 TIME: 10:35 Subjective Remains intubated and sedated Objective Vitals Vital Signs Date Temp Pulse Resp B/P (MAP) Pulse Ox O2 O2 Flow FiO2 Time Delivery Rate 05/10/19 79 29 125/71 100 Mechanical 06:00 (89) Ventilator 05/10/19 30 05:43 05/10/19 97.9 04:00 05/07/19 2.0 20:40 Intake and Output 05/09/19 05/09/19 05/10/19 1515:00 23:00 07:00 IntakeIntake Total 1437.411 ml 1482.011 ml 880.281 ml OutputOutput Total 1275 ml 725 ml 750 ml BalanceBalance 162.411 ml 757.011 ml 130.281 ml Bilateral rhonchi Regular rate and rhythm Soft normoactive bowel sounds Left forearm amputated Results Result Diagram: 05/10/19 0415 05/10/19 0415 Medications Medications Current Medications IV Flush (NS 10 ml) 10 ml PRN PRN IV IV PROTOCOL; Start 05/07/19 at 17:30 Dextrose (D50w Syringe) 50 ml Q15M PRN IV For BS 50 or less; Start 05/07/19 at 19:30 Dextrose (D50w Syringe) 25 ml Q15M PRN IV BS between 50-70; Start 05/07/19 at 19:30 Miscellaneous Information (* Miscellaneous Pharmacy Order) HYPOGLYCEMIA TREATMENT HYPOGLYCEM PROTOCOL PRN XX Hypoglycemia (BS < 70); Start 05/07/19 at 19:30 Potassium Chloride/Sodium Chloride 1,000 ml @ 0 mls/hr Q0M IV ; Start 05/07/19 at 19:27 Potassium Chloride/Sodium Chloride 1,000 ml @ 0 mls/hr Q0M IV ; Start 05/07/19 at 19:27 Insulin Aspart (Novolog Insulin Pen) NOVOLOG *MODERATE* ALGORI... Q4H SC Last administered on 05/10/19at 08:49; Admin Dose 10 UNIT; Start 05/07/19 at 19:30 Vancomycin HCl (Vanco Iv Per Pharmacy) VANCOMYCIN PER PHARMACY PER PROTOCOL XX ; Start 05/07/19 at 19:30 Piperacillin Sod/ Tazobactam Sod 100 ml @ 200 mls/hr Q8H IVPB Last administered on 05/10/19 03:47; Admin Dose 200 MLS/HR; Start 05/07/19 at 19:30 Ondansetron HCl (Zofran Inj) 4 mg Q4H PRN IV nausea; Start 05/07/19 at 20:00 Morphine Sulfate (morphine) 4 mg Q4H PRN IV pain; Start 05/07/19 at 20:00 Vancomycin HCl 250 ml @ 125 mls/hr Q12H IVPB Last administered on 05/10/19 04:58; Admin Dose 125 MLS/HR; Start 05/08/19 at 04:00 Propofol 100 ml @ 1.909 mls/ hr Q12H IV Last administered on 05/10/19 08:41; Admin Dose 17.183 MLS/HR; Start 05/07/19 at 23:45 Miscellaneous Information (* Miscellaneous Pharmacy Order) Treatment of Hypoglycemia: 1.BG 51... Per protocol XX ; Start 05/08/19 at 00:30 Dextrose (D50w Syringe) 25 ml Q15M PRN IV .DECREASED GLUCOSE; Start 05/08/19 at 00:30 Dextrose (D50w Syringe) 50 ml Q15M PRN IV .DECREASED GLUCOSE; Start 05/08/19 at 00:30 Norepinephrine 250 ml @ 1.875 mls/ hr TITRATE IV Last administered on 05/08/19 22:27; Admin Dose 11.25 MLS/HR; Start 05/08/19 at 01:00 Sodium Chloride 1,000 ml @ 75 mls/hr [id number] IV Last administered on 05/10/19 09:24; Admin Dose 75 MLS/HR; Start 05/08/19 at 01:30 Acetaminophen (Tylenol Liquid) 650 mg Q4H PRN NGT MILD PAIN(1-3)OR ELEVATED TEMP Last administered on 05/09/19 08:14; Admin Dose 650 MG; Start 05/08/19 at 10:00 Potassium Chloride 50 ml @ 50 mls/hr K PROTOCOL PRN IVPB PENDING LAB VALUE; Start 05/08/19 at 10:00 Famotidine (Pepcid Iv) 20 mg BID IV Last administered on 05/10/19 08:41; Admin Dose 20 MG; Start 05/08/19 at 12:30 Enoxaparin Sodium (Lovenox) 40 mg DAILY SC Last administered on 05/10/19 08:46; Admin Dose 40 MG; Start 05/09/19 at 09:00 Collagenase (Santyl) 1 applic BID TOP Last administered on 05/10/19 10:11; Admin Dose 1 APPLIC; Start 05/08/19 at 21:00 Sodium Hypochlorite (Dakins Diluted (40)) 1 applic BID TP Last administered on 05/09/19 20:36; Admin Dose 1 APPLIC; Start 05/08/19 at 21:00 Insulin Human NPH (Humulin N) 12 unit Q12H SC Last administered on 05/10/19 08:54; Admin Dose 12 UNIT; Start 05/09/19 at 19:30 Fentanyl 100 ml @ 2.5 mls/hr TITRATE IV Last administered on 05/10/19 10:32; Admin Dose 2.5 MLS/HR; Start 05/10/19 at 09:30 VTE Prophylaxis Risk score (from Nsg)>0 risk: 8 SCD applied (from Nsg): Yes Lines/Catheters IV Catheter Type: Saline Lock Goldman in Place: No Assessment/Plan Assessment/Plan 49-year-old male with DKA, resolved Acute respiratory failure Bilateral pneumonia versus septic emboli Staph bacteremia Long history of IV drug abuse Rule out endocarditis Poorly controlled diabetes mellitus Persistent leukocytosis 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
[2019-05-10] MEDS: DAKINS 0.0125%(1/40) 473 ML SOLUTION TP SCH ×2 (11:29→21:02)
[2019-05-10] MEDS: CEFTRIAXONE 2 GM/50 ML (PMX) 50 ML IVPB SCH (11:29)
[2019-05-10] MEDS: INSULIN HUMAN REGULAR 100 UNIT in SOD CHLORIDE 0.9% 99 ML IV SCH (11:35)
[2019-05-10] MEDS: ACCU-CHEK XX SCH ×13 (11:39→23:00)
[2019-05-10] MEDS ORDERED: PHENYLephrine 20MG IN 250 ML 250 ML ONE (11:58)
[2019-05-10] MEDS ORDERED: PHENYLephrine 20MG IN 250 ML 250 ML IV SCH (12:00)
[2019-05-10] MEDS ORDERED: MIDAZOLAM 1 MG/ML 2 ML INJ IV PRN ×2 (12:00)
--- NOTE | 2019-05-10 12:32 | OPR ---
Date/Time of Note Date/Time of Note DATE: 05/10/19 TIME: 12:29 Operative Report Procedure Date: May 10, 2019 Preoperative Diagnosis Sepsis Postoperative Diagnosis No evidence of valvular endocarditis Operation/Procedure Performed Transesophageal echocardiogram Surgeon see signature line Cat Sitter ICU staff Anesthesia Type: moderate sedation Estimated Blood Loss: none Transfusion none Specimen None Grafts/Implants none Complications none Pt Condition Post Procedure: guarded Procedure Description After timeout performed, and patient will sedated, patient intubated with ELIE probe. Images were obtained. Contrast bubble study was performed. ELIE probe was removed. There was no immediate complications Findings Left ventricle grossly normal with normal systolic function Right ventricle grossly normal Left atrium grossly normal size Right atrium grossly normal size. Intra-atrial septum appears intact with no evidence of flow seen with color Doppler and contrast bubble study Aortic valve is trileaflet with trivial regurgitation, no vegetations seen Mitral valve appears thickened, trace to mild regurgitation. No vegetation seen. Tricuspid valve visualized but poorly, no significant regurgitation or vegetation seen Pulmonic valve poorly visualized with no significant regurgitation Visualized portion of descending aorta appeared within normal limits Conclusion No evidence of valvular endocarditis Steven Masterson DO May 10, 2019 12:32
--- NOTE | 2019-05-10 18:49 | CONS ---
Assessment/Plan Assessment/Plan Hospital Course (Demo Recall) Respiratory failure DKA Sepsis Staph aureus bacteremia History of IV drug use Patient with history of intravenous drug use, presents with DKA, staph aureus bacteremia and respiratory failure status post intubation ELIE no vegetation seen Antibiotics as per infectious disease Consultation Date/Type/Reason Admit Date/Time May 07, 2019 at 18:29 Initial Consult Date Type of Consult Cardiology Date/Time of Note DATE: 05/10/19 TIME: 18:46 24 HR Interval Summary Free Text/Dictation remains intubated, no new CV issues Exam/Review of Systems Vital Signs Vitals Vital Signs Date Temp Pulse Resp B/P (MAP) Pulse Ox O2 O2 Flow FiO2 Time Delivery Rate 05/10/19 103 17 145/100 100 17:30 (115) 05/10/19 30 17:10 05/10/19 98.7 16:00 05/10/19 Mechanical 06:00 Ventilator 05/07/19 2.0 20:40 Intake and Output 05/09/19 05/09/19 05/10/19 1515:00 23:00 07:00 IntakeIntake Total 1437.411 ml 1482.011 ml 1097.281 ml OutputOutput Total 1275 ml 725 ml 800 ml BalanceBalance 162.411 ml 757.011 ml 297.281 ml Exam Exam intubated, nad, sedated Head: normocephalic ENMT: intubated Respiratory: other (course bs, no wheeze) Cardiovascular: regular rate and rhythm (s1s2) Gastrointestinal: soft, non-tender, bowel sounds Extremities: edema (no), other Labs Result Diagram: 05/10/19 0415 05/10/19 0415 Results 24hrs Laboratory Tests Test 05/09/19 19:02 05/09/19 23:49 05/10/19 03:47 05/10/19 04:15 Bedside Glucose 294 H 268 H 289 H White Blood Count 17.4 H Red Blood Count 3.71 L Hemoglobin 9.2 L Hematocrit 26.4 L Mean Corpuscular 71.2 L Volume Mean Corpuscular 24.8 L Hemoglobin Mean Corpuscular 34.8 Hemoglobin Concent Red Cell 14.9 H Distribution Width Platelet Count 203 Mean Platelet 11.4 H Volume Immature 2.900 H Granulocytes % Neutrophils % 75.5 Segmented 29 L Neutrophils % (Manual) Band Neutrophils % 51 H (Manual) Lymphocytes % 12.0 L Lymphocytes % 5 L (Manual) Monocytes % 9.2 Monocytes % 12 H (Manual) Eosinophils % 0.2 Basophils % 0.2 Metamyelocytes % 1 H (manual) Myelocytes % 1 H (Manual) Promyelocytes % 1 H (Manual) Nucleated Red 0.0 Blood Cells % Immature 0.510 H Granulocytes # Neutrophils # 13.1 H Neutrophils # 6.6 (Manual) Band Neutrophils # 8.8 H Lymphocytes 0.8 (Manual) Lymphocytes # 2.1 Monocytes # 1.6 H Monocytes # 2.0 H (Manual) Eosinophils # 0.0 Basophils # 0.0 Metamyelocytes # 0.1 H Myelocytes # 0.1 H Promyelocytes # 0.1 H Nucleated Red 0.0 Blood Cells # Toxic Granulation 1+ Platelet Estimate NORMAL Poikilocytosis 2+ Anisocytosis 1+ Microcytosis 1+ Sodium Level 153 H Potassium Level 3.7 Chloride Level 129 H Carbon Dioxide 18 L Level Anion Gap 6 Blood Urea 24 H Nitrogen Creatinine 0.79 Est Glomerular > 60 Filtrat Rate mL/min Glucose Level 289 H Hemoglobin A1c Calcium Level 9.6 Test 05/10/19 08:45 05/10/19 10:40 05/10/19 11:33 05/10/19 12:33 Bedside Glucose 303 H 242 H 241 H Lab Scanned Report REFERENCE LAB Test 05/10/19 13:51 05/10/19 15:09 05/10/19 15:58 05/10/19 17:19 Bedside Glucose 218 170 150 156 Medications Medications Current Medications IV Flush (NS 10 ml) 10 ml PRN PRN IV IV PROTOCOL; Start 05/07/19 at 17:30 Dextrose (D50w Syringe) 50 ml Q15M PRN IV For BS 50 or less; Start 05/07/19 at 19:30 Dextrose (D50w Syringe) 25 ml Q15M PRN IV BS between 50-70; Start 05/07/19 at 19:30 Miscellaneous Information (* Miscellaneous Pharmacy Order) HYPOGLYCEMIA TREATMENT HYPOGLYCEM PROTOCOL PRN XX Hypoglycemia (BS < 70); Start 05/07/19 at 19:30 Potassium Chloride/Sodium Chloride 1,000 ml @ 0 mls/hr Q0M IV ; Start 05/07/19 at 19:27 Potassium Chloride/Sodium Chloride 1,000 ml @ 0 mls/hr Q0M IV ; Start 05/07/19 at 19:27 Ondansetron HCl (Zofran Inj) 4 mg Q4H PRN IV nausea; Start 05/07/19 at 20:00 Morphine Sulfate (morphine) 4 mg Q4H PRN IV pain; Start 05/07/19 at 20:00 Propofol 100 ml @ 1.909 mls/ hr Q12H IV Last administered on 05/10/19at 14:25; Admin Dose 13.364 MLS/HR; Start 05/07/19 at 23:45 Miscellaneous Information (* Miscellaneous Pharmacy Order) Treatment of Hypoglycemia: 1.BG 51... Per protocol XX ; Start 05/08/19 at 00:30 Dextrose (D50w Syringe) 25 ml Q15M PRN IV .DECREASED GLUCOSE; Start 05/08/19 at 00:30 Dextrose (D50w Syringe) 50 ml Q15M PRN IV .DECREASED GLUCOSE; Start 05/08/19 at 00:30 Norepinephrine 250 ml @ 1.875 mls/ hr TITRATE IV Last administered on 05/08/19at 22:27; Admin Dose 11.25 MLS/HR; Start 05/08/19 at 01:00 Sodium Chloride 1,000 ml @ 75 mls/hr [id number] IV Last administered on 05/10/19at 09:24; Admin Dose 75 MLS/HR; Start 05/08/19 at 01:30 Acetaminophen (Tylenol Liquid) 650 mg Q4H PRN NGT MILD PAIN(1-3)OR ELEVATED TEMP Last administered on 05/09/19at 08:14; Admin Dose 650 MG; Start 05/08/19 at 10:00 Potassium Chloride 50 ml @ 50 mls/hr K PROTOCOL PRN IVPB PENDING LAB VALUE; Start 05/08/19 at 10:00 Famotidine (Pepcid Iv) 20 mg BID IV Last administered on 05/10/19at 08:41; Admin Dose 20 MG; Start 05/08/19 at 12:30 Enoxaparin Sodium (Lovenox) 40 mg DAILY SC Last administered on 05/10/19at 08:46; Admin Dose 40 MG; Start 05/09/19 at 09:00 Collagenase (Santyl) 1 applic BID TOP Last administered on 05/10/19 10:11; Admin Dose 1 APPLIC; Start 05/08/19 at 21:00 Sodium Hypochlorite (Dakins Diluted ()) 1 applic BID TP Last administered on 05/10/19 11:29; Admin Dose 1 APPLIC; Start 05/08/19 at 21:00 Fentanyl 100 ml @ 2.5 mls/hr TITRATE IV Last administered on 05/10/19 10:32; Admin Dose 2.5 MLS/HR; Start 05/10/19 at 09:30 Ceftriaxone Sodium 50 ml @ 100 mls/hr Q24H IVPB Last administered on 05/10/19 11:29; Admin Dose 100 MLS/HR; Start 05/10/19 at 11:00 Diagnostic Test (Pha) (Accu-Chek) 1 ea Q1H XX Last administered on 05/10/19 18:40; Admin Dose 1 EA; Start 05/10/19 at 11:00 Insulin Human Regular 100 unit/ Sodium Chloride 100 ml @ 0 mls/hr PER PROTOCOL IV Last administered on 05/10/19 11:35; Admin Dose 3 MLS/HR; Start 05/10/19 at 12:00 Phenylephrine HCl 250 ml @ 75 mls/hr TITRATE IV ; Start 05/10/19 at 12:00 Steven Masterson DO May 10, 2019 18:49
[2019-05-10] MEDS: ACETAMINOPHEN 650MG/20.3ML CUP NGT PRN (21:30)
[2019-05-11] VITALS (60 sets, daily range): BP systolic 81–145; BP diastolic 47–84; PULSE 68–99; RESP 17–31
[2019-05-11] MEDS: ACCU-CHEK XX SCH ×23 (01:00→23:00)
[2019-05-11] MEDS: PROPOFOL 100 ML IV SCH ×3 (03:24→16:35)
[2019-05-11] MEDS: FENTAnyl (DRIP) 1000 mcg/100mL 100 ML IV SCH ×2 (07:26→20:13)
[2019-05-11] MEDS: COLLAGENASE 5 GM (UD JAR) TOP SCH ×2 (08:56→21:17)
[2019-05-11] MEDS: FAMOTIDINE 20 MG INJ IV SCH ×2 (08:56→21:17)
[2019-05-11] MEDS: DAKINS 0.0125%(1/40) 473 ML SOLUTION TP SCH ×2 (08:56→21:24)
[2019-05-11] MEDS: POTASSIUM CHLORIDE (SR) 20 MEQ TAB PO SCH ×4 (08:57→16:10)
[2019-05-11] MEDS: ENOXAPARIN 40 MG/0.4 ML SYG SC SCH (08:59)
--- NOTE | 2019-05-11 09:53 | CONS ---
Consult Date/Type/Reason Admit Date/Time May 07, 2019 at 18:29 Initial Consult Date Type of Consult Pulmonary Date/Time of Note DATE: 05/11/19 TIME: 09:49 Subjective Patient remained stable this morning. Significant agitation however. Continues to require propofol and fentanyl. Objective Vital Signs Date Temp Pulse Resp B/P (MAP) Pulse Ox O2 O2 Flow FiO2 Time Delivery Rate 05/11/19 68 08:00 05/11/19 99.7 25 127/71 100 07:00 (89) 05/11/19 30 05:50 05/11/19 Mechanical 05:00 Ventilator 05/07/19 2.0 20:40 Intake and Output 05/10/19 05/10/19 05/11/19 1515:00 23:00 07:00 IntakeIntake Total 834.75 ml 1351.320 ml 1053.0213 ml OutputOutput Total 750 ml 755 ml 800 ml BalanceBalance 84.75 ml 596.320 ml 253.0213 ml Exam PHYSICAL EXAMINATION: VITAL SIGNS: HEENT: Pupils are equal and reactive to light, orally intubated. NECK: Supple, no JVD noted, no cervical adenopathy noted. LUNGS: Fair breath sounds bilaterally. CARDIOVASCULAR: S1, S2 normal. ABDOMEN: Soft, nontender. No megaly or masses noted. EXTREMITIES: No clubbing, cyanosis, or edema noted. Left below-knee amputation noted. NEUROLOGICAL: Currently sedated on the vent. Vent Setting Ventilator Support Mode: AC Fraction of Inspired Oxygen pe: 30 Positive End Expiratory Pressu: 5.0 Results/Medications Result Diagram: 05/11/19 0440 05/11/19 0440 Results 24 hrs Laboratory Tests Test 05/10/19 10:40 05/10/19 11:33 05/10/19 12:33 05/10/19 13:51 Lab Scanned Report REFERENCE LAB Bedside Glucose 242 H 241 H 218 Test 05/10/19 15:09 05/10/19 15:58 05/10/19 17:19 05/10/19 18:40 Bedside Glucose 170 150 156 127 Test 05/10/19 20:43 05/10/19 22:01 05/10/19 23:10 05/11/19 00:18 Bedside Glucose 170 200 192 197 Test 05/11/19 01:09 05/11/19 02:09 05/11/19 03:06 05/11/19 04:15 Bedside Glucose 188 143 130 114 Test 05/11/19 04:40 05/11/19 05:04 05/11/19 06:23 05/11/19 07:04 White Blood Count 12.2 #H Red Blood Count 3.52 L Hemoglobin 8.7 L Hematocrit 24.7 L Mean Corpuscular 70.2 L Volume Mean Corpuscular 24.7 L Hemoglobin Mean Corpuscular 35.2 Hemoglobin Concent Red Cell 14.9 H Distribution Width Platelet Count 223 Mean Platelet 10.8 H Volume Immature 3.100 H Granulocytes % Neutrophils % Lymphocytes % Monocytes % Eosinophils % Basophils % Nucleated Red 0.0 Blood Cells % Immature 0.380 H Granulocytes # Neutrophils # Lymphocytes # Monocytes # Eosinophils # Basophils # Nucleated Red Blood Cells # Sodium Level 157 H Potassium Level 2.8 *L Chloride Level 130 H Carbon Dioxide 23 Level Anion Gap 4 L Blood Urea 23 H Nitrogen Creatinine 0.71 Est Glomerular > 60 Filtrat Rate mL/min Glucose Level 105 # Calcium Level 8.7 Bedside Glucose 111 126 135 Test 05/11/19 08:55 Bedside Glucose 152 Medications Current Medications IV Flush (NS 10 ml) 10 ml PRN PRN IV IV PROTOCOL; Start 05/07/19 at 17:30 Dextrose (D50w Syringe) 50 ml Q15M PRN IV For BS 50 or less; Start 05/07/19 at 19:30 Dextrose (D50w Syringe) 25 ml Q15M PRN IV BS between 50-70; Start 05/07/19 at 19:30 Miscellaneous Information (* Miscellaneous Pharmacy Order) HYPOGLYCEMIA TREATMENT HYPOGLYCEM PROTOCOL PRN XX Hypoglycemia (BS < 70); Start 05/07/19 at 19:30 Potassium Chloride/Sodium Chloride 1,000 ml @ 0 mls/hr Q0M IV ; Start 05/07/19 at 19:27 Potassium Chloride/Sodium Chloride 1,000 ml @ 0 mls/hr Q0M IV ; Start 05/07/19 at 19:27 Ondansetron HCl (Zofran Inj) 4 mg Q4H PRN IV nausea; Start 05/07/19 at 20:00 Morphine Sulfate (morphine) 4 mg Q4H PRN IV pain; Start 05/07/19 at 20:00 Propofol 100 ml @ 1.909 mls/ hr Q12H IV Last administered on 05/11/19 03:24; Admin Dose 17.183 MLS/HR; Start 05/07/19 at 23:45 Miscellaneous Information (* Miscellaneous Pharmacy Order) Treatment of Hypoglycemia: 1.BG 51... Per protocol XX ; Start 05/08/19 at 00:30 Dextrose (D50w Syringe) 25 ml Q15M PRN IV .DECREASED GLUCOSE; Start 05/08/19 at 00:30 Dextrose (D50w Syringe) 50 ml Q15M PRN IV .DECREASED GLUCOSE; Start 05/08/19 at 00:30 Norepinephrine 250 ml @ 1.875 mls/ hr TITRATE IV Last administered on 05/08/19 22:27; Admin Dose 11.25 MLS/HR; Start 05/08/19 at 01:00 Acetaminophen (Tylenol Liquid) 650 mg Q4H PRN NGT MILD PAIN(1-3)OR ELEVATED TEMP Last administered on 05/10/19 21:30; Admin Dose 650 MG; Start 05/08/19 at 10:00 Potassium Chloride 50 ml @ 50 mls/hr K PROTOCOL PRN IVPB PENDING LAB VALUE; Start 05/08/19 at 10:00 Famotidine (Pepcid Iv) 20 mg BID IV Last administered on 05/11/19 08:56; Admin Dose 20 MG; Start 05/08/19 at 12:30 Enoxaparin Sodium (Lovenox) 40 mg DAILY SC Last administered on 05/11/19 08:59; Admin Dose 40 MG; Start 05/09/19 at 09:00 Collagenase (Santyl) 1 applic BID TOP Last administered on 05/11/19 08:56; Admin Dose 1 APPLIC; Start 05/08/19 at 21:00 Sodium Hypochlorite (Dakins Diluted ()) 1 applic BID TP Last administered on 05/11/19 08:56; Admin Dose 1 APPLIC; Start 05/08/19 at 21:00 Fentanyl 100 ml @ 2.5 mls/hr TITRATE IV Last administered on 05/11/19 07:26; Admin Dose 7.5 MLS/HR; Start 05/10/19 at 09:30 Ceftriaxone Sodium 50 ml @ 100 mls/hr Q24H IVPB Last administered on 05/10/19 11:29; Admin Dose 100 MLS/HR; Start 05/10/19 at 11:00 Diagnostic Test (Pha) (Accu-Chek) 1 ea Q1H XX Last administered on 05/11/19 08:57; Admin Dose 1 EA; Start 05/10/19 at 11:00 Insulin Human Regular 100 unit/ Sodium Chloride 100 ml @ 0 mls/hr PER PROTOCOL IV Last administered on 05/10/19 11:35; Admin Dose 3 MLS/HR; Start 05/10/19 at 12:00 Phenylephrine HCl 250 ml @ 75 mls/hr TITRATE IV ; Start 05/10/19 at 12:00 Potassium Chloride (Klor-Con 20) 40 meq Q2 PO Last administered on 05/11/19 08:57; Admin Dose 40 MEQ; Start 05/11/19 at 09:00; Stop 05/11/19 at 15:01 Assessment/Plan Hospital Course (Demo Recall) Assessment and recommendations; 1. Patient admitted with DKA leading to respiratory failure requiring intubation. 2. Active intravenous drug use. 3. Staph aureus bacteremia. 4. 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 5. Possible endocarditis with septic embolism to lungs. 6. Possibly some element of opiate withdrawal. Plan 1. Trial of Precedex for agitation 2. Continue antibiotics 3. Free water and replace potassium 4. Cardiology recommendations regarding endocarditis work-up. 5. Continue insulin drip for DKA Case discussed with family at bedside Critical care time 40 minutes DEVIN HAGER MD, [facility] May 11, 2019 09:53
[2019-05-11] MEDS ORDERED: DEXMEDETOMIDINE IN DEXTROSE 5% 50 ML IV SCH (10:00)
[2019-05-11] MEDS: DEXMEDETOMIDINE IN DEXTROSE 5% 50 ML IV SCH ×4 (10:26→23:32)
[2019-05-11] MEDS: CEFTRIAXONE 2 GM/50 ML (PMX) 50 ML IVPB SCH (10:46)
--- NOTE | 2019-05-11 11:21 | PN ---
Date/Time of Note Date/Time of Note DATE: 05/11/19 TIME: 11:19 Subjective Remains intubated and sedated Objective Vitals Vital Signs Date Temp Pulse Resp B/P (MAP) Pulse Ox O2 O2 Flow FiO2 Time Delivery Rate 05/11/19 87 17 135/77 100 10:00 (96) 05/11/19 30 09:42 05/11/19 98.9 08:00 05/11/19 Mechanical 05:00 Ventilator 05/07/19 2.0 20:40 Intake and Output 05/10/19 05/10/19 05/11/19 1515:00 23:00 07:00 IntakeIntake Total 834.75 ml 1351.320 ml 1053.0213 ml OutputOutput Total 750 ml 755 ml 800 ml BalanceBalance 84.75 ml 596.320 ml 253.0213 ml Bilateral rhonchi Regular rate and rhythm no murmurs or gallops Soft normoactive bowel sounds Mild edema Results Result Diagram: 05/11/19 0440 05/11/19 0440 Medications Medications Current Medications IV Flush (NS 10 ml) 10 ml PRN PRN IV IV PROTOCOL; Start 05/07/19 at 17:30 Dextrose (D50w Syringe) 50 ml Q15M PRN IV For BS 50 or less; Start 05/07/19 at 19:30 Dextrose (D50w Syringe) 25 ml Q15M PRN IV BS between 50-70; Start 05/07/19 at 19:30 Miscellaneous Information (* Miscellaneous Pharmacy Order) HYPOGLYCEMIA TREATMENT HYPOGLYCEM PROTOCOL PRN XX Hypoglycemia (BS < 70); Start 05/07/19 at 19:30 Potassium Chloride/Sodium Chloride 1,000 ml @ 0 mls/hr Q0M IV ; Start 05/07/19 at 19:27 Potassium Chloride/Sodium Chloride 1,000 ml @ 0 mls/hr Q0M IV ; Start 05/07/19 at 19:27 Ondansetron HCl (Zofran Inj) 4 mg Q4H PRN IV nausea; Start 05/07/19 at 20:00 Morphine Sulfate (morphine) 4 mg Q4H PRN IV pain; Start 05/07/19 at 20:00 Propofol 100 ml @ 1.909 mls/ hr Q12H IV Last administered on 05/11/19at 09:59; Admin Dose 15.274 MLS/HR; Start 05/07/19 at 23:45 Miscellaneous Information (* Miscellaneous Pharmacy Order) Treatment of Hypoglycemia: 1.BG 51... Per protocol XX ; Start 05/08/19 at 00:30 Dextrose (D50w Syringe) 25 ml Q15M PRN IV .DECREASED GLUCOSE; Start 05/08/19 at 00:30 Dextrose (D50w Syringe) 50 ml Q15M PRN IV .DECREASED GLUCOSE; Start 05/08/19 at 00:30 Norepinephrine 250 ml @ 1.875 mls/ hr TITRATE IV Last administered on 05/08/19 22:27; Admin Dose 11.25 MLS/HR; Start 05/08/19 at 01:00 Acetaminophen (Tylenol Liquid) 650 mg Q4H PRN NGT MILD PAIN(1-3)OR ELEVATED TEMP Last administered on 05/10/19 21:30; Admin Dose 650 MG; Start 05/08/19 at 10:00 Potassium Chloride 50 ml @ 50 mls/hr K PROTOCOL PRN IVPB PENDING LAB VALUE; Start 05/08/19 at 10:00 Famotidine (Pepcid Iv) 20 mg BID IV Last administered on 05/11/19 08:56; Admin Dose 20 MG; Start 05/08/19 at 12:30 Enoxaparin Sodium (Lovenox) 40 mg DAILY SC Last administered on 05/11/19 08:59; Admin Dose 40 MG; Start 05/09/19 at 09:00 Collagenase (Santyl) 1 applic BID TOP Last administered on 05/11/19 08:56; Admin Dose 1 APPLIC; Start 05/08/19 at 21:00 Sodium Hypochlorite (Dakins Diluted (40)) 1 applic BID TP Last administered on 05/11/19 08:56; Admin Dose 1 APPLIC; Start 05/08/19 at 21:00 Fentanyl 100 ml @ 2.5 mls/hr TITRATE IV Last administered on 05/11/19 07:26; Admin Dose 7.5 MLS/HR; Start 05/10/19 at 09:30 Ceftriaxone Sodium 50 ml @ 100 mls/hr Q24H IVPB Last administered on 05/11/19 10:46; Admin Dose 100 MLS/HR; Start 05/10/19 at 11:00 Diagnostic Test (Pha) (Accu-Chek) 1 ea Q1H XX Last administered on 05/11/19at 11:01; Admin Dose 1 EA; Start 05/10/19 at 11:00 Insulin Human Regular 100 unit/ Sodium Chloride 100 ml @ 0 mls/hr PER PROTOCOL IV Last administered on 05/10/19at 11:35; Admin Dose 3 MLS/HR; Start 05/10/19 at 12:00 Phenylephrine HCl 250 ml @ 75 mls/hr TITRATE IV ; Start 05/10/19 at 12:00 Potassium Chloride (Klor-Con 20) 40 meq Q2 PO Last administered on 05/11/19at 10:46; Admin Dose 40 MEQ; Start 05/11/19 at 09:00; Stop 05/11/19 at 15:01 VTE Prophylaxis Risk score (from Ns)>0 risk: 8 SCD applied (from Ns): Yes Lines/Catheters IV Catheter Type: Saline Lock (He) Goldman in Place: No Assessment/Plan Assessment/Plan 49-year-old male with acute respiratory failure DKA, resolved Staph bacteremia of unknown source. 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
[2019-05-11] MEDS ORDERED: POTASSIUM CHLORIDE 50 ML IVPB SCH (11:30)
[2019-05-11] MEDS: POTASSIUM CHLORIDE 40 MEQ in DEXTROSE 5% 1,000 ML IV SCH ×2 (12:40→22:46)
[2019-05-11] MEDS ORDERED: POTASSIUM CHLORIDE 0 ML IVPB ONE (13:26)
[2019-05-11] MEDS: POTASSIUM CHLORIDE 50 ML IVPB SCH ×2 (13:35→16:06)
--- NOTE | 2019-05-11 15:48 | CONS ---
Assessment/Plan Assessment/Plan Hospital Course (Demo Recall) Respiratory failure DKA Sepsis Staph aureus bacteremia History of IV drug use Patient with history of intravenous drug use, presents with DKA, staph aureus bacteremia and respiratory failure status post intubation ELIE no vegetation seen Antibiotics as per infectious disease Consultation Date/Type/Reason Admit Date/Time May 07, 2019 at 18:29 Initial Consult Date Type of Consult Cardiology Date/Time of Note DATE: 05/11/19 TIME: 15:48 24 HR Interval Summary Free Text/Dictation Remains intubated. No new cardiac issues Exam/Review of Systems Vital Signs Vitals Vital Signs Date Temp Pulse Resp B/P (MAP) Pulse Ox O2 O2 Flow FiO2 Time Delivery Rate 05/11/19 90 24 100 30 13:36 05/11/19 135/77 10:00 (96) 05/11/19 98.9 08:00 05/11/19 Mechanical 05:00 Ventilator 05/07/19 2.0 20:40 Intake and Output 05/10/19 05/10/19 05/11/19 1515:00 23:00 07:00 IntakeIntake Total 834.75 ml 1351.320 ml 1053.0213 ml OutputOutput Total 750 ml 755 ml 800 ml BalanceBalance 84.75 ml 596.320 ml 253.0213 ml Exam Exam Intubated and sedated, no apparent distress Head: normocephalic ENMT: intubated Respiratory: other (Coarse breath sounds bilaterally, no wheezing) Cardiovascular: regular rate and rhythm (S1-S2 heard) Gastrointestinal: soft, non-tender, bowel sounds Extremities: other (No edema) Labs Result Diagram: 05/11/19 0440 05/11/19 1156 Results 24hrs Laboratory Tests Test 05/10/19 15:58 05/10/19 17:19 05/10/19 18:40 05/10/19 20:43 Bedside Glucose 150 156 127 170 Test 05/10/19 22:01 05/10/19 23:10 05/11/19 00:18 05/11/19 01:09 Bedside Glucose 200 192 197 188 Test 05/11/19 02:09 05/11/19 03:06 05/11/19 04:15 05/11/19 04:40 Bedside Glucose 143 130 114 White Blood Count 12.2 #H Red Blood Count 3.52 L Hemoglobin 8.7 L Hematocrit 24.7 L Mean Corpuscular 70.2 L Volume Mean Corpuscular 24.7 L Hemoglobin Mean Corpuscular 35.2 Hemoglobin Concent Red Cell 14.9 H Distribution Width Platelet Count 223 Mean Platelet Volume 10.8 H Immature 3.100 H Granulocytes % Neutrophils % Segmented 29 L Neutrophils % (Manual) Band Neutrophils % 49 H (Manual) Lymphocytes % Lymphocytes % 12 L (Manual) Reactive Lymphocytes 2 H % (Manual) Monocytes % Monocytes % (Manual) 6 Eosinophils % Eosinophils % 2 (Manual) Basophils % Nucleated Red Blood 0.0 Cells % Immature 0.380 H Granulocytes # Neutrophils # Neutrophils # 4.3 (Manual) Band Neutrophils # 5.9 H Lymphocytes (Manual) 1.4 Lymphocytes # Reactive Lymphocytes 0.2 H # Monocytes # Monocytes # (Manual) 0.7 Eosinophils # Basophils # Nucleated Red Blood Cells # Platelet Estimate NORMAL Giant Platelets 1 H Poikilocytosis 1+ Anisocytosis 1+ Sodium Level 157 H Potassium Level 2.8 *L Chloride Level 130 H Carbon Dioxide Level 23 Anion Gap 4 L Blood Urea Nitrogen 23 H Creatinine 0.71 Est Glomerular > 60 Filtrat Rate mL/min Glucose Level 105 # Calcium Level 8.7 Test 05/11/19 05:04 05/11/19 06:23 05/11/19 07:04 05/11/19 08:55 Bedside Glucose 111 126 135 152 Test 05/11/19 09:55 05/11/19 10:51 05/11/19 11:56 05/11/19 11:57 Bedside Glucose 181 178 165 Potassium Level 2.4 *L Test 05/11/19 13:08 05/11/19 14:01 05/11/19 14:57 Bedside Glucose 135 157 144 Medications Medications Current Medications IV Flush (NS 10 ml) 10 ml PRN PRN IV IV PROTOCOL; Start 05/07/19 at 17:30 Dextrose (D50w Syringe) 50 ml Q15M PRN IV For BS 50 or less; Start 05/07/19 at 19:30 Dextrose (D50w Syringe) 25 ml Q15M PRN IV BS between 50-70; Start 05/07/19 at 19:30 Miscellaneous Information (* Miscellaneous Pharmacy Order) HYPOGLYCEMIA T REATMENT HYPOGLYCEM PROTOCOL PRN XX Hypoglycemia (BS < 70); Start 05/07/19 at 19:30 Potassium Chloride/Sodium Chloride 1,000 ml @ 0 mls/hr Q0M IV ; Start 05/07/19 at 19:27 Ondansetron HCl (Zofran Inj) 4 mg Q4H PRN IV nausea; Start 05/07/19 at 20:00 Morphine Sulfate (morphine) 4 mg Q4H PRN IV pain; Start 05/07/19 at 20:00 Propofol 100 ml @ 1.909 mls/ hr Q12H IV Last administered on 05/11/19at 09:59; Admin Dose 15.274 MLS/HR; Start 05/07/19 at 23:45 Miscellaneous Information (* Miscellaneous Pharmacy Order) Treatment of Hypoglycemia: 1.BG 51... Per protocol XX ; Start 05/08/19 at 00:30 Dextrose (D50w Syringe) 25 ml Q15M PRN IV .DECREASED GLUCOSE; Start 05/08/19 at 00:30 Dextrose (D50w Syringe) 50 ml Q15M PRN IV .DECREASED GLUCOSE; Start 05/08/19 at 00:30 Norepinephrine 250 ml @ 1.875 mls/ hr TITRATE IV Last administered on 05/08/19at 22:27; Admin Dose 11.25 MLS/HR; Start 05/08/19 at 01:00 Acetaminophen (Tylenol Liquid) 650 mg Q4H PRN NGT MILD PAIN(1-3)OR ELEVATED TEMP Last administered on 05/10/19at 21:30; Admin Dose 650 MG; Start 05/08/19 at 10:00 Potassium Chloride 50 ml @ 50 mls/hr K PROTOCOL PRN IVPB PENDING LAB VALUE; Start 05/08/19 at 10:00 Famotidine (Pepcid Iv) 20 mg BID IV Last administered on 05/11/19at 08:56; Admin Dose 20 MG; Start 05/08/19 at 12:30 Enoxaparin Sodium (Lovenox) 40 mg DAILY SC Last administered on 05/11/19at 08:59; Admin Dose 40 MG; Start 05/09/19 at 09:00 Collagenase (Santyl) 1 applic BID TOP Last administered on 05/11/19at 08:56; Admin Dose 1 APPLIC; Start 05/08/19 at 21:00 Sodium Hypochlorite (Dakins Diluted (1/40)) 1 applic BID TP Last administered on 05/11/19 08:56; Admin Dose 1 APPLIC; Start 05/08/19 at 21:00 Fentanyl 100 ml @ 2.5 mls/hr TITRATE IV Last administered on 05/11/19 07:26; Admin Dose 7.5 MLS/HR; Start 05/10/19 at 09:30 Ceftriaxone Sodium 50 ml @ 100 mls/hr Q24H IVPB Last administered on 05/11/19 10:46; Admin Dose 100 MLS/HR; Start 05/10/19 at 11:00 Diagnostic Test (Pha) (Accu-Chek) 1 ea Q1H XX Last administered on 05/11/19 14:59; Admin Dose 1 EA; Start 05/10/19 at 11:00 Insulin Human Regular 100 unit/ Sodium Chloride 100 ml @ 0 mls/hr PER PROTOCOL IV Last administered on 05/10/19 11:35; Admin Dose 3 MLS/HR; Start 05/10/19 at 12:00 Phenylephrine HCl 250 ml @ 75 mls/hr TITRATE IV ; Start 05/10/19 at 12:00 Potassium Chloride 40 meq/ Dextrose 1,020 ml @ 100 mls/hr [id number] IV Last administered on 05/11/19 12:40; Admin Dose 100 MLS/HR; Start 05/11/19 at 12:30 Mupirocin (Bactroban) 1 applic BID TOP ; Start 05/11/19 at 21:00 Potassium Chloride 50 ml @ 25 mls/hr Q2H IVPB Last administered on 05/11/19 13:35; Admin Dose 25 MLS/HR; Start 05/11/19 at 13:00; Stop 05/11/19 at 16:59 Steven Masterson DO May 11, 2019 15:48
[2019-05-11] MEDS: MUPIROCIN 2% 22 GM OINT TOP SCH ×2 (21:44→21:54)
[2019-05-11] MEDS: INSULIN HUMAN REGULAR 100 UNIT in SOD CHLORIDE 0.9% 99 ML IV SCH (21:55)
[2019-05-11] MEDS: ACETAMINOPHEN 650MG/20.3ML CUP NGT PRN (21:56)
[2019-05-12] VITALS (35 sets, daily range): BP systolic 87–160; BP diastolic 49–104; PULSE 67–128; RESP 19–39
[2019-05-12] MEDS: ACCU-CHEK XX SCH ×13 (01:00→12:09)
[2019-05-12] MEDS: PROPOFOL 100 ML IV SCH ×2 (02:22→07:19)
[2019-05-12] MEDS: DEXMEDETOMIDINE IN DEXTROSE 5% 50 ML IV SCH ×4 (03:06→13:19)
[2019-05-12] MEDS: DAKINS 0.0125%(1/40) 473 ML SOLUTION TP SCH ×2 (09:00→20:37)
[2019-05-12] MEDS: DOCUSATE SODIUM 10 MG/ML (10ML CUP) GTB SCH (09:30)
[2019-05-12] MEDS: COLLAGENASE 5 GM (UD JAR) TOP SCH ×2 (09:30→20:36)
[2019-05-12] MEDS: ZINC SULFATE 220 MG CAP NGT SCH (09:31)
[2019-05-12] MEDS: ASCORBIC ACID 500 MG TAB NGT SCH (09:31)
[2019-05-12] MEDS: ENOXAPARIN 40 MG/0.4 ML SYG SC SCH (09:38)
[2019-05-12] MEDS: FAMOTIDINE 20 MG INJ IV SCH ×2 (09:38→20:44)
[2019-05-12] MEDS ORDERED: SOD CHLORIDE IVPB ONE (10:00)
[2019-05-12] MEDS ORDERED: POTASSIUM PHOSPHATE IVPB ONE (10:00)
--- NOTE | 2019-05-12 11:20 | CONS ---
Consult Date/Type/Reason Admit Date/Time May 07, 2019 at 18:29 Initial Consult Date Type of Consult Pulmonary Date/Time of Note DATE: 05/12/19 TIME: 11:16 Subjective Patient on CPAP trial this morning. Tolerated safely and was extubated. Objective Vital Signs Date Temp Pulse Resp B/P (MAP) Pulse Ox O2 O2 Flow FiO2 Time Delivery Rate 05/12/19 74 30 112/57 100 Mechanical 09:00 (75) Ventilator 05/12/19 99.0 08:00 05/12/19 30 05:03 Intake and Output 05/11/19 05/11/19 05/12/19 1515:00 23:00 07:00 IntakeIntake Total 1051.0 ml 1873.196 ml 2092.737 ml OutputOutput Total 960 ml 675 ml 700 ml BalanceBalance 91.0 ml 1198.196 ml 1392.737 ml Exam PHYSICAL EXAMINATION: VITAL SIGNS: HEENT: Pupils are equal and reactive to light, no safely extubated NECK: Supple, no JVD noted, no cervical adenopathy noted. LUNGS: Fair breath sounds bilaterally. CARDIOVASCULAR: S1, S2 normal. ABDOMEN: Soft, nontender. No megaly or masses noted. EXTREMITIES: No clubbing, cyanosis, or edema noted. Left below-knee amputation noted. NEUROLOGICAL: Currently sedated on the vent. Vent Setting Ventilator Support Mode: AC Fraction of Inspired Oxygen pe: 30 Positive End Expiratory Pressu: 5.0 Results/Medications Result Diagram: 05/12/19 0450 05/12/19 0450 Results 24 hrs Laboratory Tests Test 05/11/19 11:56 05/11/19 11:57 05/11/19 13:08 05/11/19 14:01 Potassium Level 2.4 *L Bedside Glucose 165 135 157 Test 05/11/19 14:57 05/11/19 16:12 05/11/19 17:26 05/11/19 18:47 Bedside Glucose 144 147 162 171 Test 05/11/19 20:00 05/11/19 20:08 05/11/19 21:23 05/11/19 22:10 Bedside Glucose 208 173 187 Potassium Level 4.0 Test 05/11/19 23:43 05/12/19 00:21 05/12/19 01:09 05/12/19 02:13 Bedside Glucose 183 183 161 145 Test 05/12/19 03:02 05/12/19 04:09 05/12/19 04:50 05/12/19 05:00 Bedside Glucose 120 162 White Blood 10.6 Count Red Blood Count 3.23 L Hemoglobin 8.0 L Hematocrit 23.5 L Mean 72.8 L Corpuscular Volume Mean 24.8 L Corpuscular Hemoglobin Mean 34.0 Corpuscular Hemoglobin Conc ent Red Cell 15.3 H Distribution Width Platelet Count 208 Mean Platelet 11.6 H Volume Immature 2.600 H Granulocytes % Neutrophils % Segmented 38 L Neutrophils % (Manual) Band 39 H Neutrophils % (Manual) Lymphocytes % Lymphocytes % 17 (Manual) Monocytes % Monocytes % 4 (Manual) Eosinophils % Basophils % Metamyelocytes 2 H % (manual) Nucleated Red 1 H Blood Cells % Immature 0.270 H Granulocytes # Neutrophils # Neutrophils # 4.5 (Manual) Band 4.1 H Neutrophils # Lymphocytes 1.8 (Manual) Lymphocytes # Monocytes # Monocytes # 0.4 (Manual) Eosinophils # Basophils # Metamyelocytes 0.2 H # Nucleated Red Blood Cells # Toxic 1+ Granulation Platelet NORMAL Estimate Giant Platelets 1 H Anisocytosis 1+ Microcytosis 1+ Sodium Level 148 H Potassium Level 4.0 Chloride Level 125 H Carbon Dioxide 21 Level Anion Gap 2 L Blood Urea 18 Nitrogen Creatinine 0.70 Est Glomerular > 60 Filtrat Rate mL/min Glucose Level 148 # Calcium Level 8.1 L Phosphorus 0.6 L Level Magnesium Level 1.8 Blood Gas Blood Specimen arterial Source Arterial Blood 05/12/2019 4:50 Date Drawn :22 AM Arterial Blood 7.576 *H pH (Temp corrected ) Arterial Blood 21.7 L pCO2 (Temp correct) Arterial Blood 148.7 H pO2 (Temp corrected ) Arterial Blood 19.7 L HCO3 Arterial Blood -1.8 Base Excess Arterial Blood 98.5 H Oxygen Saturati on Benedict Test ACCEPTAB Arterial Blood Right Radial Gas Puncture Site Arterial 0.3 Blood Carboxyhe moglobin Arterial Blood 0.4 Methemoglobin Blood Gas A-a 39.7 H O2 Differential Oxyhemoglobin 97.8 Percent Blood Gas 37.0 Temperature Blood Gas 20.0 Respiration Rate Blood Gas 30 Actual Respiration Rat e Blood Gas VENT - AC Modality FiO2 30.0 Blood Gas Tidal 500.0 Volume Blood Gas Low 5.0 PEEP Setting Blood Gas 23.0 Inspiratory Pressure Blood Gas J.Relos Critical Value Read Back Blood Gas S.H. Notified Whom Blood Gas 05/12/2019 5:00 Notified Time :41 AM Test 05/12/19 05:04 05/12/19 06:04 05/12/19 07:32 05/12/19 08:12 Bedside Glucose 124 117 182 171 Test 05/12/19 08:59 05/12/19 09:13 05/12/19 10:00 05/12/19 10:05 Bedside Glucose 169 198 Lab Scanned REFERENCE LAB Report Blood Gas Blood arterial Specimen Source Arterial Blood 05/12/2019 10:04 Date Drawn :36 AM Arterial Blood 7.537 H pH (Temp corrected ) Arterial Blood 25.7 L pCO2 (Temp correct) Arterial Blood 102.4 H pO2 (Temp corrected ) Arterial Blood 21.3 L HCO3 Arterial Blood 0.4 Base Excess Benedict Test ACCEPTAB Arterial Blood Right Radial Gas Puncture Site Blood Gas A-a 81.3 H O2 Differential Blood Gas 37.0 Temperature Blood Gas 37 Actual Respiration Rat e Blood Gas VENT - CPAP Modality FiO2 30.0 Blood Gas Low 5.0 PEEP Setting Blood Gas 10 Pressure Support Blood Gas TM Notified Whom Blood Gas 05/12/2019 10:13 Notified Time :20 AM Medications Current Medications IV Flush (NS 10 ml) 10 ml PRN PRN IV IV PROTOCOL; Start 05/07/19 at 17:30 Dextrose (D50w Syringe) 50 ml Q15M PRN IV For BS 50 or less; Start 05/07/19 at 19:30 Dextrose (D50w Syringe) 25 ml Q15M PRN IV BS between 50-70; Start 05/07/19 at 19:30 Miscellaneous Information (* Miscellaneous Pharmacy Order) HYPOGLYCEMIA TREATMENT HYPOGLYCEM PROTOCOL PRN XX Hypoglycemia (BS < 70); Start 05/07/19 at 19:30 Potassium Chloride/Sodium Chloride 1,000 ml @ 0 mls/hr Q0M IV ; Start 05/07/19 at 19:27 Ondansetron HCl (Zofran Inj) 4 mg Q4H PRN IV nausea; Start 05/07/19 at 20:00 Morphine Sulfate (morphine) 4 mg Q4H PRN IV pain; Start 05/07/19 at 20:00 Propofol 100 ml @ 1.909 mls/ hr Q12H IV Last administered on 05/12/19 07:19; Admin Dose 13.364 MLS/HR; Start 05/07/19 at 23:45 Miscellaneous Information (* Miscellaneous Pharmacy Order) Treatment of Hypoglycemia: 1.BG 51... Per protocol XX ; Start 05/08/19 at 00:30 Dextrose (D50w Syringe) 25 ml Q15M PRN IV .DECREASED GLUCOSE; Start 05/08/19 at 00:30 Dextrose (D50w Syringe) 50 ml Q15M PRN IV .DECREASED GLUCOSE; Start 05/08/19 at 00:30 Norepinephrine 250 ml @ 1.875 mls/ hr TITRATE IV Last administered on 05/08/19 22:27; Admin Dose 11.25 MLS/HR; Start 05/08/19 at 01:00 Acetaminophen (Tylenol Liquid) 650 mg Q4H PRN NGT MILD PAIN(1-3)OR ELEVATED TEMP Last administered on 05/11/19 21:56; Admin Dose 650 MG; Start 05/08/19 at 10:00 Potassium Chloride 50 ml @ 50 mls/hr K PROTOCOL PRN IVPB PENDING LAB VALUE; Start 05/08/19 at 10:00 Famotidine (Pepcid Iv) 20 mg BID IV Last administered on 05/12/19 09:38; Admin Dose 20 MG; Start 05/08/19 at 12:30 Enoxaparin Sodium (Lovenox) 40 mg DAILY SC Last administered on 05/12/19 09:38; Admin Dose 40 MG; Start 05/09/19 at 09:00 Collagenase (Santyl) 1 applic BID TOP Last administered on 05/12/19 09:30; Admin Dose 1 APPLIC; Start 05/08/19 at 21:00 Sodium Hypochlorite (Dakins Diluted (40)) 1 applic BID TP Last administered on 05/12/19 09:00; Admin Dose 1 APPLIC; Start 05/08/19 at 21:00 Fentanyl 100 ml @ 2.5 mls/hr TITRATE IV Last administered on 05/11/19 20:13; Admin Dose 7.5 MLS/HR; Start 05/10/19 at 09:30 Ceftriaxone Sodium 50 ml @ 100 mls/hr Q24H IVPB Last administered on 05/11/19 10:46; Admin Dose 100 MLS/HR; Start 05/10/19 at 11:00 Diagnostic Test (Pha) (Accu-Chek) 1 ea Q1H XX Last administered on 05/12/19at 10:05; Admin Dose 1 EA; Start 05/10/19 at 11:00 Insulin Human Regular 100 unit/ Sodium Chloride 100 ml @ 0 mls/hr PER PROTOCOL IV Last administered on 05/11/19 21:55; Admin Dose 7 MLS/HR; Start 05/10/19 at 12:00 Phenylephrine HCl 250 ml @ 75 mls/hr TITRATE IV ; Start 05/10/19 at 12:00 Mupirocin (Bactroban) 1 applic BID TOP Last administered on 05/11/19 21:54; Admin Dose 1 APPLIC; Start 05/11/19 at 21:00 Ascorbic Acid (Vitamin C) 500 mg DAILY NGT Last administered on 05/12/19 09:31; Admin Dose 500 MG; Start 05/12/19 at 09:00 Zinc Sulfate (Zinc Sulfate) 220 mg DAILY NGT Last administered on 05/12/19at 09:31; Admin Dose 220 MG; Start 05/12/19 at 09:00 Docusate Sodium (Colace Liquid Cup) 100 mg QAM GTB Last administered on 05/12/19 09:30; Admin Dose 100 MG; Start 05/12/19 at 09:00 Potassium Phosphate 60 mm/ Sodium Chloride 520 ml @ 43.333 mls/ hr ONCE ONCE IVPB Last administered on 05/12/19at 10:53; Admin Dose 43.333 MLS/HR; Start 05/12/19 at 10:00; Stop 05/12/19 at 21:59 Assessment/Plan Hospital Course (Demo Recall) Assessment and recommendations; 1. Patient admitted with DKA leading to respiratory failure requiring intubation. Now safely extubated. 2. Active intravenous drug use. 3. Staph aureus bacteremia. 4. 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 5. Possible endocarditis with septic embolism to lungs. 6. Possibly some element of opiate withdrawal. Plan 1. Trial of Precedex for agitation 2. Continue antibiotics 3. Free water and replace potassium 4. Cardiology recommendations regarding endocarditis work-up. 5. Continue insulin drip for DKA 6. Speech therapy evaluation post extubation Case discussed with family at bedside Critical care time 40 minutes DEVIN HAGER MD, [facility] May 12, 2019 11:20
--- NOTE | 2019-05-12 13:01 | PN ---
Date/Time of Note Date/Time of Note DATE: 05/12/19 TIME: 12:58 Subjective Patient was extubated. Alert and oriented to place and person. No complaints Objective Vitals Vital Signs Date Temp Pulse Resp B/P (MAP) Pulse Ox O2 O2 Flow FiO2 Time Delivery Rate 05/12/19 105 12:00 05/12/19 100 5.0 11:05 05/12/19 30 09:06 05/12/19 27 09:05 05/12/19 112/57 Mechanical 09:00 (75) Ventilator 05/12/19 99.0 08:00 Intake and Output 05/11/19 05/11/19 05/12/19 1414:59 22:59 06:59 IntakeIntake Total 918.383 ml 1874.422 ml 2094.237 ml OutputOutput Total 985 ml 710 ml 650 ml BalanceBalance -66.617 ml 1164.422 ml 1444.237 ml Neck is supple Lungs with diffuse rhonchi Cardiac regular rate and rhythm Abdomen soft nontender nondistended normoactive bowel sounds No edema Moves all extremities Results Result Diagram: 05/12/19 0450 05/12/19 0450 Medications Medications Current Medications IV Flush (NS 10 ml) 10 ml PRN PRN IV IV PROTOCOL; Start 05/07/19 at 17:30 Dextrose (D50w Syringe) 50 ml Q15M PRN IV For BS 50 or less; Start 05/07/19 at 19:30 Dextrose (D50w Syringe) 25 ml Q15M PRN IV BS between 50-70; Start 05/07/19 at 19:30 Miscellaneous Information (* Miscellaneous Pharmacy Order) HYPOGLYCEMIA TREATMENT HYPOGLYCEM PROTOCOL PRN XX Hypoglycemia (BS < 70); Start 05/07/19 at 19:30 Potassium Chloride/Sodium Chloride 1,000 ml @ 0 mls/hr Q0M IV ; Start 05/07/19 at 19:27 Ondansetron HCl (Zofran Inj) 4 mg Q4H PRN IV nausea; Start 05/07/19 at 20:00 Morphine Sulfate (morphine) 4 mg Q4H PRN IV pain; Start 05/07/19 at 20:00 Propofol 100 ml @ 1.909 mls/ hr Q12H IV Last administered on 05/12/19at 07:19; Admin Dose 13.364 MLS/HR; Start 05/07/19 at 23:45 Miscellaneous Information (* Miscellaneous Pharmacy Order) Treatment of Hypoglycemia: 1.BG 51... Per protocol XX ; Start 05/08/19 at 00:30 Dextrose (D50w Syringe) 25 ml Q15M PRN IV .DECREASED GLUCOSE; Start 05/08/19 at 00:30 Dextrose (D50w Syringe) 50 ml Q15M PRN IV .DECREASED GLUCOSE; Start 05/08/19 at 00:30 Norepinephrine 250 ml @ 1.875 mls/ hr TITRATE IV Last administered on 05/08/19 22:27; Admin Dose 11.25 MLS/HR; Start 05/08/19 at 01:00 Acetaminophen (Tylenol Liquid) 650 mg Q4H PRN NGT MILD PAIN(1-3)OR ELEVATED TEMP Last administered on 05/11/19 21:56; Admin Dose 650 MG; Start 05/08/19 at 10:00 Potassium Chloride 50 ml @ 50 mls/hr K PROTOCOL PRN IVPB PENDING LAB VALUE; Sta rt 05/08/19 at 10:00 Famotidine (Pepcid Iv) 20 mg BID IV Last administered on 05/12/19 09:38; Admin Dose 20 MG; Start 05/08/19 at 12:30 Enoxaparin Sodium (Lovenox) 40 mg DAILY SC Last administered on 05/12/19 09:38; Admin Dose 40 MG; Start 05/09/19 at 09:00 Collagenase (Santyl) 1 applic BID TOP Last administered on 05/12/19 09:30; Admin Dose 1 APPLIC; Start 05/08/19 at 21:00 Sodium Hypochlorite (Dakins Diluted (/40)) 1 applic BID TP Last administered on 05/12/19 09:00; Admin Dose 1 APPLIC; Start 05/08/19 at 21:00 Fentanyl 100 ml @ 2.5 mls/hr TITRATE IV Last administered on 05/11/19 20:13; Admin Dose 7.5 MLS/HR; Start 05/10/19 at 09:30 Ceftriaxone Sodium 50 ml @ 100 mls/hr Q24H IVPB Last administered on 05/11/19at 10:46; Admin Dose 100 MLS/HR; Start 05/10/19 at 11:00 Diagnostic Test (Pha) (Accu-Chek) 1 ea Q1H XX Last administered on 05/12/19at 12:09; Admin Dose 1 EA; Start 05/10/19 at 11:00 Insulin Human Regular 100 unit/ Sodium Chloride 100 ml @ 0 mls/hr PER PROTOCOL IV Last administered on 05/11/19 21:55; Admin Dose 7 MLS/HR; Start 05/10/19 at 12:00 Phenylephrine HCl 250 ml @ 75 mls/hr TITRATE IV ; Start 05/10/19 at 12:00 Mupirocin (Bactroban) 1 applic BID TOP Last administered on 05/11/19 21:54; Admin Dose 1 APPLIC; Start 05/11/19 at 21:00 Ascorbic Acid (Vitamin C) 500 mg DAILY NGT Last administered on 05/12/19at 09:31; Admin Dose 500 MG; Start 05/12/19 at 09:00 Zinc Sulfate (Zinc Sulfate) 220 mg DAILY NGT Last administered on 05/12/19at 09:31; Admin Dose 220 MG; Start 05/12/19 at 09:00 Docusate Sodium (Colace Liquid Cup) 100 mg QAM GTB Last administered on 05/12/19at 09:30; Admin Dose 100 MG; Start 05/12/19 at 09:00 Potassium Phosphate 60 mm/ Sodium Chloride 520 ml @ 43.333 mls/ hr ONCE ONCE IVPB Last administered on 05/12/19at 10:53; Admin Dose 43.333 MLS/HR; Start 05/12/19 at 10:00; Stop 05/12/19 at 21:59 Albuterol/ Ipratropium (Duoneb) 3 ml Q6H RESP THERAPY N ; Start 05/12/19 at 14:00 VTE Prophylaxis Risk score (from Nsg)>0 risk: 7 SCD applied (from Nsg): Yes Lines/Catheters IV Catheter Type: Saline Lock Goldman in Place: No Assessment/Plan Assessment/Plan 49-year-old male with acute respiratory failure, status post extubation Bilateral pneumonia Bacteremia DKA, resolved History of IV drug abuse 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
[2019-05-12] MEDS: CEFTRIAXONE 2 GM/50 ML (PMX) 50 ML IVPB SCH (13:19)
[2019-05-12] MEDS ORDERED: GLUCOSE GEL 15 GRAM TUBE PO PRN ×2 (13:30)
[2019-05-12] MEDS ORDERED: GLUCAGON 1 MG INJ IM PRN (13:30)
[2019-05-12] MEDS ORDERED: GLUCOSE GEL 15 GRAM TUBE BUCCAL PRN (13:30)
[2019-05-12] MEDS ORDERED: DEXTROSE 50% 50 ML SYRINGE IV PRN ×2 (13:30)
[2019-05-12] MEDS: INSULIN GLARGINE [LANTus] (100 UNITS/ML) SYG SC SCH ×2 (14:17→20:23)
[2019-05-12] MEDS: ALBUTEROL/IPRATROPIUM (NEB) 3 ML AMP HHN SCH ×2 (15:10→20:06)
--- NOTE | 2019-05-12 17:27 | CONS ---
Assessment/Plan Assessment/Plan Hospital Course (Demo Recall) Respiratory failure status post extubation Preserved left ventricular ejection fraction DKA Sepsis Staph aureus bacteremia History of IV drug use ELIE no vegetation seen Antibiotics as per infectious disease Consultation Date/Type/Reason Admit Date/Time May 07, 2019 at 18:29 Initial Consult Date Type of Consult Cardiology Date/Time of Note DATE: 05/12/19 TIME: 17:25 24 HR Interval Summary Free Text/Dictation No shortness of breath, palpitations Exam/Review of Systems Vital Signs Vitals Vital Signs Date Temp Pulse Resp B/P (MAP) Pulse Ox O2 O2 Flow FiO2 Time Delivery Rate 05/12/19 100 5.0 16:18 05/12/19 99.0 128 36 148/95 Nasal 16:00 (112) Cannula 05/12/19 30 09:06 Intake and Output 05/11/19 05/11/19 05/12/19 1515:00 23:00 07:00 IntakeIntake Total 1051.0 ml 1873.196 ml 2092.737 ml OutputOutput Total 960 ml 675 ml 700 ml BalanceBalance 91.0 ml 1198.196 ml 1392.737 ml Exam Constitutional: alert (Following commands, family bedside) Head: normocephalic Respiratory: other (Coarse breath sounds bilaterally, no wheezing) Cardiovascular: regular rate and rhythm (S1-S2 heard) Gastrointestinal: soft, non-tender, bowel sounds Extremities: other (No edema) Labs Result Diagram: 05/12/19 0450 05/12/19 1442 Results 24hrs Laboratory Tests Test 05/11/19 17:26 05/11/19 18:47 05/11/19 20:00 05/11/19 20:08 Bedside Glucose 162 171 208 Potassium Level 4.0 Test 05/11/19 21:23 05/11/19 22:10 05/11/19 23:43 05/12/19 00:21 Bedside Glucose 173 187 183 183 Test 05/12/19 01:09 05/12/19 02:13 05/12/19 03:02 05/12/19 04:09 Bedside Glucose 161 145 120 162 Test 05/12/19 04:50 05/12/19 05:00 05/12/19 05:04 05/12/19 06:04 White Blood 10.6 Count Red Blood Count 3.23 L Hemoglobin 8.0 L Hematocrit 23.5 L Mean 72.8 L Corpuscular Volume Mean 24.8 L Corpuscular Hemoglobin Mean 34.0 Corpuscular Hemoglobin Conc ent Red Cell 15.3 H Distribution Width Platelet Count 208 Mean Platelet 11.6 H Volume Immature 2.600 H Granulocytes % Neutrophils % Segmented 38 L Neutrophils % (Manual) Band 39 H Neutrophils % (Manual) Lymphocytes % Lymphocytes % 17 (Manual) Monocytes % Monocytes % 4 (Manual) Eosinophils % Basophils % Metamyelocytes 2 H % (manual) Nucleated Red 1 H Blood Cells % Immature 0.270 H Granulocytes # Neutrophils # Neutrophils # 4.5 (Manual) Band 4.1 H Neutrophils # Lymphocytes 1.8 (Manual) Lymphocytes # Monocytes # Monocytes # 0.4 (Manual) Eosinophils # Basophils # Metamyelocytes 0.2 H # Nucleated Red Blood Cells # Toxic 1+ Granulation Platelet NORMAL Estimate Giant Platelets 1 H Anisocytosis 1+ Microcytosis 1+ Sodium Level 148 H Potassium Level 4.0 Chloride Level 125 H Carbon Dioxide 21 Level Anion Gap 2 L Blood Urea 18 Nitrogen Creatinine 0.70 Est Glomerular > 60 Filtrat Rate mL/min Glucose Level 148 # Calcium Level 8.1 L Phosphorus 0.6 L Level Magnesium Level 1.8 Blood Gas Blood arterial Specimen Source Arterial Blood 05/12/2019 4:50: Date Drawn 22 AM Arterial Blood 7.576 *H pH (Temp corrected ) Arterial Blood 21.7 L pCO2 (Temp correct) Arterial Blood 148.7 H pO2 (Temp corrected ) Arterial Blood 19.7 L HCO3 Arterial Blood -1.8 Base Excess Arterial Blood 98.5 H Oxygen Saturati on Benedict Test ACCEPTAB Arterial Blood Right Radial Gas Puncture Site Arterial 0.3 Blood Carboxyhe moglobin Arterial Blood 0.4 Methemoglobin Blood Gas A-a 39.7 H O2 Differential Oxyhemoglobin 97.8 Percent Blood Gas 37.0 Temperature Blood Gas 20.0 Respiration Rate Blood Gas 30 Actual Respiration Rat e Blood Gas VENT - AC Modality FiO2 30.0 Blood Gas Tidal 500.0 Volume Blood Gas Low 5.0 PEEP Setting Blood Gas 23.0 Inspiratory Pressure Blood Gas J.Relos Critical Value Read Back Blood Gas S.H. Notified Whom Blood Gas 05/12/2019 5:00: Notified Time 41 AM Bedside Glucose 124 117 Test 05/12/19 07:32 05/12/19 08:12 05/12/19 08:59 05/12/19 09:13 Bedside Glucose 182 171 169 Lab Scanned REFERENCE LAB Report Test 05/12/19 10:00 05/12/19 10:05 05/12/19 11:34 05/12/19 12:07 Blood Gas Blood arterial Specimen Source Arterial Blood 05/12/2019 10:04 Date Drawn :36 AM Arterial Blood 7.537 H pH (Temp corrected ) Arterial Blood 25.7 L pCO2 (Temp correct) Arterial Blood 102.4 H pO2 (Temp corrected ) Arterial Blood 21.3 L HCO3 Arterial Blood 0.4 Base Excess Benedict Test ACCEPTAB Arterial Blood Right Radial Gas Puncture Site Blood Gas A-a 81.3 H O2 Differential Blood Gas 37.0 Temperature Blood Gas 37 Actual Respiration Rat e Blood Gas VENT - CPAP Modality FiO2 30.0 Blood Gas Low 5.0 PEEP Setting Blood Gas 10 Pressure Support Blood Gas TM Notified Whom Blood Gas 05/12/2019 10:13 Notified Time :20 AM Bedside Glucose 198 98 125 Test 05/12/19 13:22 05/12/19 14:12 05/12/19 14:42 05/12/19 16:27 Bedside Glucose 124 130 112 Sodium Level 151 H Potassium Level 3.5 Chloride Level 122 H Carbon Dioxide 23 Level Anion Gap 6 Blood Urea 16 Nitrogen Creatinine 0.71 Est Glomerular > 60 Filtrat Rate mL/min Glucose Level 141 Calcium Level 8.6 Phosphorus 2.7 # Level Medications Medications Current Medications IV Flush (NS 10 ml) 10 ml PRN PRN IV IV PROTOCOL; Start 05/07/19 at 17:30 Potassium Chloride/Sodium Chloride 1,000 ml @ 0 mls/hr Q0M IV ; Start 05/07/19 at 19:27 Ondansetron HCl (Zofran Inj) 4 mg Q4H PRN IV nausea; Start 05/07/19 at 20:00 Morphine Sulfate (morphine) 4 mg Q4H PRN IV pain; Start 05/07/19 at 20:00 Acetaminophen (Tylenol Liquid) 650 mg Q4H PRN NGT MILD PAIN(1-3)OR ELEVATED TEMP Last administered on 05/11/19at 21:56; Admin Dose 650 MG; Start 05/08/19 at 10:00 Potassium Chloride 50 ml @ 50 mls/hr K PROTOCOL PRN IVPB PENDING LAB VALUE; Start 05/08/19 at 10:00 Famotidine (Pepcid Iv) 20 mg BID IV Last administered on 05/12/19 09:38; Admin Dose 20 MG; Start 05/08/19 at 12:30 Enoxaparin Sodium (Lovenox) 40 mg DAILY SC Last administered on 05/12/19 09:38; Admin Dose 40 MG; Start 05/09/19 at 09:00 Collagenase (Santyl) 1 applic BID TOP Last administered on 05/12/19 09:30; Admin Dose 1 APPLIC; Start 05/08/19 at 21:00 Sodium Hypochlorite (Dakins Diluted ()) 1 applic BID TP Last administered on 05/12/19 09:00; Admin Dose 1 APPLIC; Start 05/08/19 at 21:00 Ceftriaxone Sodium 50 ml @ 100 mls/hr Q24H IVPB Last administered on 05/12/19 13:19; Admin Dose 100 MLS/HR; Start 05/10/19 at 11:00 Phenylephrine HCl 250 ml @ 75 mls/hr TITRATE IV ; Start 05/10/19 at 12:00 Mupirocin (Bactroban) 1 applic BID TOP Last administered on 05/11/19 21:54; Admin Dose 1 APPLIC; Start 05/11/19 at 21:00 Ascorbic Acid (Vitamin C) 500 mg DAILY NGT Last administered on 05/12/19 09:31; Admin Dose 500 MG; Start 05/12/19 at 09:00 Zinc Sulfate (Zinc Sulfate) 220 mg DAILY NGT Last administered on 05/12/19 09:31; Admin Dose 220 MG; Start 05/12/19 at 09:00 Docusate Sodium (Colace Liquid Cup) 100 mg QAM GTB Last administered on 05/12/19 09:30; Admin Dose 100 MG; Start 05/12/19 at 09:00 Potassium Phosphate 60 mm/ Sodium Chloride 520 ml @ 43.333 mls/ hr ONCE ONCE IVPB Last administered on 05/12/19at 10:53; Admin Dose 43.333 MLS/HR; Start 05/12/19 at 10:00; Stop 05/12/19 at 21:59 Albuterol/ Ipratropium (Duoneb) 3 ml Q6H RESP THERAPY HHN Last administered on 7/17/19at 15:10; Admin Dose 3 ML; Start 05/12/19 at 14:00 Insulin Aspart (Novolog Insulin Pen) 5 unit WITH MEALS SC ; Start 05/12/19 at 17:35 Insulin Glargine (Lantus) 8 units BID@0800,2000 SC Last administered on 05/12/19at 14:17; Admin Dose 8 UNITS; Start 05/12/19 at 14:00 Miscellaneous Information 1 ea NOTE XX ; Start 05/12/19 at 13:30 Glucose (Glutose) 15 gm Q15M PRN PO DECREASED GLUCOSE; Start 05/12/19 at 13:30 Glucose (Glutose) 22.5 gm Q15M PRN PO DECREASED GLUCOSE; Start 05/12/19 at 13:30 Dextrose (D50w Syringe) 25 ml Q15M PRN IV DECREASED GLUCOSE; Start 05/12/19 at 13:30 Dextrose (D50w Syringe) 50 ml Q15M PRN IV DECREASED GLUCOSE; Start 05/12/19 at 13:30 Glucagon (Glucagen) 1 mg Q15M PRN IM DECREASED GLUCOSE; Start 05/12/19 at 13:30 Glucose (Glutose) 15 gm Q15M PRN BUCCAL DECREASED GLUCOSE; Start 05/12/19 at 13:30 Steven Masterson DO May 12, 2019 17:27
[2019-05-12] MEDS: INSULIN ASPART [NOVOLOG] 3 ML PEN SC SCH (17:35)
[2019-05-12] MEDS ORDERED: INSULIN GLARGINE [LANTus] (100 UNITS/ML) SYG SC SCH (20:00)
[2019-05-12] MEDS: MUPIROCIN 2% 22 GM OINT TOP SCH (20:36)
[2019-05-12] MEDS: ACETAMINOPHEN 650MG/20.3ML CUP NGT PRN (20:45)
[2019-05-13] VITALS (16 sets, daily range): BP systolic 134–159; BP diastolic 70–90; PULSE 78–113; RESP 18–35
[2019-05-13] MEDS: ALBUTEROL/IPRATROPIUM (NEB) 3 ML AMP HHN SCH ×3 (02:06→19:48)
[2019-05-13] MEDS: INSULIN ASPART [NOVOLOG] 3 ML PEN SC SCH ×5 (07:35→18:48)
[2019-05-13] MEDS: DOCUSATE SODIUM 10 MG/ML (10ML CUP) GTB SCH (08:06)
[2019-05-13] MEDS: ASCORBIC ACID 500 MG TAB NGT SCH (09:43)
[2019-05-13] MEDS: ZINC SULFATE 220 MG CAP NGT SCH (09:43)
[2019-05-13] MEDS: MUPIROCIN 2% 22 GM OINT TOP SCH (09:44)
[2019-05-13] MEDS: COLLAGENASE 5 GM (UD JAR) TOP SCH (09:44)
[2019-05-13] MEDS: DAKINS 0.0125%(1/40) 473 ML SOLUTION TP SCH (09:44)
[2019-05-13] MEDS: INSULIN GLARGINE [LANTus] (100 UNITS/ML) SYG SC SCH (09:45)
[2019-05-13] MEDS: ENOXAPARIN 40 MG/0.4 ML SYG SC SCH (09:46)
--- NOTE | 2019-05-13 10:18 | PN ---
Date/Time of Note Date/Time of Note DATE: 05/13/19 TIME: 10:16 Subjective Feels better. Slow mentation. Follows all commands Objective Vitals Vital Signs Date Temp Pulse Resp B/P (MAP) Pulse Ox O2 O2 Flow FiO2 Time Delivery Rate 05/13/19 97 22 97 21 08:20 05/13/19 147/78 Nasal 06:00 (101) Cannula 05/13/19 98.4 04:00 05/13/19 2.0 02:06 Intake and Output 05/12/19 05/12/19 05/13/19 1515:00 23:00 07:00 IntakeIntake Total 661.011 ml 804.123 ml OutputOutput Total 2690 ml 2160 ml 760 ml BalanceBalance -2028.989 ml -1355.877 ml -760 ml Bilateral rhonchi Regular rate and rhythm Soft nontender nondistended normoactive bowel sounds No edema Nonfocal Results Result Diagram: 05/12/19 0450 05/12/19 1442 Medications Medications Current Medications IV Flush (NS 10 ml) 10 ml PRN PRN IV IV PROTOCOL; Start 05/07/19 at 17:30 Ondansetron HCl (Zofran Inj) 4 mg Q4H PRN IV nausea; Start 05/07/19 at 20:00 Morphine Sulfate (morphine) 4 mg Q4H PRN IV pain; Start 05/07/19 at 20:00 Acetaminophen (Tylenol Liquid) 650 mg Q4H PRN NGT MILD PAIN(1-3)OR ELEVATED TEMP Last administered on 05/12/19at 20:45; Admin Dose 650 MG; Start 05/08/19 at 10:00 Potassium Chloride 50 ml @ 50 mls/hr K PROTOCOL PRN IVPB PENDING LAB VALUE; Start 05/08/19 at 10:00 Famotidine (Pepcid Iv) 20 mg BID IV Last administered on 05/12/19at 20:44; Admin Dose 20 MG; Start 05/08/19 at 12:30 Enoxaparin Sodium (Lovenox) 40 mg DAILY SC Last administered on 05/13/19at 09:46; Admin Dose 40 MG; Start 05/09/19 at 09:00 Collagenase (Santyl) 1 applic BID TOP Last administered on 05/13/19at 09:44; Admin Dose 1 APPLIC; Start 05/08/19 at 21:00 Sodium Hypochlorite (Dakins Diluted ()) 1 applic BID TP Last administered on 05/13/19at 09:44; Admin Dose 1 APPLIC; Start 05/08/19 at 21:00 Ceftriaxone Sodium 50 ml @ 100 mls/hr Q24H IVPB Last administered on 05/12/19 13:19; Admin Dose 100 MLS/HR; Start 05/10/19 at 11:00 Phenylephrine HCl 250 ml @ 75 mls/hr TITRATE IV ; Start 05/10/19 at 12:00 Mupirocin (Bactroban) 1 applic BID TOP Last administered on 05/13/19 09:44; Admin Dose 1 APPLIC; Start 05/11/19 at 21:00 Ascorbic Acid (Vitamin C) 500 mg DAILY NGT Last administered on 05/13/19 09:43; Admin Dose 500 MG; Start 05/12/19 at 09:00 Zinc Sulfate (Zinc Sulfate) 220 mg DAILY NGT Last administered on 05/13/19 09:43; Admin Dose 220 MG; Start 05/12/19 at 09:00 Docusate Sodium (Colace Liquid Cup) 100 mg QAM GTB Last administered on 05/12/19 09:30; Admin Dose 100 MG; Start 05/12/19 at 09:00 Albuterol/ Ipratropium (Duoneb) 3 ml Q6H RESP THERAPY HHN Last administered on 05/13/19 08:20; Admin Dose 3 ML; Start 05/12/19 at 14:00 Insulin Aspart (Novolog Insulin Pen) 5 unit WITH MEALS SC ; Start 05/12/19 at 17:35 Insulin Glargine (Lantus) 8 units BID@0800,2000 SC Last administered on 04/26 09:45; Admin Dose 8 UNITS; Start 05/12/19 at 14:00 Miscellaneous Information 1 ea NOTE XX ; Start 05/12/19 at 13:30 Glucose (Glutose) 15 gm Q15M PRN PO DECREASED GLUCOSE; Start 05/12/19 at 13:30 Glucose (Glutose) 22.5 gm Q15M PRN PO DECREASED GLUCOSE; Start 05/12/19 at 13:30 Dextrose (D50w Syringe) 25 ml Q15M PRN IV DECREASED GLUCOSE; Start 05/12/19 at 13:30 Dextrose (D50w Syringe) 50 ml Q15M PRN IV DECREASED GLUCOSE; Start 05/12/19 at 13:30 Glucagon (Glucagen) 1 mg Q15M PRN IM DECREASED GLUCOSE; Start 05/12/19 at 13:30 Glucose (Glutose) 15 gm Q15M PRN BUCCAL DECREASED GLUCOSE; Start 05/12/19 at 13:30 VTE Prophylaxis Risk score (from Ns)>0 risk: 9 SCD applied (from Ns): Yes Lines/Catheters IV Catheter Type: Saline Lock Goldman in Place: No Assessment/Plan Assessment/Plan 49-year-old male with acute respiratory failure, status post extubation Bilateral pneumonia Coag negative staph bacteremia History of IV drug abuse Anemia of chronic disease 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
--- NOTE | 2019-05-13 10:59 | CONS ---
Consult Date/Type/Reason Admit Date/Time May 07, 2019 at 18:29 Initial Consult Date Type of Consult Pulmonary Date/Time of Note DATE: 05/13/19 TIME: 10:58 Subjective Patient appears comfortable this morning no respiratory distress safely extubated yesterday awake alert wants to eat. Objective Vital Signs Date Temp Pulse Resp B/P (MAP) Pulse Ox O2 O2 Flow FiO2 Time Delivery Rate 05/13/19 97 22 97 21 08:20 05/13/19 147/78 Nasal 06:00 (101) Cannula 05/13/19 98.4 04:00 05/13/19 2.0 02:06 Intake and Output 05/12/19 05/12/19 05/13/19 1515:00 23:00 07:00 IntakeIntake Total 661.011 ml 804.123 ml OutputOutput Total 2690 ml 2160 ml 760 ml BalanceBalance -2028.989 ml -1355.877 ml -760 ml Exam PHYSICAL EXAMINATION: VITAL SIGNS: HEENT: Pupils are equal and reactive to light, no safely extubated NECK: Supple, no JVD noted, no cervical adenopathy noted. LUNGS: Fair breath sounds bilaterally. CARDIOVASCULAR: S1, S2 normal. ABDOMEN: Soft, nontender. No megaly or masses noted. EXTREMITIES: No clubbing, cyanosis, or edema noted. Left below-knee amputation noted. Upper extremity amputation NEUROLOGICAL: Bilateral lower extremity weakness Vent Setting Ventilator Support Mode: CPAP, PS Fraction of Inspired Oxygen pe: 21 Positive End Expiratory Pressu: 5.0 Results/Medications Result Diagram: 05/12/19 0450 05/12/19 1442 Results 24 hrs Laboratory Tests Test 05/12/19 11:34 05/12/19 12:07 05/12/19 13:22 05/12/19 14:12 Bedside Glucose 98 125 124 130 Test 05/12/19 14:42 05/12/19 16:27 05/12/19 20:22 05/13/19 09:42 Sodium Level 151 H Potassium Level 3.5 Chloride Level 122 H Carbon Dioxide Level 23 Anion Gap 6 Blood Urea Nitrogen 16 Creatinine 0.71 Est Glomerular > 60 Filtrat Rate mL/min Glucose Level 141 Calcium Level 8.6 Phosphorus Level 2.7 # Bedside Glucose 112 202 250 H Medications Current Medications IV Flush (NS 10 ml) 10 ml PRN PRN IV IV PROTOCOL; Start 05/07/19 at 17:30 Ondansetron HCl (Zofran Inj) 4 mg Q4H PRN IV nausea; Start 05/07/19 at 20:00 Morphine Sulfate (morphine) 4 mg Q4H PRN IV pain; Start 05/07/19 at 20:00 Acetaminophen (Tylenol Liquid) 650 mg Q4H PRN NGT MILD PAIN(1-3)OR ELEVATED TEMP Last administered on 05/12/19 20:45; Admin Dose 650 MG; Start 05/08/19 at 10:00 Famotidine (Pepcid Iv) 20 mg BID IV Last administered on 05/12/19 20:44; Admin Dose 20 MG; Start 05/08/19 at 12:30 Enoxaparin Sodium (Lovenox) 40 mg DAILY SC Last administered on 05/13/19 09:46; Admin Dose 40 MG; Start 05/09/19 at 09:00 Collagenase (Santyl) 1 applic BID TOP Last administered on 05/13/19 09:44; Admin Dose 1 APPLIC; Start 05/08/19 at 21:00 Sodium Hypochlorite (Dakins Diluted (40)) 1 applic BID TP Last administered on 05/13/19 09:44; Admin Dose 1 APPLIC; Start 05/08/19 at 21:00 Ceftriaxone Sodium 50 ml @ 100 mls/hr Q24H IVPB Last administered on 05/12/19 13:19; Admin Dose 100 MLS/HR; Start 05/10/19 at 11:00 Mupirocin (Bactroban) 1 applic BID TOP Last administered on 05/13/19 09:44; Admin Dose 1 APPLIC; Start 05/11/19 at 21:00 Ascorbic Acid (Vitamin C) 500 mg DAILY NGT Last administered on 05/13/19 09:43; Admin Dose 500 MG; Start 05/12/19 at 09:00 Zinc Sulfate (Zinc Sulfate) 220 mg DAILY NGT Last administered on 05/13/19 09:43; Admin Dose 220 MG; Start 05/12/19 at 09:00 Docusate Sodium (Colace Liquid Cup) 100 mg QAM GTB Last administered on 05/12/19 09:30; Admin Dose 100 MG; Start 05/12/19 at 09:00 Albuterol/ Ipratropium (Duoneb) 3 ml Q6H RESP THERAPY HHN Last administered on 05/13/19at 08:20; Admin Dose 3 ML; Start 05/12/19 at 14:00 Insulin Aspart (Novolog Insulin Pen) 5 unit WITH MEALS SC ; Start 05/12/19 at 17:35 Insulin Glargine (Lantus) 8 units BID@0800,2000 SC Last administered on 05/13/19at 09:45; Admin Dose 8 UNITS; Start 05/12/19 at 14:00 Miscellaneous Information 1 ea NOTE XX ; Start 05/12/19 at 13:30 Glucose (Glutose) 15 gm Q15M PRN PO DECREASED GLUCOSE; Start 05/12/19 at 13:30 Glucose (Glutose) 22.5 gm Q15M PRN PO DECREASED GLUCOSE; Start 05/12/19 at 13:30 Dextrose (D50w Syringe) 25 ml Q15M PRN IV DECREASED GLUCOSE; Start 05/12/19 at 13:30 Dextrose (D50w Syringe) 50 ml Q15M PRN IV DECREASED GLUCOSE; Start 05/12/19 at 13:30 Glucagon (Glucagen) 1 mg Q15M PRN IM DECREASED GLUCOSE; Start 05/12/19 at 13:30 Glucose (Glutose) 15 gm Q15M PRN BUCCAL DECREASED GLUCOSE; Start 05/12/19 at 13:30 Diagnostic Test (Pha) (Accu-Chek) 1 ea 02 XX ; Start 05/14/19 at 02:00 Insulin Aspart (Novolog Insulin Pen) NOVOLOG *MODERATE* ALGORITHM WITH MEALS BEDTIME SC ; Start 05/13/19 at 11:30 Assessment/Plan Hospital Course (Demo Recall) assessment and recommendations; 1. Patient admitted with DKA leading to respiratory failure requiring intubation. Now safely extubated. 2. Active intravenous drug use. 3. Staph aureus bacteremia. Source unclear concerning for possible neck abscess 4. 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 5. Possible endocarditis with septic embolism to lungs. 6. Possibly some element of opiate withdrawal. Plan 1. MRI brain and spine pending. 2. Continue antibiotics 3. Free water and replace potassium speech therapy evaluation 4. Cardiology recommendations regarding endocarditis work-up. 5. Continue insulin drip for DKA transition to Lantus 7. PT eval Case discussed with family at bedside Critical care time 40 minutes Stable for transfer to telemetry DEVIN HAGER MD, [facility] May 13, 2019 10:59
[2019-05-13] MEDS: FAMOTIDINE 20 MG INJ IV SCH (11:17)
[2019-05-13] MEDS: CEFTRIAXONE 2 GM/50 ML (PMX) 50 ML IVPB SCH (12:28)
[2019-05-14] MEDS: FAMOTIDINE 20 MG INJ IV SCH ×2 (00:16→09:36)
[2019-05-14] MEDS: DAKINS 0.0125%(1/40) 473 ML SOLUTION TP SCH ×3 (00:16→20:47)
[2019-05-14] MEDS: COLLAGENASE 5 GM (UD JAR) TOP SCH ×3 (00:16→20:47)
[2019-05-14] MEDS: MUPIROCIN 2% 22 GM OINT TOP SCH ×3 (00:16→20:47)
[2019-05-14] MEDS: INSULIN ASPART [NOVOLOG] 3 ML PEN SC SCH ×8 (00:18→20:46)
[2019-05-14] MEDS: INSULIN GLARGINE [LANTus] (100 UNITS/ML) SYG SC SCH ×3 (00:18→20:00)
[2019-05-14 00:42] VITALS: BP 112/76; PULSE 72; RESP 20
[2019-05-14] MEDS: ALBUTEROL/IPRATROPIUM (NEB) 3 ML AMP HHN SCH ×4 (01:08→19:50)
[2019-05-14] MEDS: ACCU-CHEK XX SCH (03:27)
[2019-05-14 04:51] VITALS: BP 131/63; PULSE 96; RESP 20
[2019-05-14 07:38] VITALS: BP 139/67; PULSE 79; RESP 18
[2019-05-14] MEDS: DOCUSATE SODIUM 10 MG/ML (10ML CUP) GTB SCH (09:36)
[2019-05-14] MEDS: ZINC SULFATE 220 MG CAP NGT SCH (09:36)
[2019-05-14] MEDS: ASCORBIC ACID 500 MG TAB NGT SCH (09:37)
[2019-05-14] MEDS: ENOXAPARIN 40 MG/0.4 ML SYG SC SCH (09:50)
[2019-05-14 11:00] VITALS: BP 126/76; PULSE 88; RESP 18
[2019-05-14] MEDS: CEFTRIAXONE 2 GM/50 ML (PMX) 50 ML IVPB SCH (11:37)
--- NOTE | 2019-05-14 12:53 | PN ---
Date/Time of Note Date/Time of Note DATE: 05/14/19 TIME: 12:50 Subjective Reports feeling better. Less back pain. Objective Vitals Vital Signs Date Temp Pulse Resp B/P (MAP) Pulse Ox O2 O2 Flow FiO2 Time Delivery Rate 05/14/19 98.3 88 18 126/76 99 Room Air 11:00 (93) 05/13/19 21 19:48 05/13/19 2.0 02:06 Intake and Output 05/13/19 05/13/19 05/14/19 1515:00 23:00 07:00 IntakeIntake Total 250 ml 350 ml 500 ml OutputOutput Total 670 ml BalanceBalance -420 ml 350 ml 500 ml Supple Bilateral rhonchi Regular rate and rhythm no murmurs or gallops Soft nontender nondistended normoactive bowel sounds No edema Nonfocal Results Result Diagram: 05/12/19 0450 05/12/19 1442 Medications Medications Current Medications IV Flush (NS 10 ml) 10 ml PRN PRN IV IV PROTOCOL; Start 05/07/19 at 17:30 Ondansetron HCl (Zofran Inj) 4 mg Q4H PRN IV nausea; Start 05/07/19 at 20:00 Morphine Sulfate (morphine) 4 mg Q4H PRN IV pain; Start 05/07/19 at 20:00 Acetaminophen (Tylenol Liquid) 650 mg Q4H PRN NGT MILD PAIN(1-3)OR ELEVATED TEMP Last administered on 05/12/19at 20:45; Admin Dose 650 MG; Start 05/08/19 at 10:00 Famotidine (Pepcid Iv) 20 mg BID IV Last administered on 05/14/19at 09:36; Admin Dose 20 MG; Start 05/08/19 at 12:30 Enoxaparin Sodium (Lovenox) 40 mg DAILY SC Last administered on 05/14/19at 09:50; Admin Dose 40 MG; Start 05/09/19 at 09:00 Collagenase (Santyl) 1 applic BID TOP Last administered on 05/14/19at 09:36; Admin Dose 1 APPLIC; Start 05/08/19 at 21:00 Sodium Hypochlorite (Dakins Diluted (40)) 1 applic BID TP Last administered on 05/14/19at 09:37; Admin Dose 1 APPLIC; Start 05/08/19 at 21:00 Ceftriaxone Sodium 50 ml @ 100 mls/hr Q24H IVPB Last administered on 05/14/19 11:37; Admin Dose 100 MLS/HR; Start 05/10/19 at 11:00 Mupirocin (Bactroban) 1 applic BID TOP Last administered on 05/14/19 09:37; Admin Dose 1 APPLIC; Start 05/11/19 at 21:00 Ascorbic Acid (Vitamin C) 500 mg DAILY NGT Last administered on 05/14/19 09:37; Admin Dose 500 MG; Start 05/12/19 at 09:00 Zinc Sulfate (Zinc Sulfate) 220 mg DAILY NGT Last administered on 05/14/19 09:36; Admin Dose 220 MG; Start 05/12/19 at 09:00 Docusate Sodium (Colace Liquid Cup) 100 mg QAM GTB Last administered on 05/14/19 09:36; Admin Dose 100 MG; Start 05/12/19 at 09:00 Albuterol/ Ipratropium (Duoneb) 3 ml Q6H RESP THERAPY HHN Last administered on 05/13/19 19:48; Admin Dose 3 ML; Start 05/12/19 at 14:00 Insulin Aspart (Novolog Insulin Pen) 5 unit WITH MEALS SC Last administered on 05/14/19 11:55; Admin Dose 5 UNIT; Start 05/12/19 at 17:35 Insulin Glargine (Lantus) 8 units BID@0800,2000 SC Last administered on 05/14/19at 08:24; Admin Dose 8 UNITS; Start 05/12/19 at 14:00 Miscellaneous Information 1 ea NOTE XX ; Start 05/12/19 at 13:30 Glucose (Glutose) 15 gm Q15M PRN PO DECREASED GLUCOSE; Start 05/12/19 at 13:30 Glucose (Glutose) 22.5 gm Q15M PRN PO DECREASED GLUCOSE; Start 05/12/19 at 13:30 Dextrose (D50w Syringe) 25 ml Q15M PRN IV DECREASED GLUCOSE; Start 05/12/19 at 13:30 Dextrose (D50w Syringe) 50 ml Q15M PRN IV DECREASED GLUCOSE; Start 05/12/19 at 13:30 Glucagon (Glucagen) 1 mg Q15M PRN IM DECREASED GLUCOSE; Start 05/12/19 at 13:30 Glucose (Glutose) 15 gm Q15M PRN BUCCAL DECREASED GLUCOSE; Start 05/12/19 at 13:30 Diagnostic Test (Pha) (Accu-Chek) 1 ea 02 XX Last administered on 05/14/19at 03:27; Admin Dose 1 EA; Start 05/14/19 at 02:00 Insulin Aspart (Novolog Insulin Pen) NOVOLOG *MODERATE* ALGORITHM WITH MEALS BEDTIME SC Last administered on 05/14/19at 11:55; Admin Dose 2 UNIT; Start 05/13/19 at 11:30 VTE Prophylaxis Risk score (from Ns)>0 risk: 4 SCD applied (from [facility] [place]): Yes Lines/Catheters IV Catheter Type: Saline Lock Goldman in Place: No Assessment/Plan Assessment/Plan 49-year-old male with bilateral pneumonia Acute respiratory failure, status post extubation Coag negative staph bacteremia History of IV drug abuse Lumbar epidural fluid collection. 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
[2019-05-14 15:43] VITALS: BP 136/67; PULSE 79; RESP 18
--- NOTE | 2019-05-14 16:15 | PN ---
DATE: 05/14/2019 SUBJECTIVE: Mr. Schwartz is stable this morning. No new events or respiratory distress. PHYSICAL EXAMINATION: VITAL SIGNS: Temperature 98, pulse is 88, blood pressure 126/76, O2 saturation 99% on room air. NECK: Supple. No JVD or lymphadenopathy. CARDIAC: S1, S2, no added sounds or murmurs. CHEST: Diminished air entry bilaterally. ABDOMEN: Soft, nontender. No guarding or rebound. EXTREMITIES: No cyanosis, clubbing, or edema. NEUROLOGIC: Grossly intact. No focal deficits. Generalized weakness. IMPRESSION: 1. Status post hypoxemic respiratory failure with pneumonia. 2. History of intravenous drug abuse. 3. Staph bacteremia. 4. Chronic pain. PLAN: 1. Patient to continue with antibiotics. 2. Aspiration precautions. 3. DVT and GI prophylaxis. Will likely need placement after neurological evaluation of epidural flu id collection concerning for possible abscess. Dictated By: DEVIN HAGER MD SV/LINA Conf#: [id number] DID#: [id number] CC: PHONG BRIGGS MD;*End*
[2019-05-14 20:00] VITALS: BP 132/77; PULSE 82; PULSE 85; RESP 20
[2019-05-14] MEDS: FAMOTIDINE 20 MG TAB NGT SCH (20:47)
[2019-05-15] VITALS (7 sets, daily range): BP systolic 110–142; BP diastolic 60–74; PULSE 67–93; RESP 17–20
[2019-05-15] MEDS: ACCU-CHEK XX SCH (00:43)
[2019-05-15] MEDS: ALBUTEROL/IPRATROPIUM (NEB) 3 ML AMP HHN SCH ×4 (01:34→19:54)
[2019-05-15] MEDS: ENOXAPARIN 40 MG/0.4 ML SYG SC SCH (08:43)
[2019-05-15] MEDS: ZINC SULFATE 220 MG CAP NGT SCH (08:43)
[2019-05-15] MEDS: DOCUSATE SODIUM 10 MG/ML (10ML CUP) GTB SCH (08:43)
[2019-05-15] MEDS: FAMOTIDINE 20 MG TAB NGT SCH ×2 (08:43→21:32)
[2019-05-15] MEDS: ASCORBIC ACID 500 MG TAB NGT SCH (08:43)
[2019-05-15] MEDS: COLLAGENASE 5 GM (UD JAR) TOP SCH ×2 (08:44→21:33)
[2019-05-15] MEDS: INSULIN ASPART [NOVOLOG] 3 ML PEN SC SCH ×7 (08:44→21:41)
[2019-05-15] MEDS: MUPIROCIN 2% 22 GM OINT TOP SCH ×2 (08:49→21:33)
[2019-05-15] MEDS: INSULIN GLARGINE [LANTus] (100 UNITS/ML) SYG SC SCH ×2 (08:54→21:40)
[2019-05-15] MEDS: DAKINS 0.0125%(1/40) 473 ML SOLUTION TP SCH ×2 (08:55→21:33)
[2019-05-15] MEDS: CEFTRIAXONE 2 GM/50 ML (PMX) 50 ML IVPB SCH (12:15)
--- NOTE | 2019-05-15 14:13 | PN ---
Date/Time of Note Date/Time of Note DATE: 05/15/19 TIME: 14:06 Assessment/Plan VTE Prophylaxis Risk score (from Nsg)>0 risk: 2 SCD applied (from Nsg): Yes Pharmacological prophylaxis: LMWH Lines/Catheters IV Catheter Type (from Nrsg): PICC Line Central line still needed: No Urinary Cath still in place: Yes Reason Cath still needed: other (indicate) (critically ill) Assessment/Plan Assessment/Plan [facility] 1. Mr. Schwartz is a 49-year-old man with a history of IVDU admitted with hypoxemic respiratory failure and pneumonia secondary to Staph bacteremia. Extubated three days ago, and breathing comfortably now on room air 2. History of intravenous drug use. ELIE with no vegetations, and normal cardiac exam (normal sinus rhythm without arrhythmia on telemetry). Echo (05/08/19) showed EF 55-60% with normal pericardium and mostly normal valves. 3. Staph bacteremia, with MRI of lumbar spine showing epidural fluid possibly consistent with abscess 4. Chronic pain 5. Loss of left arm 6. Right Dupuytren's contracture secondary to previous forearm injury 7. Type 2 diabetes on insulin 8. Hypochromic microcytic anemia with Hct 23.5% 9. Hypernatremia on labs three days ago * Repeat CBC, BMP now; address any residual hypernatremia * Continue ceftriaxone * Aspiration precautions * Neurosurgical consultation with Dr. Davey Darden * DVT and GI prophylaxis with Lovenox and famotidine respectively * Disposition: placement after neurological evaluation of epidural fluid collection concerning for possible abscess Calvin Law MD PhD [phone] Result Diagram: 05/12/19 0450 05/12/19 1442 Results 24hrs Laboratory Tests Test 05/14/19 17:43 05/14/19 20:45 05/15/19 00:38 05/15/19 08:42 Bedside Glucose 98 97 105 195 Test 05/15/19 12:17 Bedside Glucose 169 Subjective 24 Hr Interval Summary Free Text/Dictation Mother at bedside. No pain complaints now, with improved back comfort. No dyspnea, chest pain, nausea. Last bowel movement this morning. Exam/Review of Systems Exam Vitals Vital Signs Date Temp Pulse Resp B/P (MAP) Pulse Ox O2 O2 Flow FiO2 Time Delivery Rate 05/15/19 98.8 69 20 126/67 100 12:23 (86) 05/14/19 Room Air 11:00 05/13/19 21 19:48 05/13/19 2.0 02:06 Intake and Output 05/14/19 05/14/19 05/15/19 1515:00 23:00 07:00 IntakeIntake Total 300 ml OutputOutput Total 900 ml BalanceBalance -600 ml Exam GEN: Friendly, weak-appearing HEENT: Pupils are equal and reactive to light, EOMI, moist oral mucosa NECK: Supple, no JVD or cervical adenopathy Chest: Claer bilaterally, normal respiratory effort CVS: Regular rhythm, normal rate, no murmur Abd: Soft, nontender. No hepatomegaly Ext/MSk: No arthritis, clubbing, cyanosis, or edema noted. Left arm amputation below the elbow. Dupuytren's contracture on right. Neuro: Alert, oriented, speech and affect normal. Motor, cranial nerves intact. Mild bilateral lower extremity weakness. Results Results 24hrs Laboratory Tests Test 05/14/19 17:43 05/14/19 20:45 05/15/19 00:38 05/15/19 08:42 Bedside Glucose 98 97 105 195 Test 05/15/19 12:17 Bedside Glucose 169 Medications Medication Current Medications IV Flush (NS 10 ml) 10 ml PRN PRN IV IV PROTOCOL; Start 05/07/19 at 17:30 Ondansetron HCl (Zofran Inj) 4 mg Q4H PRN IV nausea; Start 05/07/19 at 20:00 Morphine Sulfate (morphine) 4 mg Q4H PRN IV pain; Start 05/07/19 at 20:00 Acetaminophen (Tylenol Liquid) 650 mg Q4H PRN NGT MILD PAIN(1-3)OR ELEVATED TEMP Last administered on 05/12/19at 20:45; Admin Dose 650 MG; Start 05/08/19 at 10:00 Enoxaparin Sodium (Lovenox) 40 mg DAILY SC Last administered on 05/15/19at 08:43; Admin Dose 40 MG; Start 05/09/19 at 09:00 Collagenase (Santyl) 1 applic BID TOP Last administered on 05/15/19at 08:44; Admin Dose 1 APPLIC; Start 05/08/19 at 21:00 Sodium Hypochlorite (Dakins Diluted (40)) 1 applic BID TP Last administered on 05/15/19 08:55; Admin Dose 1 APPLIC; Start 05/08/19 at 21:00 Ceftriaxone Sodium 50 ml @ 100 mls/hr Q24H IVPB Last administered on 05/15/19 12:15; Admin Dose 100 MLS/HR; Start 05/10/19 at 11:00 Mupirocin (Bactroban) 1 applic BID TOP Last administered on 05/15/19 08:49; Admin Dose 1 APPLIC; Start 05/11/19 at 21:00 Ascorbic Acid (Vitamin C) 500 mg DAILY NGT Last administered on 05/15/19 08:43; Admin Dose 500 MG; Start 05/12/19 at 09:00 Zinc Sulfate (Zinc Sulfate) 220 mg DAILY NGT Last administered on 05/15/19 08:43; Admin Dose 220 MG; Start 05/12/19 at 09:00 Docusate Sodium (Colace Liquid Cup) 100 mg QAM GTB Last administered on 05/15/19 08:43; Admin Dose 100 MG; Start 05/12/19 at 09:00 Albuterol/ Ipratropium (Duoneb) 3 ml Q6H RESP THERAPY HHN Last administered on 05/13/19 19:48; Admin Dose 3 ML; Start 05/12/19 at 14:00 Insulin Aspart (Novolog Insulin Pen) 5 unit WITH MEALS SC Last administered on 05/15/19 12:18; Admin Dose 5 UNIT; Start 05/12/19 at 17:35 Insulin Glargine (Lantus) 8 units BID@0800,2000 SC Last administered on 05/15/19 08:54; Admin Dose 8 UNITS; Start 05/12/19 at 14:00 Miscellaneous Information 1 ea NOTE XX ; Start 05/12/19 at 13:30 Glucose (Glutose) 15 gm Q15M PRN PO DECREASED GLUCOSE; Start 05/12/19 at 13:30 Glucose (Glutose) 22.5 gm Q15M PRN PO DECREASED GLUCOSE; Start 05/12/19 at 13:30 Dextrose (D50w Syringe) 25 ml Q15M PRN IV DECREASED GLUCOSE; Start 05/12/19 at 13:30 Dextrose (D50w Syringe) 50 ml Q15M PRN IV DECREASED GLUCOSE; Start 05/12/19 at 13:30 Glucagon (Glucagen) 1 mg Q15M PRN IM DECREASED GLUCOSE; Start 05/12/19 at 13:30 Glucose (Glutose) 15 gm Q15M PRN BUCCAL DECREASED GLUCOSE; Start 05/12/19 at 13:30 Diagnostic Test (Pha) (Accu-Chek) 1 ea 02 XX Last administered on 05/15/19at 00:43; Admin Dose 1 EA; Start 05/14/19 at 02:00 Insulin Aspart (Novolog Insulin Pen) NOVOLOG *MODERATE* ALGORITHM WITH MEALS BEDTIME SC Last administered on 05/15/19at 12:19; Admin Dose 2 UNIT; Start 05/13/19 at 11:30 Famotidine (Pepcid) 20 mg BID NGT Last administered on 05/15/19at 08:43; Admin Dose 20 MG; Start 05/14/19 at 21:00 LUI LAW M.D. May 15, 2019 14:13
[2019-05-16] MEDS: ALBUTEROL/IPRATROPIUM (NEB) 3 ML AMP HHN SCH ×4 (01:40→19:41)
[2019-05-16] MEDS: ACCU-CHEK XX SCH (03:19)
[2019-05-16 04:44] VITALS: BP 116/67; PULSE 85; RESP 18
[2019-05-16 07:39] VITALS: BP 127/71; PULSE 88; RESP 18
[2019-05-16] MEDS: COLLAGENASE 5 GM (UD JAR) TOP SCH ×2 (09:00→21:18)
[2019-05-16] MEDS: FAMOTIDINE 20 MG TAB NGT SCH ×2 (09:01→21:19)
[2019-05-16] MEDS: ASCORBIC ACID 500 MG TAB NGT SCH (09:01)
[2019-05-16] MEDS: ZINC SULFATE 220 MG CAP NGT SCH (09:01)
[2019-05-16] MEDS: DOCUSATE SODIUM 10 MG/ML (10ML CUP) GTB SCH (09:02)
[2019-05-16] MEDS: ENOXAPARIN 40 MG/0.4 ML SYG SC SCH (09:02)
[2019-05-16] MEDS: INSULIN ASPART [NOVOLOG] 3 ML PEN SC SCH ×7 (09:03→21:34)
[2019-05-16] MEDS: MUPIROCIN 2% 22 GM OINT TOP SCH ×2 (09:03→21:19)
[2019-05-16] MEDS: DAKINS 0.0125%(1/40) 473 ML SOLUTION TP SCH ×2 (09:03→21:18)
[2019-05-16] MEDS: INSULIN GLARGINE [LANTus] (100 UNITS/ML) SYG SC SCH ×2 (09:58→21:49)
--- NOTE | 2019-05-16 11:18 | CONS ---
Assessment/Plan Assessment/Plan Assessment/Plan (Daily) Date of consultation: 05/16/2019 Requesting physician:Dr. 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 The patient had to be intubated in the ICU for respiratory distress. The patient was found to have bacteremia with staph aureus and started on antibiotics. He was subsequently weaned off the ventilator and extubated. As part of his workup, he had CT imaging of the lumbar spine as well as an MRI of the lumbar spine without contrast that showed some possible spinal fluid collection with a concern for possible spinal infection. Neurosurgery has been consulted subsequent to that. The patient denies any back pain at this time. He denies any pain, numbness or paresthesias involving his lower extremities. He denies bowel or bladder dysfunction. The patient was started on physical therapy several days ago and was able to stand but he overall felt weak and not able to take steps yet. The patient who is currently awake and alert is a very poor historian and cannot recall any details. However, he tells me that a few weeks ago he was treated at [facility] where he apparently had a spinal tap for unknown reasons. He is not sure what the spinal tap showed. Past medical history: Insulin-dependent diabetes, history of IV drug use, left below elbow amputation Allergies:No known drug allergies Review of systems: Patient denies chest pain, shortness of breath or heartburn. Please see above for pertinent positives and negatives. Family history: Unknown Social history: Denies use of tobacco, EtOH. History of IV drug use. Physical examination: This is a middle-age male lying in bed in no apparent distress. Patient is awake alert and oriented to person, the year and the place. Language is fluent. Face is symmetric. Extraocular movements are grossly normal. Tongue is midline. Shoulder shrugs are symmetric. There is a left below the elbow amputation. Muscle bulk and tone is normal bilateral upper and lower extremities. Rectal tone examination has been deferred per patient request. Deep tendon reflexes are 1+ bilateral upper and lower extremities. Sensation to light touch is grossly normal bilateral upper and lower extremities. Motor strength is 4 out of 5 bilateral upper and lower extremities except for the left below the elbow where there is an amputation. [There is no Oliver sign present on the right. There is no dysdiadochokinesia on the right. Toes are downgoing bilaterally. Straight leg raise bilaterally more than 30 causes no lower extremity pain. Gait testing has been deferred per patient request. CERVICAL SPINE: Examination of the cervical spine reveals no significant tenderness. CERVICAL SPINE ACTIVE RANGE OF MOTION: Near full. THORACIC SPINE: Examination of the thoracic spine reveals no significant tenderness. LUMBOSACRAL SPINE: Examination of the lumbar spine reveals mild diffuse tenderness. There is no significant tenderness involving the posterior superior iliac spine region bilaterally. LUMBOSACRAL SPINE ACTIVE RANGE OF MOTION: Has been deferred as the patient does not wish to stand at this time. Imaging: CT lumbar spine without contrast: There is no evidence of a fracture or subluxation noted. There is no endplate deformity. MRI of lumbar spine without contrast: There is extensive motion artifact on the sagittal and axial T2 sequences that makes any interpretation near impossible. However the sagittal T2 sequences do not show any obvious evidence of disc space signal changes that would typically occur in a case of discitis. There is some signal changes within the L4 and L5 vertebral bodies but it is not clear where this is that actual finding or an artifact. The radiologist has noted some v ague findings of fluid in the interspinous region and possibly the spinal canal but with my interpretation it is impossible to make any interpretation of the imaging at this time. Laboratory: WBC: 28.0 (05/07/2019) 10.6 (05/12/2019) ESR: 102 (05/14/2019) C-reactive protein: 5.5 (05/14/2019) Assessment/plan: This is a 49-year-old male with poorly controlled insulin- dependent diabetes admitted for diabetic ketoacidosis with altered level of consciousness requiring intubation. The patient is currently doing clinically much better than his admission time where he has now been extubated, transferred to the floor with progressively decreasing white blood cell count now in the normal range. The patient does not have any acute gross evidence of sensorimotor changes of his upper or lower extremities. As described above, the MRI of the lumbar spine that the patient received without contrast cannot be meaningfully interpreted due to extensive motion artifact and in my assessment of very little to no value. Given the fact that the patient continues to be doing clinically better on a daily basis, I do not recommend any further imaging of the patient's lumbar spine. However, I do recommend obtaining serial ESR and C-reactive protein studies every week to further assess for the overall response of his systemic infection to antibiotics. If the patient develops any back pain or sensorimotor changes or his infection recurs or does not respond, then I would recommend obtaining an MRI of the lumbar spine with and without contrast for further evaluation. If the patient requires sedation to help limit motion artifact that would also be recommended prior to obtaining any MR imaging. REEMA SINGH MD May 16, 2019 11:18
[2019-05-16 11:29] VITALS: BP 132/70; PULSE 91; RESP 17
[2019-05-16] MEDS: CEFTRIAXONE 2 GM/50 ML (PMX) 50 ML IVPB SCH (11:53)
[2019-05-16 15:52] VITALS: BP 139/68; PULSE 94; RESP 18
--- NOTE | 2019-05-16 16:29 | PN ---
Date/Time of Note Date/Time of Note DATE: 05/16/19 TIME: 16:25 Assessment/Plan VTE Prophylaxis Risk score (from Nsg)>0 risk: 2 SCD applied (from Nsg): Yes Pharmacological prophylaxis: LMWH Lines/Catheters IV Catheter Type (from Nrsg): PICC Line Central line still needed: No Urinary Cath still in place: Yes Reason Cath still needed: other (indicate) (To be discontinued today) Assessment/Plan Assessment/Plan [facility] 1. Mr. Schwartz is a 49-year-old man with a history of IVDU admitted with hypoxemic respiratory failure and pneumonia secondary to Staph bacteremia. Extubated now four days ago, and breathing comfortably on room air 2. History of intravenous drug use. ELIE with no vegetations, and normal cardiac exam (normal sinus rhythm without arrhythmia on telemetry). Echo (05/08/19) showed EF 55-60% with normal pericardium and mostly normal valves. 3. Staph bacteremia, with MRI of lumbar spine showing epidural fluid possibly consistent with abscess. Appreciate Dr. Davey Darden's thorough consult, recomm ending no further imaging or intervention for now 4. Chronic pain 5. Loss of left arm 6. Right Dupuytren's contracture secondary to previous forearm injury 7. Type 2 diabetes on insulin 8. Hypochromic microcytic anemia with Hct 23.5% 9. Hypernatremia on labs four days ago * Repeat CBC, BMP now (not performed yesterday, as intended); address any residual hypernatremia * Continue ceftriaxone * Remove Goldman, placed while intubated. He says he could use a urinal, and avoiding an iatrogenic UTI is a priority * ID consult tomorrow to address antibiotic selection in * Aspiration precautions * Per Dr. Darden, no indication now for neurosurgical or interventional radiology procedures * Monitor ESR/CRP as a measure of progress against the infection * DVT and GI prophylaxis with Lovenox and famotidine respectively * Disposition: Outpatient antibiotic planning with possible discharge home (lottie alejandro with his father) tomorrow Calvin Law MD PhD [phone] Result Diagram: 05/12/19 0450 05/12/19 1442 Results 24hrs Laboratory Tests Test 05/15/19 17:51 05/15/19 21:31 05/16/19 03:08 05/16/19 09:00 Bedside Glucose 106 282 H 203 257 H Test 05/16/19 11:53 Bedside Glucose 159 Subjective 24 Hr Interval Summary Free Text/Dictation Continued improvement, with less back pain. Eating well now, stooling normally. Goldman catheter in place. Legs also less uncomfortable. No problem walking with assistance, he says. Mother visited earlier, but no family/visitors curr ently. Exam/Review of Systems Exam Vitals Vital Signs Date Temp Pulse Resp B/P (MAP) Pulse Ox O2 O2 Flow FiO2 Time Delivery Rate 05/16/19 98.3 94 18 139/68 100 15:52 (91) 05/16/19 13:56 05/14/19 Room Air 11:00 05/13/19 2.0 02:06 Intake and Output 05/15/19 05/15/19 05/16/19 1515:00 23:00 07:00 IntakeIntake Total 400 ml OutputOutput Total 500 ml 1350 ml BalanceBalance -500 ml -950 ml Exam GEN: Friendly, weak-appearing, lying in bed HEENT: Pupils are equal and reactive to light, EOMI, moist oral mucosa Chest: Clear bilaterally, normal respiratory effort CVS: Regular rhythm, normal rate, no murmur or JVD Abd: Soft, nontender. No hepatomegaly Ext/MSk: No arthritis, clubbing, cyanosis, or edema noted. Left arm amputation below the elbow. Dupuytren's contracture on right. Neuro: Alert, oriented, speech and affect normal. Motor, cranial nerves intact. Mild bilateral lower extremity weakness. Results Results 24hrs Laboratory Tests Test 05/15/19 17:51 05/15/19 21:31 05/16/19 03:08 05/16/19 09:00 Bedside Glucose 106 282 H 203 257 H Test 05/16/19 11:53 Bedside Glucose 159 Medications Medication Current Medications IV Flush (NS 10 ml) 10 ml PRN PRN IV IV PROTOCOL; Start 05/07/19 at 17:30 Ondansetron HCl (Zofran Inj) 4 mg Q4H PRN IV nausea; Start 05/07/19 at 20:00 Morphine Sulfate (morphine) 4 mg Q4H PRN IV pain; Start 05/07/19 at 20:00 Acetaminophen (Tylenol Liquid) 650 mg Q4H PRN NGT MILD PAIN(1-3)OR ELEVATED TEMP Last administered on 05/12/19 20:45; Admin Dose 650 MG; Start 05/08/19 at 10:00 Enoxaparin Sodium (Lovenox) 40 mg DAILY SC Last administered on 05/16/19 09:02; Admin Dose 40 MG; Start 05/09/19 at 09:00 Collagenase (Santyl) 1 applic BID TOP Last administered on 05/16/19 09:00; Admin Dose 1 APPLIC; Start 05/08/19 at 21:00 Sodium Hypochlorite (Dakins Diluted ()) 1 applic BID TP Last administered on 05/16/19 09:03; Admin Dose 1 APPLIC; Start 05/08/19 at 21:00 Ceftriaxone Sodium 50 ml @ 100 mls/hr Q24H IVPB Last administered on 05/16/19 11:53; Admin Dose 100 MLS/HR; Start 05/10/19 at 11:00 Mupirocin (Bactroban) 1 applic BID TOP Last administered on 05/16/19 09:03; Admin Dose 1 APPLIC; Start 05/11/19 at 21:00 Ascorbic Acid (Vitamin C) 500 mg DAILY NGT Last administered on 05/16/19 09:01; Admin Dose 500 MG; Start 05/12/19 at 09:00 Zinc Sulfate (Zinc Sulfate) 220 mg DAILY NGT Last administered on 05/16/19 09:01; Admin Dose 220 MG; Start 05/12/19 at 09:00 Docusate Sodium (Colace Liquid Cup) 100 mg QAM GTB Last administered on 05/16/19 09:02; Admin Dose 100 MG; Start 05/12/19 at 09:00 Albuterol/ Ipratropium (Duoneb) 3 ml Q6H RESP THERAPY HHN Last administered on 05/16/19 13:56; Admin Dose 3 ML; Start 05/12/19 at 14:00 Insulin Aspart (Novolog Insulin Pen) 5 unit WITH MEALS SC Last administered on 05/16/19 11:54; Admin Dose 5 UNIT; Start 05/12/19 at 17:35 Insulin Glargine (Lantus) 8 units BID@0800,2000 SC Last administered on 9at 09:58; Admin Dose 8 UNITS; Start 05/12/19 at 14:00 Miscellaneous Information 1 ea NOTE XX ; Start 05/12/19 at 13:30 Glucose (Glutose) 15 gm Q15M PRN PO DECREASED GLUCOSE; Start 05/12/19 at 13:30 Glucose (Glutose) 22.5 gm Q15M PRN PO DECREASED GLUCOSE; Start 05/12/19 at 13:30 Dextrose (D50w Syringe) 25 ml Q15M PRN IV DECREASED GLUCOSE; Start 05/12/19 at 13:30 Dextrose (D50w Syringe) 50 ml Q15M PRN IV DECREASED GLUCOSE; Start 05/12/19 at 13:30 Glucagon (Glucagen) 1 mg Q15M PRN IM DECREASED GLUCOSE; Start 05/12/19 at 13:30 Glucose (Glutose) 15 gm Q15M PRN BUCCAL DECREASED GLUCOSE; Start 05/12/19 at 13:30 Diagnostic Test (Pha) (Accu-Chek) 1 ea 02 XX Last administered on 05/16/19at 03:19; Admin Dose 1 EA; Start 05/14/19 at 02:00 Insulin Aspart (Novolog Insulin Pen) NOVOLOG *MODERATE* ALGORITHM WITH MEALS BEDTIME SC Last administered on 05/16/19at 11:54; Admin Dose 2 UNIT; Start at 11:30 Famotidine (Pepcid) 20 mg BID NGT Last administered on 05/16/19at 09:01; Admin Dose 20 MG; Start 05/14/19 at 21:00 LUI LAW M.D. May 16, 2019 16:29
[2019-05-16] MEDS ORDERED: POTASSIUM CHLORIDE (SR) 20 MEQ TAB PO STA (17:44)
[2019-05-16 20:00] VITALS: BP 134/77; PULSE 96; RESP 18
[2019-05-16 23:15] VITALS: BP 128/75; PULSE 81; RESP 20
[2019-05-17] MEDS: ALBUTEROL/IPRATROPIUM (NEB) 3 ML AMP HHN SCH ×4 (02:00→20:03)
[2019-05-17] MEDS: ACCU-CHEK XX SCH (02:21)
[2019-05-17 04:58] VITALS: BP 141/71; PULSE 79; RESP 18
[2019-05-17 07:48] VITALS: BP 138/71; PULSE 80; RESP 18
[2019-05-17] MEDS: DOCUSATE SODIUM 10 MG/ML (10ML CUP) GTB SCH (08:55)
[2019-05-17] MEDS: COLLAGENASE 5 GM (UD JAR) TOP SCH ×2 (09:00→20:21)
[2019-05-17] MEDS: DAKINS 0.0125%(1/40) 473 ML SOLUTION TP SCH ×2 (09:00→20:24)
[2019-05-17] MEDS: ZINC SULFATE 220 MG CAP NGT SCH (09:39)
[2019-05-17] MEDS: ASCORBIC ACID 500 MG TAB NGT SCH (09:39)
[2019-05-17] MEDS: MUPIROCIN 2% 22 GM OINT TOP SCH ×2 (09:39→20:24)
[2019-05-17] MEDS: FAMOTIDINE 20 MG TAB NGT SCH ×2 (09:39→20:21)
[2019-05-17] MEDS: INSULIN ASPART [NOVOLOG] 3 ML PEN SC SCH ×7 (09:51→20:21)
[2019-05-17] MEDS: ENOXAPARIN 40 MG/0.4 ML SYG SC SCH (09:51)
[2019-05-17] MEDS ORDERED: Insulin Glargine SC (10:23)
[2019-05-17] MEDS ORDERED: ENOX40DI2 SC (10:23)
[2019-05-17] MEDS ORDERED: ACET650S25 NGT (10:23)
[2019-05-17] MEDS ORDERED: NOVO3I SC (10:23)
[2019-05-17] MEDS ORDERED: LEVO500T10 PO (10:23)
[2019-05-17] MEDS ORDERED: FAMO20TA18 PO (10:23)
[2019-05-17 11:36] VITALS: BP 131/79; PULSE 105; RESP 19
[2019-05-17] MEDS: CEFTRIAXONE 2 GM/50 ML (PMX) 50 ML IVPB SCH (12:19)
[2019-05-17 15:41] VITALS: BP 129/80; PULSE 114; RESP 20
[2019-05-17 19:59] VITALS: BP 116/70; PULSE 104; RESP 18
[2019-05-17] MEDS: INSULIN GLARGINE [LANTus] (100 UNITS/ML) SYG SC SCH (20:33)
--- NOTE | 2019-05-18 03:18 | DS ---
DATE OF ADMISSION: 05/07/2019 DATE OF DISCHARGE: 05/17/2019 DISCHARGE DIAGNOSES: A 49-year-old male with: 1. Bilateral pneumonia, resolved. 2. Acute respiratory failure, status post extubation. 3. Coag negative staph bacteremia. 4. Long history of IV drug abuse. 5. Type 2 diabetes mellitus. 6. Diabetic ketoacidosis, resolved. 7. 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 8. Lumbar epidural fluid collection. HOSPITAL COURSE: A 49-year-old male with long history of IV drug abuse, was admitted to the hospital following acute hypoxemic respiratory failure. The patient was diagnosed with bilateral pneumonia. Blood cultures grew staph bacteremia. The patient received appropriate IV antibiotic therapy. A tr ansesophageal echocardiogram did not show any vegetations. Ejection fraction was 55% to 60%. The pa tient complained of low back pain. Lumbar spine MRI showed epidural fluid collection. The patient w as seen in consultation by Dr. Davey Darden. There was no need for any intervention. His symptoms imp roved in the next several days. Initially, the patient presented with diabetic ketoacidosis. Even though he has type 2 diabetes tay itus, the patient is prone to developing diabetic ketoacidosis. He was started on long-acting and sh ort-acting insulin therapy. Blood sugars were fairly stable during the hospitalization. The patient is in a stable condition for transition to senior care facility. He requires physical therapy a nd rehabilitation. I had a long conversation with the patient and his mother regarding cessation of IV drugs. I explained to them that continuous use can be fatal. The patient is in a stable conditio n for transition to senior care facility. Oral Levaquin will be continued for additional 7 days. Dictated By: SHEYLA WERNER MD SK/NTS Conf#: [id number] DID#: [id number] CC: LALO BENSON MD; PHONG BRIGGS MD;*[facility]*
== END 2019-05-17 22:30 | DRG 870 ==
LOC: E/R 12:46 → EDBD 12:46 → ICU 18:29 → 6WM 05-13 14:09
PROVIDERS: ADMIT Legal Medicine; ATTEND Legal Medicine
PROC: 0BH17EZ Insertion of Endotracheal Airway into Trachea, Via Natural or Artificial Opening (ICD-10-PCS; principal; 2019-05-07)
PROC: 5A1955Z Respiratory Ventilation, Greater than 96 Consecutive Hours (ICD-10-PCS; 2019-05-07)
PROC: 02H633Z Insertion of Infusion Device into Right Atrium, Percutaneous Approach (ICD-10-PCS; 2019-05-07)
PROC: B24BZZ4 Ultrasonography of Heart with Aorta, Transesophageal (ICD-10-PCS; 2019-05-10)
DX: A41.9 Sepsis, unspecified organism (principal); J96.01 Acute respiratory failure with hypoxia; R65.21 Severe sepsis with septic shock; J18.9 Pneumonia, unspecified organism; E11.10 Type 2 diabetes mellitus with ketoacidosis without coma; L89.224 Pressure ulcer of left hip, stage 4; I26.90 Septic pulmonary embolism without acute cor pulmonale; N17.9 Acute kidney failure, unspecified; E87.2 Acidosis; E87.1 Hypo-osmolality and hyponatremia; E87.0 Hyperosmolality and hypernatremia; F11.20 Opioid dependence, uncomplicated; D63.8 Anemia in other chronic diseases classified elsewhere; E83.39 Other disorders of phosphorus metabolism; E87.6 Hypokalemia; G89.29 Other chronic pain; L89.210 Pressure ulcer of right hip, unstageable; M72.0 Palmar fascial fibromatosis [Dupuytren]; Z89.212 Acquired absence of left upper limb below elbow; Z79.4 Long term (current) use of insulin
CPT/HCPCS: 31500; 36415; 36569; 36600; 70450; 71045; 71260; 72131; 72148; 74176; 76937; 80048; 80053; 80202; 80307; 81001; 82010; 82803; 82962; 83036; 83605; 83735; 84100; 84132; 84484; 85025; 85651; 86140; 87070; 87081; 87086; 89220; 92526; 92610; 93306; 93312; 93325; 94002; 94003; 94640; 94664; 94770; 96374; 96375; 97110; 97163; 97530; J0692; J0696; J1650; J1815; J2250; J2270; J2370; J2543; J3010; J3370; J3475; J3480; J7030; J7040; J7070; J7120; Q9967